=== PATIENT | male | born 1970 | race Caucasian/White ===

== ENCOUNTER → 2016-09-24 | Outpatient (CLI) | payer BC ==
[2016-09-24 13:32] LABS: ALT/SGPT 89 U/L (12-78); AST/SGOT 39 U/L (15-37); BLOOD UREA NITROGEN 17 mg/dl (7-18); BUN/CREATININE RATIO 13.9 (10-20); CALCIUM 8.5 mg/dl (8.5-10.1); CARBON DIOXIDE 26 mmol/L (21-32); CHLORIDE 107 mmol/L (98-107); GLUCOSE 94 mg/dl (70-99); POTASSIUM 4.3 mmol/L (3.5-5.1); SODIUM 142 mmol/L (136-145)
[2016-09-24 13:37] LABS: ALB/GLOB RATIO 1.3 (0.9-2); ALKALINE PHOSPHATASE 71 U/L (45-117); CHOLESTEROL 198 mg/dl (0-200); CHOLESTEROL/HDL RATIO 4.5; HDL CHOLESTEROL 44 mg/dl; LDL CHOLESTEROL CALCULATED 128 mg/dl; TRIGLYCERIDES 129 mg/dl (0-150); VERY LOW DENSITY LIPOPROT CALC 26 mg/dl
== END | disposition home or self-care (01) ==
LOC: C.LABPBG 08:30
PROVIDERS: ATTEND Neuromusculoskeletal Medicine & OMM
DX: Z00.00 Encounter for general adult medical examination without abnormal findings (principal); Z12.5 Encounter for screening for malignant neoplasm of prostate; E78.5 Hyperlipidemia, unspecified

== ENCOUNTER 2023-12-09 05:12 | Observation (INO) ==
--- NOTE | 2023-12-02 10:10 | Anesthesiology Consultation ---
Date of Service December 02, 2023 Assessment & Plan (1) Encounter for pre-operative examination: - Check BSG AM DOS - Infectious disease screening: Per assessment on 11/30/23: No known recent infectious disease contacts or current infectious disease symptoms. Chart Review Chart Review: Acceptable Risk for Surgery and Patient NOT seen in Pre Admission Testing History Surgery Operation Date: 12/09/23 07:15 Proposed Procedures p Hand Assisted Laparoscopic Nephrectomy - Farooq - Norris Byers, Height/Weight Height: 5 ft 11 in Weight: 112.037 kg Allergies Allergy/AdvReac Type Severity Reaction Status Date / Time Iodinated Contrast Media Allergy Intermediate Skin Verified 12/02/23 10:10 redness Medications Home Medications Medication Instructions Recorded Confirmed Last Taken triamcinolone acetonide 55 mcg 2 sprays intranasal QAM 03/06/19 11/30/23 09/20/21 nasal spray aerosol (Nasacort) cyanocobalamin (vitamin B-12) 1,000 mcg PO QAM 09/16/21 11/30/23 09/20/21 1,000 mcg tablet (Vitamin B-12) magnesium 250 mg tablet 250 mg PO QAM 09/16/21 11/30/23 09/20/21 omega-3 fatty acids 1,000 mg PO QAM 09/16/21 11/30/23 09/20/21 vitamin D3 250 mcg (10,000 1 cap PO QAM 09/16/21 11/30/23 09/20/21 unit)-vitamin K2 45 mcg capsule metformin 500 mg tablet 500 mg PO BID #60 tabs 09/23/23 11/30/23 Unknown hydrochlorothiazide 12.5 mg tablet 12.5 mg PO QAM #90 tabs 10/06/23 11/30/23 Unknown losartan 50 mg tablet 50 mg PO QAM #90 tabs 10/06/23 11/30/23 Unknown Past Medical History Medical History History of COVID-19 Dx 10/2020: mild, no symptoms Hyperlipidemia Hypertension Prediabetes Renal cell cancer Past Family History Family History Mother Diabetes Heart disease Kidney stones Breast cancer Hypertension Other No family history of adverse response to anesthesia Denies family history of Ovarian cancer Prostate cancer Myocardial infarction Colorectal cancer Past Surgical History Surgical History History of tooth extraction History of wisdom tooth extraction S/P arthroscopic knee surgery (2010) Right Social History Smoking Status: Never smoker tobacco type: smokeless tobacco Smoking cigarettes per day: 1/4 can per day Do You Dip or Chew Tobacco: Yes Hx Alcohol Use: No Alcohol type: beer alcohol intake frequency: a few times a month Hx Substance Use: No substance use type: does not use Lab Results Anesthesia Preop Results Results Anesthesia Widget: WBC 13.48 K/ul (4.8-10.8) H 11/22/23 Hgb 16.3 g/dl (14.0-18.0) 11/22/23 Hct 46.9 % (42.0-52.0) 11/22/23 Plt 199 K/uL (130-400) 11/22/23 Na 137 mmol/L (136-145) 11/22/23 K 4.0 mmol/L (3.5-5.1) 11/22/23 Cl 102 mmol/L (98-107) 11/22/23 CO2 26 mmol/L (21-32) 11/22/23 BUN 14 mg/dl (6-23) 11/22/23 Creat 1.07 mg/dl (0.6-1.4) 11/22/23 Glucose Level 119 mg/dl (70-99(Fasting)) H 11/22/23 PT 10.3 Seconds (9.0-12.0) 11/22/23 INR 0.9 (0.9-1.1) 11/22/23 HA1c 6.5 % (4.5-5.6) H 11/22/23 Testing Laboratory Results Urine culture (11/28/23): No growth Electrocardiogram Date: 12/01/23 Findings: + NSR @ (74) Chest X-Ray Date: 12/01/23 FINDINGS: No focal lung consolidations to suggest a pneumonia. The heart is normal in size. No pleural effusions. No pneumothorax. No acute fractures. The patient's known right lower lobe nodule is now well visualized on this modality. IMPRESSION: No acute process within the chest.
--- OUTSIDE RECORDS SUMMARY | 2023-12-09 05:54 | External Medical Summary | Summary of Care ---
Author Name Unknown Organization [facility] Address [address] [place] [address] Phone [phone] Care Team Providers Care Chief Station Engineer Name Role Phone Unavailable Primary Care Provider Unavailabl e Reason for Visit * Reason Onset Date Comments Test Results 12/01/2023 Encounter Details Date Type Department Care Team (Late st Contact Info) Description 12/01/2023 Telephone Thoracic Surg [facility] [address], [place] [phone] Fabiola Londono RN Test Results Allergies No known active allergiesdocumented as of this encounter (statuses as of 12/01/2023) Medications Medication Sig Dispensed Refills Start Date End Date Status JOHN-D 12 HOUR 60-120 MG PO [id number]:Acut e URI One pill by mouth twice a day as needed. Do not crush, cut or chew 20 Tab 0 08/18/2012 Active Triamcinolone Acetonide (NASACORT AQ) 55 MCG/ACT AEROIndications:Seas onal allergic rhinitis Administer 2 Sprays into each nostril daily. 3 Bottle 1 07/14/2015 Active documented as of this encounter (statuses as of 12/01/2023) Active Problems Problem Noted Date Diagnosed Date High triglycerides 02/05/2011 FAM HX-DIABETES MELLITUS 01/08/2005 Allergic rhinitis 01/03/2004 documented as of this encounter (statuses as of 12/01/2023) Resolved Problems Problem Noted Date Diagnosed Date Resolved Date Tobacco use disorder 08/10/2011 016 Patellofemoral syndrome 07/06/201006/17 Elevated liver enzymes 01/08/200507/08 documented as of this encounter (statuses as of 12/01/2023) Immunizations Name Administration Dates Next Due Pneumococcal Polysaccharide PPV23 (Pneumovax) Seasonal Influenza, Quadrivalent, No Preserve, I M 01/16/2015 Seasonal Influenza, Split, IIV3, No Preserve, In j 01/30/2010 TDAP, Age 7 and older, IM (Adacel) 08/08/2007 documented as of this encounter Social History Tobacco Use Types Packs/Day Years Used Date Smoking Tobacco: Former Cigarettes 0.5 3 Smokeless Tobacco: Former Comments:quit 07/2014 Alcohol Use Standard Drinks/Week Comments Yes 0 (1 standard drink = 0.6 oz pur e alcohol) social Utilities Answer Date Recorded Do you have trouble paying y our heating, water, or electric bill? (Adult - for ages 18 years and over) Not on file 10/04/2023 Is your family able to pay t he heat, water, or electric bill? (Household - for ages 0-17 years) Not on file 10/04/2023 Does your family have access to good internet? (Household - for ages 0-17 years) Not on file 10/04/2023 Social Connections Answer Date Recorded How often do you feel lonely or isolated from those around you? (Adult - for ages 18 years and over) Not on file 10/04/2023 Sex and Gender Information Value Date Recorded Sex Assigned at Not on file Gender Identity Not on file Sexual Orientation Not on file documented as of this encounter Miscellaneous Notes * Telephone Encounter - Fabiola Londono RN - 12/01/2023 2:[address] Judge's office to see if patient had a PET done. I was told "it looks like it is being done today." I asked about getting the results faxed to me once done, they requested a me to fax a request to them so they can flag it to send to me. I will await and call again to have it faxed to me and images pushed over I called [facility] to have the Ct chest pushed over. Fabiola Londono RN MSN [facility] Thoracic Surgery Nurse Navigator [facility] documented in this encounter Plan of Treatment Upcoming Encounters Date Type Department Care Team (Late st Contact Info) Description 12/22/2023 9:00 AM EDT Telemedicine Thoracic Surg [facility] [address] [place] [address] Jan Menon MD [address] [place] [address] Health Maintenance Due Date Last Done Comments HIV Screening 08/15/1986 Hepatitis C Screening 08/15/1989 Hepatitis B Vaccine (1 of 3 - 19+ 3-dose series) 08/15/1990 Depression Screening 07/09/2015 07/08/2014 Cologuard 08/15/2016 Colonoscopy 08/15/2016 Colorectal Cancer Screening 08/15/2016 Fecal Occult Blood Test 08/15/2016 Sigmoidoscopy 08/15/2016 DTaP,Tdap,and Td Vaccines (2 - Td or Tdap) 08/07/2017 08/08/2007 Lipid Panel 07/09/2019 07/08/2014, 08/16, 12/09/2011, Additional history exists Zoster Vaccines (1 of 2) 08/15/2021 COVID-19 Vaccine ( season) 2022 Influenza Vaccine (FLU shot) (#1) 2023 01/16/2015, 01/30/2010 Pneumococcal Vaccine: Pediatrics (0 to 5 Years) and At-Risk Patients (6 to 64 Years) Aged Out 01/25/2009 No longer eligible based on patient's age to complete this topic HPV (Gardasil) Vaccine Aged Out No lo nger eligible based on patient's age to complete this topic MENINGOCOCCAL (MENACTRA/MENVEO) Aged Out No longer eligible based on patient's age to complete this topic documented as of this encounter Medical Devices Not on filedocumented as of this encounter
--- OUTSIDE RECORDS SUMMARY | 2023-12-09 05:54 | External Medical Summary | Summary of Care ---
Author Name Unknown Organization [facility] Address [address] [place] [address] Phone [phone] Care Team Providers Care Pit Slagman Name Role Phone Unavailable Primary Care Provider Unavailabl e Reason for Visit * Reason Onset Date Comments Referral 12/01/2023 Encounter Details Date Type Department Care Team (Late st Contact Info) Description 12/01/2023 New Patient Triage (AIR SURVEILLANCE OPERATOR USE ONLY) Thoracic Surg [facility] [address], [place] [phone] Fabiola Londono, grinder and plater Allergies No known active allergiesdocumented as of this encounter (statuses as of 12/05/2023) Medications Medication Sig Dispensed Refills Start Date End Date Status JOHN-D 12 HOUR 60-120 MG PO [id number]:Acut e URI One pill by mouth twice a day as needed. Do not crush, cut or chew 20 Tab 0 08/18/2012 Active Triamcinolone Acetonide (NASACORT AQ) 55 MCG/ACT AEROIndications:Seas onal allergic rhinitis Administer 2 Sprays into each nostril daily. 3 Bottle 1 07/14/2015 Active documented as of this encounter (statuses as of 12/05/2023) Active Problems Problem Noted Date Diagnosed Date High triglycerides 02/05/2011 FAM HX-DIABETES MELLITUS 01/08/2005 Allergic rhinitis 01/03/2004 documented as of this encounter (statuses as of 12/05/2023) Resolved Problems Problem Noted Date Diagnosed Date Resolved Date Tobacco use disorder 08/10/2011 016 Patellofemoral syndrome 07/06/201006/17 Elevated liver enzymes 01/08/200507/08 documented as of this encounter (statuses as of 12/05/2023) Immunizations Name Administration Dates Next Due Pneumococcal [...] on file documented as of this encounter Progress Notes * Bhargavi Weber PA-C - 12/05/2023 5:12 PM EDT Does patient need to be seen?: Yes Modality: Office visit Urgency: Within 30 days (routine) Discussed care plan with patient or proxy?: Yes Patient contacted by Fabiola Londono RN Communicated with patient on Date (mm/dutch/yyyy): 12/01/2023 at Time ([facility]): [phone] * Fabiola Londono RN - 12/01/2023 3:35 PM EDT New Patient Triage What is the diagnosis/reason for referral?: RLL nodule, newly diagnosed renal cell carcinoma and CLL. Enter order ID here: [id number] Specialty specific documentation: Cardiac and Thoracic Surgery Discussed care plan with patient or proxy?: Yes called and spoke with Mr. Medeiros regarding referral to Dr. Menon from Dr. Judge. Offered appt 12/13/23, he stated that he is having his kidney surgery 12/09/23 and is not sure how hewill be post op to have an appt that soon after. He preferred to wait 2 weeks. I offered him 12/22/23at 9am, he will do a video visit with Dr. Menon to start. I confirmed his email address as well and updated in EPIC chart. Called [facility] to have the CT chest pushed over [facility] He just had his PET done today 12/01/23, I will have report and images pushed over once read. He will most likely need PFTs as well. Communicated with patient on Date (mm/dd/yyyy): 12/01/2023 at Time ([facility]): [phone] Fabiola Londono RN MSN [facility] Thoracic Surgery Nurse Navigator [facility] documented in this encounter Plan of Treatment Upcoming Encounters Date Type Department Care Team (Late st Contact Info) Description 12/22/2023 9:00 AM EDT Telemedicine Thoracic Surg [facility] [address] [place] [address] Jan Menon MD [address] [place] [address] Health Maintenance Due Date Last Done Comments [...] (1 of 2) 08/15/2021 COVID-19 Vaccine ( - season) 2022 Influenza Vaccine (FLU shot) (#1) [...]
[2023-12-09] MEDS: LR 15ML/HR IV SCH (05:55)
[2023-12-09] MEDS ORDERED: ATROPINE SULFATE 0.1 MG/ML 10ML SYR IV PRN (06:47)
[2023-12-09] MEDS ORDERED: ONDANSETRON INJ 2 MG/ML 2 ML VIAL IV PRN (06:47)
[2023-12-09] MEDS ORDERED: fentaNYL citrate PF 100 MCG/2 ML VIAL IV PRN (06:47)
[2023-12-09] MEDS ORDERED: ePHEDrine sulfate 50 MG/ML AMP IV PRN (06:47)
[2023-12-09] MEDS ORDERED: MIDAZOLAM HCL 1 MG/ML 2ML VIAL ONE (06:54)
[2023-12-09] MEDS ORDERED: fentaNYL citrate PF 100 MCG/2 ML VIAL ONE (06:54)
[2023-12-09] MEDS ORDERED: DexMEDEtomidine HCL IV 100 MCG/ML VIAL IV ONE (06:56)
--- NOTE | 2023-12-09 06:56 | History & Physical Bridge Note ---
Date of Service December 09, 2023 History & Physical Bridge Note I have examined the patient, reviewed the History & Physical and in the interval since the performance of the History & Physical I have noted the following changes of clinical significance: no changes noted
[2023-12-09] MEDS ORDERED: ALBUMIN HUMAN 5% 12.5 GM/250 ML VIAL IV ONE (07:05)
[2023-12-09] MEDS ORDERED: HYDROmorphone INJ 2 MG/ML SYR/VIAL ONE (07:45)
[2023-12-09] MEDS ORDERED: KETAMINE HCL 10MG/ML SYR ONE (08:07)
[2023-12-09] MEDS ORDERED: DEXAMETHASONE SOD INJ 4 MG/ML VIAL ONE (08:34)
[2023-12-09] MEDS ORDERED: ONDANSETRON INJ 2 MG/ML 2 ML VIAL ONE (08:34)
[2023-12-09] MEDS ORDERED: LIDOCAINE 2% 2 ML VIAL/AMP(20MG/ML) INFIL ONE (08:34)
[2023-12-09] MEDS ORDERED: ROCURONIUM BROMIDE 10 MG/ML 5 ML VIAL IV ONE (08:34)
[2023-12-09] MEDS: BUPIVACAINE 0.5 % 5 MG/1 ML MPF 30ML VIAL ONE (09:02)
[2023-12-09] MEDS ORDERED: SUGAMMADEX SODIUM 200 MG/2 ML VIAL IV ONE (09:10)
--- NOTE | 2023-12-09 09:38 | Operative Report ---
PG Post Operative Report Pre & Post Diagnosis Operation Date: 12/09/23 07:15 Pre-Op Diagnosis: Renal Mass, Renal Cell Carcinoma Post-Op Diagnosis: Renal Mass, Renal Cell Carcinoma I identified the patient and participated in the time-out.: Yes Procedure Operation Date: 12/09/23 07:15 Actual Procedures p Hand Assisted Laparoscopic Nephrectomy, Extensive lysis of adhesions - Left(Left) - Norris Byers DO Surgeon Norris Byers, II, DO Boarding Specialist PONCE Martin Estimated Blood Loss 75 Findings Consistent with Post-Op Diagnosis Significant renal mass of left kidney. Numerous adhesions along the left side. Numerous larger veins within the retroperitoneum likely coming off of the large left tumor. Specimens Left radical kidney Drains 18 Fr Bunch catheter Anesthesia Type General Complications none Disposition Disposition: Recovery Room Indications Patient with suspicious left renal mass. Had biopsy of left renal mass which showed RCC. Risk and benefits were discussed at length. Patient elected to undergo a hand assisted laparoscopic radical nephrectomy. Description of Procedure The patient was brought to the operative suite and placed under general endotracheal intubation anesthesia in the supine position. The patient was positioned with the left side propped with support. The patient was placed into a flex'ed position and then placed into mild Trendelenburg. At this point, the patient prepped and draped in the usual sterile fashion and a timeout was completed. Preoperative antibiotics had been given. SCD's were placed on the patient's lower extremities. A catheter was placed using sterile technique. With the time out completed the patient was leveled and the skin was marked. A midline incision superior to the umbilicus was marked. The area was anesthetized and an incision was made into the skin and subcutaneous tissues. The tissues were gently dissected to expose the fascial layer. A hemostat was used to gently grasp the anterior rectus sheath and a Metzenbaum scissor was used to open and expose the peritoneum. This was then entered and the entire area inspected. The abdominal cavity was inspected and no significant adhesions were noted in the region. The rectus sheath was then further opened and the rectus muscles retracted laterally. At this point, the hand assist gel port was placed. The midline and lateral camera/working port sites were assessed. The planned port sites were anesthetized. A small incision was made into the skin and subcutaneous tissues. A 12 mm camera port was placed. This was done with direct palpation as well as direct visualization. The cavity was insufflated to 15mmHG. A laparoscopic camera was placed and the abdominal cavity inspected. No concerning features were noted. The second 12 mm port was then placed in a similar fashion as well as a 3rd port in the lateral position. The nurse practitioner Marley Martin acted as a seo assistant and was integral in port placement, camera utilization, and first assisting for the entire remainder of the procedure. She remained in sterile attire and then proceeded to assist the remainder of the case. At this point, the white line of Toldt was assessed and opened. Numerous adhesions were noted and area appeared mildly inflamed possibly due to the biopsy. For dissection blunt dissection was utilized. The colon was mobilized medially to expose the retroperitoneum and the area assessed. Adhesions were freed to allow mobilization. For more significant adhesions, the laparoscopic harmonic device was utilized. Care was taken to monitor the bowel. A significant amount of adhesions were noted from the colon and were freed. These were dissected with blunt technique. Cautery was used to assist dissection and control bleeding. The retroperitoneal fat was assessed. Approx 20 minutes were necessary for lysis of the adhesions and freeing of the surrounding structures. The ureter and gonadal vein were identified. The ureter was isolated and dissection was taken superiorly. This was followed to the renal pelvis. Numerous accessory vessels were noted in the retroperitoneum going inferiorly and laterally and appeared to be associated with the tumor. These were clipped and ligated using the hemolock clips and the laparoscopic harmonic device. The Renal Artery and Vein were then cleaned and exposed. There appeared to be two renal veins. The tissues around the vessels were also found to be thickened. No mass was palpated in the vessles. They were isolated and were palpated and inspected for any signs of tumor within the vessel or enlarged lymph nodes or tissues. A window was dissected to allow the stapler access to th e vessels. The Endo ISAAK stapler with a vascular load was selected. This was placed across the renal artery and the two renal veins. The stapler was engaged and this was inspected. Good placement was noted and the tips were free and all surrounding tissue was retracted away from the are. The vein and the artery were transected after confirming isolation of the artery. The stump was assessed and no major bleeding was noted. A second vascular load was utilized to ligate and cut through additional surround tissues. The kidney and surrounding area was inspected. No major bleeding or areas of concern. The perinephric tissues posterior, lateral, superior, and inferior were then freed. Some Significant adhesions were noted laterally and superiorly. The Adrenal gland was not fully able to be identified but appeared to be spared during dissection and was not grossly identified with the mass/surgical specimen. No obvious tumor invasion into the surrounding tissues. This dissection was completed bluntly and with the harmonic device. Once fully freed and any accessory vessels and surrounding tissues fulgurated and sealed with the harmonic device, the ureter was dissected inferiorly with the surrounding retroperitoneal tissues. A stapler was used just superior to the crossing of the iliac vessels to staple and transect the ureter and retroperitoneal tissues. The specimen was then fully freed. It was then removed through the hand assist port and sent for pathologic analysis after inspection. The wound bed was thoroughly inspected with care to assess the spleen, bowel, and descending colon. The area was irrigated. No severe or significant bleeding was noted. The vessel stumps were also inspected. No bleeding or other major areas of concern were discovered. Surgicel hemostatic agent sheets were placed under and behind the spleen as well as on the vessel stumps. Hemostatic agents Floseal was also placed. This Hemostatic agent was also placed on the vessel stumps. No major bleeding or other issues. Tisseel was then placed over the resection bed. The entire dissection space was inspected one final time. No bleeding or injuries or areas of concern were noted. No tumor or other concerning features were noted. At this point, The port sites were all assessed laparoscopically. The laparoscopic port sites were closed with the Dwight Acevedo device and a 1-0 Vicryl suture. The gel port was removed and the midline incision and fascial tissue was assessed. The wound bed was inspected a final time without any major bleeding. Counts were completed and correct x 2. The patient was moved out of the flexed position. The rectus sheath was closed with a running 1-0 PDS suture . The skin at each port site as well as the skin of the midline incision was closed with surgical ariel. The area was cleaned and bandages were placed. The patient was moved back completely into the supine position The patient was further cleaned, aroused from anesthesia, and transferred to the pacu in stable condition having tolerated the procedure well with no complications. Counts were correct x 2 and no issues or complications were appreciated. I was present and participated in all aspects of the procedure. The nurse practitioner Marley Martin as listed above was critical in the portions as mentioned above. She was also involved with the closure process including fascial closure Will plan to admit/observe postoperatively and monitor. Bunch to be removed in the morning. I attest to the content of the Intraoperative Record and any orders documented therein. Any exceptions are noted below.
[2023-12-09 10:24] LABS: Hematocrit (blood only) 42.6 % (42.0-52.0); Hemoglobin 14.3 g/dl (14.0-18.0); Mean Corpuscular Hemoglobin 28.5 pg (25.0-34.0); Mean Corpuscular Hgb Conc 33.6 g/dL (32.0-36.0); Mean Platelet Volume 10.2 fL (9.4-12.4); Platelet Count 210 K/uL (130-400); RDW Coefficient of Variation 12.6 % (11.5-14.5); RDW Standard Deviation 38.7 fL (36.4-46.3); Red Blood Count 5.01 M/uL (4.70-6.10)
[2023-12-09 10:39] LABS: BUN Creatinine Ratio 12.5 (10-20); Calcium 9.1 mg/dl (8.6-10.3); Est GFR (African American) 64.3 ml/min; Est GFR (Non-African American) 55.4 ml/min; Potassium 5.6 mmol/L (3.5-5.1)
--- NOTE | 2023-12-09 10:47 | Anesthesiology Progress Note ---
Date of Service December 09, 2023 Anesthesia Post Procedure Vital Signs Vital Signs: Temp Pulse Pulse Resp BP Pulse Ox O2 Del Method 12/09/23 10:35 77 13 132/94 97 Nasal Cannula 12/09/23 10:25 81 13 146/88 H 97 Oxymask 12/09/23 10:15 78 17 127/81 97 Oxymask 12/09/23 10:05 78 17 110/78 96 Oxymask 12/09/23 09:55 79 10 L 106/74 94 Oxymask 12/09/23 09:45 36.0 C L 79 13 114/72 94 Oxymask 12/09/23 05:55 36.6 C 72 20 140/94 95 Room Air O2 Flow Rate 12/09/23 10:35 4 12/09/23 10:25 10 12/09/23 10:15 10 12/09/23 10:05 10 12/09/23 09:55 10 12/09/23 09:45 10 12/09/23 05:55 Transfer of Care Handoff Completed per policy Notes Mental Status: alert / awake / arousable Patient Amnestic to Procedure: Yes Nausea / Vomiting: adequately controlled Pain: adequately controlled Airway Patency, RR, SpO2: stable & adequate BP & HR: stable & adequate Hydration State: stable & adequate Anesthetic Complications: no major complications apparent and Pt Satisfied with anesthetic care
[2023-12-09 10:49] LABS: Basophils # (auto) 0.04 K/uL (0.00-0.20); Basophils % (auto) 0.3 %; Eosinophils # (auto) 0.06 K/uL (0.00-0.50); Eosinophils % (auto) 0.4 %; Immature Granulocytes # (auto) 0.07 K/uL (0.01-0.20); Immature Granulocytes % (auto) 0.4 %; Lymphocytes # (auto) 4.04 K/uL (1.20-3.40); Lymphocytes % (auto) 25.4 %; Monocytes # (auto) 0.83 K/uL (0.11-0.59); Monocytes % (auto) 5.2 %; Neutrophils # (auto) 10.86 K/uL (1.40-6.50); Neutrophils % (auto) 68.3 %
[2023-12-09] MEDS ORDERED: ACETAMINOPHEN 325 MG TAB PO PRN (11:20)
[2023-12-09] MEDS ORDERED: PHARMACY GLYCEMIC MGMT CONSULT PRN (11:20)
[2023-12-09] MEDS: FLOSEAL HEMOSTATIC MATRIX 10ML TOP ONE (11:22)
[2023-12-09] MEDS: TISSEEL FIBRIN SEALANT 10ML TOP ONE (11:23)
[2023-12-09] MEDS: ceFAZolin 2000MG 2,000 MG/15 ML SYR IV SCH ×2 (11:23→13:13)
[2023-12-09] MEDS: LACTATED RINGER'S 1,000 ML IV SCH (11:37)
[2023-12-09] MEDS: oxyCODONE HCL IR 5 MG TAB (IMMEDIATE RELEASE) PO PRN ×2 (11:37→21:34)
--- NOTE | 2023-12-09 12:06 | Pharmacy Report ---
Pharmacy Glycemic Short Note 2 - Date of Service December 09, 2023 - Glycemic Short BSG Results (Last 24 hours): 12/09/23 12/09/23 12/09/23 05:57 10:07 11:27 Glucose 158 H POC Glucose 129 H 142 H OUTPATIENT ANTIDIABETIC REGIMEN: * Metformin 500 mg BID * A1C: 6.5% (11/22/2023) ASSESSMENT: * Yevgeniy is a 53 YO M admitted for a nephrectomy and with a history of T2DM. Pharmacy has been consulted to assist with glycemic management while inpatient. * Patient received 4 mg IV of dexamethasone pre-operatively, BSG was 129 pre- operatively, and BSG was 148 post-operatively. A one time order of Lantus was ordered in order to reduce risk of steroid induced hyperglycemia. Will continue to monitor BSG and assess need for basal insulin. * Novolog was initiated at a weight based stress of 2 (using adjusted body weight). Will continue to assess and adjust as necessary. PLAN FOR INPATIENT GLYCEMIC CONTROL: * Hold outpatient oral diabetes medications * Basal insulin * Lantus 10 units SQ once @ 1200 12/09/2023, will assess to determine need for basal insulin * Bolus insulin * NovoLog per scale ACHS or Q6hrs while NPO * Goal Range: Low 110 mg/dL - High 140 mg/dL * Correction Factor: 25 mg/dL/unit * Nutritional / Prandial insulin per carb ratio of 1 unit per 9 grams CHO consumed
[2023-12-09] MEDS ORDERED: GLUCOSE 10 TAB/TUBE PO PRN (12:30)
[2023-12-09] MEDS ORDERED: GLUCAGON FOR INJ 1 MG VIAL IM PRN (12:30)
[2023-12-09] MEDS ORDERED: CARBOHYDRATES FOR HYPOGLYCEMIA PO PRN (12:30)
[2023-12-09] MEDS ORDERED: GLUCOSE 40% GEL 15 GM TUBE PO PRN (12:30)
[2023-12-09] MEDS ORDERED: DEXTROSE 50% 50 ML SYRINGE IV PRN (12:30)
[2023-12-09] MEDS: LANTUS PER UNIT CHARGE SC ONE (12:34)
[2023-12-09] MEDS: MoRPHine SULFATE 2 MG/ML CARP IV PRN (12:35)
[2023-12-09] MEDS: MoRPHine SULFATE 4 MG/ML 1 ML CARP\\VIAL IV PRN (14:22)
[2023-12-09] MEDS: INSULIN ASPART PER UNIT CHARGE SC SCH (17:36)
[2023-12-09 18:37] LABS: Hematocrit (blood only) 42.1 % (42.0-52.0); Hemoglobin 14.6 g/dl (14.0-18.0); Mean Corpuscular Hemoglobin 28.7 pg (25.0-34.0); Mean Corpuscular Hgb Conc 34.7 g/dL (32.0-36.0); Mean Corpuscular Volume 82.9 fL (80.0-100.0); Mean Platelet Volume 10.3 fL (9.4-12.4); Platelet Count 202 K/uL (130-400); RDW Coefficient of Variation 12.5 % (11.5-14.5); RDW Standard Deviation 37.9 fL (36.4-46.3); Red Blood Count 5.08 M/uL (4.70-6.10); White Blood Count 15.71 K/ul (4.8-10.8)
[2023-12-09 18:51] LABS: BUN Creatinine Ratio 13.6 (10-20); Calcium 9.3 mg/dl (8.6-10.3); Creatinine Clr Calc Pharmacy 71.1 ml/min; Est GFR (African American) 59.2 ml/min; Est GFR (Non-African American) 51.1 ml/min; Potassium 4.6 mmol/L (3.5-5.1)
[2023-12-09] MEDS: DOCUSATE SODIUM 100 MG CAP PO SCH (20:13)
[2023-12-09] MEDS: HEPARIN SOD 5,000 UNIT/0.5 ML VIAL SQ SCH (20:13)
[2023-12-09] MEDS: ONDANSETRON INJ 2 MG/ML 2 ML VIAL IV PRN (20:15)
[2023-12-10] MEDS: INSULIN ASPART PER UNIT CHARGE SC SCH
[2023-12-10] MEDS: CEFEPIME 2,000 MG in SYRINGE 0 ML IV SCH
[2023-12-10 07:04] LABS: Hematocrit (blood only) 41.1 % (42.0-52.0); Mean Corpuscular Hemoglobin 28.5 pg (25.0-34.0); Mean Corpuscular Hgb Conc 34.1 g/dL (32.0-36.0); Mean Corpuscular Volume 83.7 fL (80.0-100.0); Mean Platelet Volume 10.4 fL (9.4-12.4); Platelet Count 188 K/uL (130-400); RDW Coefficient of Variation 12.8 % (11.5-14.5); RDW Standard Deviation 38.6 fL (36.4-46.3); Red Blood Count 4.91 M/uL (4.70-6.10); White Blood Count 15.15 K/ul (4.8-10.8)
[2023-12-10 07:41] LABS: BUN Creatinine Ratio 10.9 (10-20); Calcium 8.8 mg/dl (8.6-10.3); Creatinine Clr Calc Pharmacy 62.6 ml/min; Est GFR (African American) 50.8 ml/min; Est GFR (Non-African American) 43.8 ml/min; Potassium 4.1 mmol/L (3.5-5.1)
[2023-12-10 08:05] LABS: ALC (manual) 6.82 K/uL (1.2-3.4); ANC (manual) 7.42 K/uL (1.4-6.5); Lymphocytes # (manual) 2.88 K/uL (1.2-3.4); Lymphocytes % (manual) 19 %; Monocytes # (manual) 0.91 K/uL (0.11-0.59); Monocytes % (manual) 6 %; Neutrophils # (manual) 7.42 K/uL (1.40-6.50); Neutrophils % (manual) 49 %; Reactive Lymphocytes # (manual) 3.94 K/uL; Reactive Lymphocytes % (manual) 26 %
[2023-12-10] MEDS: hydroCHLOROthiazide 25 MG TAB PO SCH (08:39)
[2023-12-10] MEDS: MAGNESIUM OXIDE 400 MG TAB PO SCH (08:40)
[2023-12-10] MEDS: LOSARTAN POTASSIUM 50 MG TAB PO SCH (08:40)
--- NOTE | 2023-12-10 12:02 | Urology Progress Note ---
Date of Service December 10, 2023 Assessment & Plan (1) Renal cell cancer: (2) Hypertension: (3) Prediabetes: Plan Patient postop day 1 status post left hand-assisted radical nephrectomy for large renal mass positive for RCC. Patient had been recovering. Has been slowly increasing activity. Has been dealing with abdominal distention and discomfort. Has had some pain in the abdomen. Patient has been moderately hypertensive since the procedure. Has history of prediabetes as well as new diagnosis of CLL. During workup for CLL had found large renal mass which was positive for RCC on biopsy. Patient still has catheter in place will have this removed now. Will have patient's IV lock. Patient did have low-grade fever last evening. Tmax was 37.9. Did discuss this extensively with patient and family. May have been secondary to recent procedure versus other issue. Will plan to monitor this closely. Antibiotics were escalated to cefepime last evening. Has been tolerating the IV antibiotic. Will plan to continue it for now. Will plan to continue to monitor. With the persistent hypertension and the recent nephrectomy may need to have some adjustment of blood pressure medicine. Will consult hospitalist team for evaluation. Patient has been tolerating diet. Has been slowly ambulating. Encourage patient to continue to utilize incentive spirometer. Lab work has remained stable. Hemoglobin came back at 14. White count is mildly elevated at 15.15. Creatinine increased to 1.75 after left radical nephrectomy. Will continue with close observation. Possible discharge tomorrow if patient continues to improve and no signs of persistent fever. Admission and Anticipated Discharge Date Admission Date: December 09, 2023 Subjective Postop from urologic surgery. Patient has been tolerating well, but is having some pain and discomfort. Incisions have been mild sore. Distension of abdomen/bloating. Having some abdominal distension/gas pains. Has tolerated catheter. Has not had severe pain or uncontrollable pain. Patient has been ambulating. Has not had bowel movement or major change. No new nausea or vomiting. Had tolerated anesthesia without major problems Tolerated liquid diet postoperatively. Review of Systems Review of Systems: All systems reviewed & are unremarkable except as noted in HPI & below Physical Exam Physical Exam: General: Alert in no acute distress. HEENT: Normocephalic Atraumatic. Inspection normal. Cranial Nerves 2-12 Grossly intact. Normal inspection of face. Normal inspection of neck. Psychologic: Normal affect. Respiratory: Nonlabored. No use of accessory muscles. No tachypnea or dyspnea. Cardiovascular: No tachycardia Skin: Epes and Dry. No rashes or visible lesions. Extremities/Lymphatics: No edema Abdomen: Appropriately tender. Mild distended. No rebound or guarding. Wound: Clean, dry, covered. : lozada in place. draining clear yellow urine. Results & Data Vital Signs (Past 12 Hours) Vital Signs Temp Pulse Resp BP BP Pulse Ox O2 Del Method 12/10/23 08:15 Room Air 12/10/23 07:28 36.6 C 60 16 177/107 H 95 Room Air 12/10/23 04:17 37 C 102 H 20 165/102 H 94 Room Air PG Care Time/CCT Total # of Minutes Spent Total Time Spent with Patient: Total time spent is greater than 50% in coordination of care (as documented) at patient's floor/unit and/or counseling patient: Coding Level of Care Code None Diagnoses Renal cell cancer C64.9 Hypertension I10 Prediabetes R73.03
[2023-12-10] MEDS ORDERED: hydrALAZINE HCL 20 MG/ML VIAL IV PRN (12:54)
--- NOTE | 2023-12-10 12:59 | Hospitalist Consultation ---
Date of Consultation December 10, 2023 Assessment & Plan (1) Postoperative hypertension: VTE / bowel / pain managmenet per primary urology team Not unusual for s/p nephrectomy however unclear in acute setting that he will need change in his chronic medical regiment Uncontrolled pain also likely playing a part and patient more willing to take pain medications now Recommend initially treating perioperative hypertension with hydralazine 5mg IV for sBP > 180 or dBP > 110. (2) T2DM (type 2 diabetes mellitus): HbA1C 6.5 in November Pharamcy consulted for glycemic control while inpatient with novolog alone and getting 1-2 units Can restart metformin on discharge Plan Thank you for the consult we will continue to follow the patient with you History of Present Illness Reason for Consultation: HTN post op. S/p Nephrectomy. CLL and RCC Attending Physician: Norris Byers, II, DO History of Present Illness Yevgeniy Medeiros is a 53 year old male post op day #1 Hand Assisted Laparoscopic Nephrectomy performed by Dr Byers yesterday. Estimated blood loss 75ml. No complications noted. He reports current pain severity from operation 07/26 - he has been trying to not use the pain medication but now more willing. No yet passed flatus. No chest pain, vision changes, headache or lightheadedness. Other than his recent surgery he is feeling well. Allergies Allergy/AdvReac Type Severity Reaction Status Date / Time Iodinated Contrast Media Allergy Intermediate Skin Verified 12/02/23 10:10 redness Home Medications Medication Instructions Recorded Confirmed Type triamcinolone acetonide 55 mcg 2 sprays intranasal QAM 03/06/19 12/09/23 History nasal spray aerosol (Nasacort) cyanocobalamin (vitamin B-12) 1,000 mcg PO QAM 09/16/21 12/09/23 History 1,000 mcg tablet (Vitamin B-12) magnesium 250 mg tablet 250 mg PO QAM 09/16/21 12/09/23 History omega-3 fatty acids 1,000 mg PO QAM 09/16/21 12/09/23 History vitamin D3 250 mcg (10,000 1 cap PO QAM 09/16/21 12/09/23 History unit)-vitamin K2 45 mcg capsule metformin 500 mg tablet 500 mg PO BID #60 tabs 09/23/23 12/09/23 Rx hydrochlorothiazide 12.5 mg tablet 12.5 mg PO QAM #90 tabs 10/06/23 12/09/23 Rx losartan 50 mg tablet 50 mg PO QAM #90 tabs 10/06/23 12/09/23 Rx Patient History Medical History (Updated 12/10/23 @ 13:18 by Ho Weber MD) T2DM (type 2 diabetes mellitus) Renal cell cancer Hypertension Prediabetes Hyperlipidemia History of COVID-19 Dx 10/2020: mild, no symptoms Surgical History History of tooth extraction History of wisdom tooth extraction S/P arthroscopic knee surgery (2010) Right Family History Mother Diabetes Heart disease Kidney stones Breast cancer Hypertension Other No family history of adverse response to anesthesia Denies family history of Ovarian cancer Prostate cancer Myocardial infarction Colorectal cancer Social History Smoking Status: Never smoker Tobacco Type: Smokeless Tobacco (Dip or Chew) Cigarettes Per Day: 1/4 can per day; Second Hand Exposure: No; Do You Dip or Chew Tobacco: Yes; Tobacco Cessation Education Requested by Patient: No Hx Alcohol Use: No Hx Substance Use: No Preferred Language: [place] Communication Ability: Effective Visual Impairment: No Limitations Hearing Ability: Normal Oyster Shipper Required: No Beliefs That Will Affect Care: None marital status: Single marital status details: Lives with Annamaria'. Current Living Situation: Family current occupational status: employed How many Children do You have: 3 Other Information That Helps Us Care for You: No Feels Safe at Home: Yes Safety Concerns: Feels Safe At This Time Childhood Exposure to Second-Hand Smoke: Yes Diet: regular Diet Comment: regular caffeine: Yes (Soda x 2 per day Coffee x 2 per day.) during the past year weight has: remained stable Dental Care, Regularly: Yes Physical Activity Frequency: Daily Seatbelt Use: always Sunscreen Use: Yes Assistive Devices: Glasses Review of Systems 2 Review of Systems: All systems reviewed & are unremarkable except as noted in HPI & below Physical Exam Constitutional: WD/WN, vitals as above ENMT: external ear and nose normal, oropharynx normal Respiratory: normal respiratory effort, lungs clear to auscultation Cardiovascular: RRR, no murmur, no edema Gastrointestinal (Abdomen): Inspection/Auscultation: abdomen normal to inspection (incisions c/d/i) Percussion/Palpation: + abdomen tender (mild around surgical incision sites) and abdomen soft; no guarding and abdomen not rigid Skin: no rashes, warm and dry Neurologic: moves all extremities and awake; not confused Psychiatric: A+Ox3, euthymic affect Results & Data Results & Data Vital Signs (Past 12 Hours) Vital Signs Temp Pulse Resp BP BP Pulse Ox O2 Del Method 12/10/23 08:15 Room Air 12/10/23 07:28 36.6 C 60 16 177/107 H 95 Room Air 12/10/23 04:17 37 C 102 H 20 165/102 H 94 Room Air Laboratory Results Abnormal lab results 12/09/23 12/09/23 12/09/23 Range/Units 16:15 18:10 21:19 WBC 15.71 H (4.8-10.8) K/ul Hct (42.0-52.0) % Neutrophils # (Manual) (1.40-6.50) K/uL Total Absolute Neuts (1.4-6.5) K/uL Total Abs Lymphocytes (1.2-3.4) K/uL Monocytes # (Manual) (0.11-0.59) K/uL Sodium (136-145) mmol/L Creatinine 1.54 H (0.6-1.4) mg/dl Glucose 148 H (70-99(Fasting)) mg/dl POC Glucose 131 H 143 H (70-99) mg/dl 12/09/23 12/10/23 12/10/23 Range/Units 23:45 04:08 06:35 WBC 15.15 H (4.8-10.8) K/ul Hct 41.1 L (42.0-52.0) % Neutrophils # (Manual) 7.42 H (1.40-6.50) K/uL Total Absolute Neuts 7.42 H (1.4-6.5) K/uL Total Abs Lymphocytes 6.82 H (1.2-3.4) K/uL Monocytes # (Manual) 0.91 H (0.11-0.59) K/uL Sodium 134 L (136-145) mmol/L Creatinine 1.75 H (0.6-1.4) mg/dl Glucose 140 H (70-99(Fasting)) mg/dl POC Glucose 131 H 129 H (70-99) mg/dl 12/10/23 12/10/23 Range/Units 07:39 11:46 WBC (4.8-10.8) K/ul Hct (42.0-52.0) % Neutrophils # (Manual) (1.40-6.50) K/uL Total Absolute Neuts (1.4-6.5) K/uL Total Abs Lymphocytes (1.2-3.4) K/uL Monocytes # (Manual) (0.11-0.59) K/uL Sodium (136-145) mmol/L Creatinine (0.6-1.4) mg/dl Glucose (70-99(Fasting)) mg/dl POC Glucose 150 H 112 H (70-99) mg/dl PG Care Time/CCT Total # of Minutes Spent Total Time Spent with Patient: Total time spent is greater than 50% in coordination of care (as documented) at patient's floor/unit and/or counseling patient: Coding Level of Care Code 05347 IN/OBS CONSULT LVL 3,45M Diagnoses Postoperative hypertension I97.3 T2DM (type 2 diabetes mellitus) E11.9
[2023-12-10 22:42] LABS: Hematocrit (blood only) 43.4 % (42.0-52.0); Hemoglobin 14.5 g/dl (14.0-18.0); Mean Corpuscular Hemoglobin 28.3 pg (25.0-34.0); Mean Corpuscular Hgb Conc 33.4 g/dL (32.0-36.0); Mean Corpuscular Volume 84.8 fL (80.0-100.0); Mean Platelet Volume 10.4 fL (9.4-12.4); Platelet Count 205 K/uL (130-400); RDW Coefficient of Variation 12.7 % (11.5-14.5); RDW Standard Deviation 39.1 fL (36.4-46.3); Red Blood Count 5.12 M/uL (4.70-6.10); White Blood Count 16.32 K/ul (4.8-10.8)
[2023-12-10 23:01] LABS: Basophils # (auto) 0.03 K/uL (0.00-0.20); Basophils % (auto) 0.2 %; Eosinophils # (auto) 0.01 K/uL (0.00-0.50); Eosinophils % (auto) 0.1 %; Immature Granulocytes # (auto) 0.06 K/uL (0.01-0.20); Immature Granulocytes % (auto) 0.4 %; Lymphocytes # (auto) 5.35 K/uL (1.20-3.40); Lymphocytes % (auto) 32.8 %; Monocytes # (auto) 1.88 K/uL (0.11-0.59); Monocytes % (auto) 11.5 %; Neutrophils # (auto) 8.99 K/uL (1.40-6.50)
[2023-12-10 23:02] LABS: Albumin Globulin Ratio 1.6 (0.9-2); Albumin Level 4.5 gm/dl (3.4-5.0); BUN Creatinine Ratio 10.4 (10-20); Bilirubin,Total 1.7 mg/dl (0.2-1.0); Calcium 9.3 mg/dl (8.6-10.3); Creatinine Clr Calc Pharmacy 54.2 ml/min; Est GFR (African American) 42.7 ml/min; Est GFR (Non-African American) 36.8 ml/min; Globulin 2.9 gm/dl (2.5-4.0); Potassium 3.9 mmol/L (3.5-5.1); Total Protein 7.4 gm/dl (6.0-8.3)
[2023-12-10] MEDS: SODIUM CHLORIDE 0.9% 500 ML IV ONE (23:12)
[2023-12-10 23:50] VITALS: RESP 16
[2023-12-10 23:57] VITALS: O2SAT 94
[2023-12-11 07:23] LABS: Hematocrit (blood only) 40.4 % (42.0-52.0); Hemoglobin 13.5 g/dl (14.0-18.0); Mean Corpuscular Hemoglobin 28.6 pg (25.0-34.0); Mean Corpuscular Hgb Conc 33.4 g/dL (32.0-36.0); Mean Corpuscular Volume 85.6 fL (80.0-100.0); Mean Platelet Volume 10.6 fL (9.4-12.4); Platelet Count 163 K/uL (130-400); RDW Coefficient of Variation 12.6 % (11.5-14.5); RDW Standard Deviation 39.3 fL (36.4-46.3); Red Blood Count 4.72 M/uL (4.70-6.10); White Blood Count 14.77 K/ul (4.8-10.8)
--- NOTE | 2023-12-11 07:34 | Hospitalist Progress Note ---
Date of Service December 11, 2023 Assessment & Plan (1) Postoperative hypertension: (2) Renal cell cancer: (3) CLL (chronic lymphocytic leukemia): (4) S/p nephrectomy: (5) Elevated temperature: (6) T2DM (type 2 diabetes mellitus): Plan Patient is a 53 yo M w/ a PMHx of HTN, HLD, T2DM who is s/p nephrectomy, with recent Dx of RCC (renal cell carcinoma) and CLL (chronic lymphocytic lymphoma). 1) Postoperative hypertension (VTE / bowel / pain management per primary urology team) Not unusual for s/p nephrectomy patient however unclear in acute setting that he will need change in his chronic medical regimen Uncontrolled pain also likely playing a part and patient more willing to take pain medications now Recommend initially treating perioperative hypertension with hydralazine 5mg IV for sBP > 180 or dBP > 110. Continue pain med regimen as recommended by surgeon to minimize pain (a component of elevated BPs is d/t pain) Follow up w/ PCP to have BP check 1 wk after discharge, pt should consider buying home BP cuff, taking BP's at home 2) Postoperative elevated temperature WBC, 14.8 <-- 16.3 (55% Neut); Tmax, 37.9 - s/p 4 doses of cefepime, 2000 mg, IV, q8hrs --> now discontinued 3) T2DM (type 2 diabetes mellitus) HbA1C, 6.5 (November,) Pharmacy consulted for glycemic control while inpatient with novolog alone and getting 1-2 units Can restart metformin on discharge, follow up as outpatient to get [id number] A1C 4) Constipation - patient on opiate meds for pain, decreased ambulation due to to perioperative surgery period increasing constipation - Miralax, 17 g, PO, daily, PRN Thank you for allowing us to participate in the ongoing care of this patient. At this point we will sign off, if there are no other additional concerns. Code status: Full code Disposition: Med-Surg DVT prophylaxis:heparin, 5000 U, subQ, BID FENGI: regular diet Admission and Anticipated Discharge Date Admission Date: December 09, 2023 Supervising Physician Co-Signing Physician Notes I personally examined the patient and verified all duncan points of history and exam, discussed case, and agree with decision making with Dr Govea Feeling okay. No concerns. Vitals noted, in general he is awake and alert pleasant no distress. HEENT normocephalic atraumatic mucous membranes moist. Breathing unlabored no accessory muscle use good effort. Skin without rashes pallor or icterus. Elevated blood pressuresagree that his highest numbers are likely situational. Good evidence would suggest that in the inpatient setting, treating asymptomatic hypertension likely will lead to more harm than good, and given that he is not showing any hypertensive urgency symptoms, would simply manage with his regular home medications and follow. Safe/stable for home in this regard. AKIseems to be commensurate with what would be expected with nephrectomy. Ongoing outpatient follow-up. Appears medically stable from our perspective, we will sign off at this time, but certainly be available if we could be of further assistance. Subjective This morning the patient continues to endorse some pain, primarily incisional site and visceral pain. Patient also endorses some constipation and has not had a bowel movement since being put on NPO prior to his surgery. He has been up and ambulating, though, which should help stimulate bowel movement (helps prevent DVT). Does not endorse any N/V and has been tolerating the progression of his diet from clear liquids to [id number] Consistent. Patient without any headaches, vision changes, chest pain, or numbness or tingl ing anywhere that would be of additional concern in the context of elevated BP's. Review of Systems Constitutional: no fever, no chills and no weakness Eyes: no worsening vision Respiratory: no cough and no dyspnea Cardiovascular: no chest pain, no dyspnea and no palpitations Gastrointestinal: + abdominal pain, + bloating and + const ipation; no nausea and no vomiting Genitourinary: no dysuria or no urinary frequency Neurologic: no tingling, no numbness and no headache(s) Physical Exam 2 Constitutional: WD/WN, vitals as above healthy appearing, cooperative, comfortable and + overweight; no acute distress Respiratory: normal respiratory effort, lungs clear to auscultation Cardiovascular: RRR, no murmur, no edema Extremities: normal capillary refill; no calf tenderness and no pedal edema Gastrointestinal (Abdomen): Inspection/Auscultation: normal bowel sounds and + abdominal wall ecchymosis Percussion/Palpation: + abdomen tender and abdomen soft; no hepatosplenomegaly Psychiatric: A+Ox3, euthymic affect Genitourinary: + CVA tenderness and bladder normal to i nspection Results & Data Results & Data Vital Signs (Past 12 Hours) Vital Signs Temp Pulse Pulse Resp BP Pulse Ox O2 Del Method 12/10/23 23:56 90 94 Room Air 12/10/23 23:47 36.8 C 98 H 16 143/89 H 90 Room Air 12/10/23 21:32 122 H 92 Room Air 12/10/23 21:25 36.9 C 130 H 20 117/84 92 Room Air 12/10/23 20:16 Room Air Resident Activity Tracking Resident Involvement: Resident Care Provided Care Provided: Adult Hospital Medicine
[2023-12-11 07:47] LABS: BUN Creatinine Ratio 11.4 (10-20); Calcium 8.8 mg/dl (8.6-10.3); Creatinine Clr Calc Pharmacy 59.2 ml/min; Est GFR (African American) 47.5 ml/min; Potassium 3.9 mmol/L (3.5-5.1)
[2023-12-11 08:18] LABS: ALC (manual) 8.71 K/uL (1.2-3.4); ANC (manual) 5.02 K/uL (1.4-6.5); Lymphocytes % (manual) 42 %; Monocytes # (manual) 1.03 K/uL (0.11-0.59); Monocytes % (manual) 7 %; Neutrophils # (manual) 5.02 K/uL (1.40-6.50); Neutrophils % (manual) 34 %; Reactive Lymphocytes # (manual) 2.51 K/uL; Reactive Lymphocytes % (manual) 17 %
[2023-12-11] MEDS: POLYETHYLENE (MIRALAX) 17 GM PACK PO SCH (12:07)
--- NOTE | 2023-12-11 12:17 | Urology Progress Note ---
Date of Service December 11, 2023 Assessment & Plan (1) Renal cell cancer: (2) Hypertension: (3) Prediabetes: Plan Patient postop day 2 status post left hand-assisted radical nephrectomy for large renal mass positive for RCC. Patient had been recovering. Has been slowly increasing activity. Has been dealing with abdominal distention and discomfort. Has had some pain in the abdomen. Has not started passing gas and has yet to have bowel movement. Patient has been moderately hypertensive since the procedure. Had hospitalist to evaluate patient. Has history of prediabetes as well as new diagnosis of CLL. During workup for CLL had found large renal mass which was positive for RCC on biopsy. Patient completed postoperative short course of cefepime due to low-grade fever on postop day 0. Labs have all been monitored. Most recent white count came back at 14.77. Creatinine came back at 1.85. Will continue to monitor into this afternoon. Possible discharge this afternoon if patient continues to improve and no signs of persistent fever. Admission and Anticipated Discharge Date Admission Date: December 09, 2023 Subjective Postop from urologic surgery. Patient has been tolerating well, but is having some pain and discomfort. Incisions have been mild sore. Distension of abdomen/bloating. Having some abdominal distension/gas pains. Catheter was removed yesterday. Patient been voiding without issues. Has not passed gas or had bowel movements. Has not had severe pain or uncontrollable pain. Patient has been ambulating. Has not had bowel movement or major change. No new nausea or vomiting. Had tolerated anesthesia without major problems Tolerated diet postoperatively. Has been slowly advancing. Review of Systems Review of Systems: All systems reviewed & are unremarkable except as noted in HPI & below Physical Exam Physical Exam: General: Alert in no acute distress. HEENT: Normocephalic Atraumatic. Inspection normal. Cranial Nerves 2-12 Grossly intact. Normal inspection of face. Normal inspection of neck. Psychologic: Normal affect. Respiratory: Nonlabored. No use of accessory muscles. No tachypnea or dyspnea. Cardiovascular: No tachycardia Skin: Hough and Dry. No rashes or visible lesions. Extremities/Lymphatics: No edema Abdomen: Appropriately tender. Mild distended. No rebound or guarding. Wound: Clean, dry, covered. Bandages removed today. No issues Results & Data Vital Signs (Past 12 Hours) Vital Signs Temp Pulse Resp BP Pulse Ox O2 Del Method 12/11/23 07:36 36.7 C 95 H 16 151/99 H 94 Room Air PG Care Time/CCT Total # of Minutes Spent Total Time Spent with Patient: Total time spent is greater than 50% in coordination of care (as documented) at patient's floor/unit and/or counseling patient: Coding Level of Care Code None Diagnoses Renal cell cancer C64.9 Hypertension I10 Prediabetes R73.03
[2023-12-11 14:53] VITALS: BP 126/87; PULSE 106; TEMP 98.2
--- NOTE | 2023-12-11 15:07 | Pharmacy Report ---
Pharmacy Glycemic Short Note 2 - Date of Service December 11, 2023 - Glycemic Short BSG Results (Last 24 hours): 12/10/23 12/10/23 12/10/23 16:36 21:26 22:20 Glucose 156 H POC Glucose 128 H 148 H 12/11/23 12/11/23 12/11/23 06:11 07:38 11:38 Glucose 120 H POC Glucose 119 H 132 H OUTPATIENT ANTIDIABETIC REGIMEN: * Metformin 500 mg BID * A1C: 6.5% (11/22/2023) ASSESSMENT: 12/11/23: * Patient received 7 units of bolus but no basal insulin yesterday. * BSGs yesterday were well controlled [phone] mg/dl. Fasting BSG today was 119 mg/dl. * Will continue with no basal insulin and same Novolog parameters as yesterday. 12/09/23: * Yevgeniy is a 53 YO M admitted for a nephrectomy and with a history of T2DM. Pharmacy has been consulted to assist with glycemic management while inpatient. * Patient received 4 mg IV of dexamethasone pre-operatively, BSG was 129 pre- operatively, and BSG was 148 post-operatively. A one time order of Lantus was ordered in order to reduce risk of steroid induced hyperglycemia. Will continue to monitor BSG and assess need for basal insulin. * Novolog was initiated at a weight based stress of 2 (using adjusted body weigh t). Will continue to assess and adjust as necessary. PLAN FOR INPATIENT GLYCEMIC CONTROL: * Hold outpatient oral diabetes medications * Basal insulin * None * Bolus insulin * NovoLog per scale ACHS or Q6hrs while NPO * Goal Range: Low 110 mg/dL - High 140 mg/dL * Correction Factor: 25 mg/dL/unit * Nutritional / Prandial insulin per carb ratio of 1 unit per 9 grams CHO consumed
--- NOTE | 2023-12-11 17:55 | Billing Data ---
Date of Service December 11, 2023 Coding Level of Care Code 63206 SUB INP/OBS CARE 05/12MIN
--- NOTE | 2023-12-13 00:57 | Discharge Summary ---
Date of Service December 13, 2023 Admission HPI Per Admitting Provider See H&P Admission Exam Per Admitting Provider See H&P Principal Diagnosis Renal Cell Carcinoma Discharge Exam General: Alert in no acute distress. HEENT: Normocephalic Atraumatic. Inspection normal. Cranial Nerves 2-12 Grossly intact. Normal inspection of face. Normal inspection of neck. Psychologic: Normal affect. Respiratory: Nonlabored. No use of accessory muscles. No tachypnea or dyspnea. Cardiovascular: No tachycardia Skin: [place] and Dry. No rashes or visible lesions. Extremities/Lymphatics: No edema Abdomen: Appropriately tender. Mild distended. No rebound or guarding. Wound: Clean, dry, covered. Bandages removed today. No issues Discharge Data Allergies Allergy/AdvReac Type Severity Reaction Status Date / Time Iodinated Contrast Media Allergy Intermediate Skin Verified 12/02/23 10:10 redness Consultations 12/10/23 12:02 Consult Hospitalist Routine Procedures Performed Operation Date: 12/09/23 07:15 Actual Procedures p Hand Assisted Laparoscopic Nephrectomy, Left - Extensive Lysis of Adhesions (Left) - Norris Byers, Hospital Course (1) Renal cell cancer: (2) Hypertension: (3) Prediabetes: Plan Patient postop day 2 status post left hand-assisted radical nephrectomy for large renal mass positive for RCC. Patient had been recovering. Has been slowly increasing activity. Has been dealing with abdominal distention and discomfort. Has had some pain in the abdomen. Has not started passing gas and has yet to have bowel movement. Patient has been moderately hypertensive since the procedure. Had hospitalist to evaluate patient. Has history of prediabetes as well as new diagnosis of CLL. During workup for CLL had found large renal mass which was positive for RCC on biopsy. Patient completed postoperative short course of cefepime due to low-grade fever on postop day 0. Labs have all been monitored. Most recent white count came back at 14.77. Creatinine came back at 1.85. Will continue to monitor into this afternoon. Possible discharge this afternoon if patient continues to improve and no signs of persistent fever. Total Time Total Time Spent Total Time Spent (In Minutes): 10 minutes Total Time Includes: Examination of the Patient, Discharge Planning, Medication Reconciliation and Communication With Other Providers Discharge Plan Discharge Items Patient Disposition: Home - Self-Care Reason For Visit: Renal Mass Discharge Diagnosis: Renal Cell Carcinoma Activity: Per Instructions section Activity Comment: No heavy lifting. Increase activity slowly. No more than 25lb over next few Lifting: No more than 25 pounds, No more than 50 pounds and Wait until after follow-up appointment Bathing Comment: Okay to shower. No soaking, baths, or hot tubs. Sexual Activity: Wait until after follow-up appointment Exercise/Sports: Wait until after follow-up appointment Non-emergency contact: [employer] and Urologist Call non-emergency contact if: you have any medication questions, your symptoms worsen, your pain is not controlled, your pain is worsening, your pain is unusual for you, your pain is concerning for you, you have a fever, your temperature is above 101.5, your wound has increased redness, your wound has increased drainage and your wound pain has increased Follow-up/Referrals: Marylou Nazario DO [Primary Care Provider] - Diet: Regular Addtl Attending Provider Instructions: Please take all medications as prescribed and keep follow-ups as scheduled. Trisha andrade call our office at [phone] with any questions, concerns or need to reschedule appointments for any reason. We are happy to assist you. Okay to wash with warm soapy water and a fresh washcloth twice a day with mild bar soap (Dove, Dial, etc.) No soaking or baths. If you have any question regarding this, please call our office. Please do not drive, drink alcohol or operate machinery while taking prescription pain medication. We recommend continuing a stool softener (i.e. Colace) to prevent constipation/straining for at least two weeks after your procedure. Some blood is to be expected in your urine as you heal, you may even see blood in your urine after your procedure. Drink plenty of fluids, avoid sexual or strenuous exercise and do not lift >25 pounds until your follow-up. Call [facility] at [phone] promptly if you experience: Fever of 101F or greater Pain thats not controlled with medicine Trouble urinating or inability to urinate Dark, bloody urine for more than 12 hours Pending Studies at Discharge: No Stand-Alone Forms: My Pinshape, Smoking Cessation Medications and DC Order Prescriptions: New Colace Clear 50 mg capsule 50 mg PO BID PRN (Reason: constipation) Qty: 30 2RF oxycodone-acetaminophen [Percocet] 7.5-325 mg tablet 1 tab PO Q8H PRN (Reason: pain) Qty: 12 0RF Continued metformin 500 mg tablet 500 mg PO BID Qty: 60 5RF hydrochlorothiazide 12.5 mg tablet 12.5 mg PO QAM Qty: 90 1RF losartan 50 mg tablet 50 mg PO QAM Qty: 90 1RF triamcinolone acetonide [Nasacort] 55 mcg aerosol,spray 2 sprays INTNAS QAM cyanocobalamin (vitamin B-12) [Vitamin B-12] 1,000 mcg Tablet 1,000 mcg PO QAM magnesium 250 mg Tablet 250 mg PO QAM omega-3 fatty acids Capsule 1,000 mg PO QAM vitamin D3-vitamin K2 250 mcg (10,000 unit)-45 mcg Capsule 1 cap PO QAM Discharge Orders: Discharge Order (Routine); Ordered 12/11/23 Ordered By: Norris Byers Admission Data Admit Date/Time: 12/09/23 09:40 Attending Provider: Norris Byers Admit Provider: Norris Byers Primary Care Provider: Marylou Nazario Other Providers: Doe Callaway; Marley Ac; Ho Bloom; Zoltan Benavidez; Arturo Padron; Kirill Zhu; Jacquelyn Koroma; Tia Romero; Vi Bradley; Iza White; Binh Bhakta; Roldan Holland; Rachel Fontana; Damir Morris; Ho Weber; Semaj [place]; Amaris Leon; Amalia Carrasquillo; Amalai Smith; Rukhsana Jules; Allegra Araujo; Dario Navarro; Andrae Shin; Samia Vásquez; Wilfred Chilel; Raffaele Spann; Ruthie Whitaker; Aida Choudhary; Dennis Galeas Ishraque R.; Zoltan Benson; Arturo George; Malena Murray; Leona Wayne; Genevieve Le; Yevgeniy Solomon Other Interventions: Discharge Summary Assessment (RN) Last Done: 12/11/23 16:45 Coding Level of Care Code 16209 IN/OBS DISCH 30 MIN/LESS Diagnoses Renal cell cancer C64.9 Hypertension I10 Prediabetes R73.03
--- NOTE | 2023-12-14 15:41 | Electrocardiogram Report ---
Test Reason : Blood Pressure : */* mmHG Vent. Rate : 105 BPM Atrial Rate : 105 BPM P-R Int : 170 ms QRS Dur : 80 ms QT Int : 314 ms P-R-T Axes : 62 35 49 degrees QTcB Int : 415 ms Sinus tachycardia Nonspecific ST abnormality Abnormal ECG When compared with ECG of 01-Dec-2023 13:43, No significant change was found Confirmed by Bhargavi Floyd (Chandler) on 12/11/2023 6:56:53 PM Referred By: Norris Byers Confirmed By: Bhargavi Floyd
== END 2023-12-11 17:45 | disposition home or self-care (01) ==
LOC: ASU 05:12 → INTOOBSV 09:40 → 3E 09:40

== ENCOUNTER 2024-02-21 10:03 | Inpatient (IN) ==
--- NOTE | 2024-02-21 10:28 | History & Physical Report ---
Date of Service February 21, 2024 Assessment & Plan (1) Medication adverse effect: Plan: patient was a direct admit from cancer center due to immunotherapy adverse effect of ipilimumab/nivolumab currently undergoing treatment for metastatic renal cell carcinoma to lung, history of renal cell carcinoma and CLL - Patient with recorded elevated temperatures at home; fluctuating since 02/16 between 103-104F - associated nausea, cough, and muscle aches with elevated temperature - completed 1 cycle of ipilimumab/nivolumab 02/17/24 - sent from cancer center by Dr. Judge; consulted - associated thrombocytopenia - acute hepatic panel in AM - Recommended 1G IV Solu-Medrol daily - Zofran and home Percocet as needed - continue to promote oral hydration (2) Transaminitis: Plan: New onset transaminitis; no RUQ pain Acetaminophen toxicity vs immunotherapy adverse effect - AST 81, ALT 113, Alk phos 105 - acetaminophen level and CK negative - Discontinue Tylenol at this time - trend daily CMP - anaplasmosis panel with AM labs (3) Fever: Plan: Elevation of temperature since Tuesday, with mild cough and muscle aches since Tuesday - UA and CXR negative - BioFire negative - hold Tylenol at this time given transaminitis (4) Hyponatremia: Plan: likely secondary to immunotherapy Patient with NA of 132 - asymptomatic - promote oral hydration - daily BMP (5) Metastatic renal cell carcinoma to lung: Plan: Recent wedge resection x 2 of RLL and RML back confirmed metastatic renal cell carcinoma - undergoing treatment for stage IV disease with ipilimumab and nivolumab IV Q21 days x4 cycles followed by 2 years of immunotherapy with nivolumab - received cycle 1 on 02/17/24 - to undergo radiation therapy with Dr. Soria - follows with Dr. Judge out patient; consulted (6) Renal cell cancer: Plan: renal cell carcinoma, s/p left nephrectomy on 12/09/2023 undergoing treatment for metastasis to lungs - Renal function at baseline - Continue with daily BMP (7) CLL (chronic lymphocytic leukemia): Plan: stable, under observation at this time (8) Chronic kidney disease with active medical management without dialysis, stage 3 (moderate): Plan: follows with Dr. Palacio, nephrology, out patient - renal function at baseline - promote oral hydration if able to tolerate - Avoid nephrotoxic agents - daily BMP (9) T2DM (type 2 diabetes mellitus): Plan: type II DM on Jardiance and metformin at home; held on admission - Most recent A1C 6.5% - SSI with target BSG range 110-140mg/dL, CF 25, carb ratio 9 - Lantus scale SQ BID (BSG < 150 give 0 units; BSG 150-180 give 7 units; BSG > 180 give 15 units) - T2DM diet - primacy glycemic consult given 1000 mg Solu-Medrol Plan Chronic stable diagnoses: B12 deficiency - patient no longer takes home supplement HTN - continue losartan VTE ppx: SCDs Diet: DM diet Code status: Full Dispo: Med surg with Tele Admission and Anticipated Discharge Date Admission Date: 02/21/24 History of Present Illness Chief Complaint: Chemotherapy side effect Primary Care Provider: Marylou Nazario DO Patient is a 53-year-old male with a past medical history of renal cell carcinoma s/p left nephrectomy 12/09/23, CLL, type 2 diabetes mellitus, hy pertension, hyperlipidemia. He presents today due to an adverse reaction to his recent start of immunotherapy on 02/16. He stated that immediately after the first dose he had a fever of 103-104; he was then given steroids and began to feel better by Tuesday. Tuesday evening his temp leonardo mildly. Tuesday he went to see the cancer center in which he received fluids, chest x-ray, and blood work. Last evening his temp leonardo back up to 104 F, he had a headache, muscle aches, back spasms, and felt imbalanced. He went to the cancer center this morning who then referred him for direct right outpatient for 1000 mg Solu- Medrol daily. He took Tylenol at home to help with the fever, with little relief. He took an Aleve last night which did help but he is not to take NSAIDs with his CKD history. He is on day 4 of his Medrol taper pack. He has had a mild cough since Tuesday with no sputum production. He states he occasionally feels nauseous when the fever spikes, no vomiting. He also has dyspnea when the fever spikes, currently denies dyspnea and chest pain. Patient denies chills, dizziness, lightheadedness, rhinorrhea, sore throat, sputum production,dyspnea on exertion, chest pain, abdominal pain, nausea, vomiting, diarrhea, constipation, numbness, tingling. He does not smoke or use illicit drugs. He drinks about 1 beer a week. He denies previous VTE or clotting disorders, no history of COPD or asthma. He does not use oxygen at baseline. He took his home medications this morning, he stated he does not take his supplements anymore. He wishes to be full code at this time. The patient was discussed with Dr. Weber at the time of the admission/consult. Allergies Allergy/AdvReac Type Severity Reaction Status Date / Time Iodinated Contrast Media Allergy Intermediate Skin Verified 02/08/24 13:29 redness Home Medications Medication Instructions Recorded Confirmed Type triamcinolone acetonide 55 mcg 2 sprays intranasal QAM 03/06/19 02/21/24 History nasal spray aerosol (Nasacort) metformin 500 mg tablet 500 mg PO BID #60 tabs 09/23/23 02/21/24 Rx losartan 50 mg tablet 50 mg PO QAM #90 tabs 10/06/23 02/21/24 Rx docusate sodium 50 mg capsule 50 mg PO BID PRN constipation #30 12/11/23 02/21/24 Rx (Colace Clear) caps oxycodone-acetaminophen 7.5 mg-325 1 tab PO Q8H PRN pain #12 tabs 12/11/23 02/21/24 Rx mg tablet (Percocet) empagliflozin 10 mg tablet 10 mg PO DAILY #90 tabs 12/22/23 02/21/24 Rx (Jardiance) Past Med/Surg History Problem List (Updated 02/21/24 @ 17:13 by Susan Judge MD) Thrombocytopenia Fever Hyponatremia Transaminitis Medication adverse effect T2DM (type 2 diabetes mellitus) Metastatic renal cell carcinoma to lung (Chronic) Nodule of right lung Chronic kidney disease with active medical management without dialysis, stage 3 (moderate) S/p nephrectomy CLL (chronic lymphocytic leukemia) Postoperative hypertension Renal cell cancer Hypertension Hyperlipidemia Medical History Renal cell cancer Hypertension Prediabetes Hyperlipidemia History of COVID-19 Dx 10/2020: mild, no symptoms Surgical History S/P partial lobectomy of lung (~01/20/24) RLL medial lobe wedge resection (pathology noting metastatic renal cell carcinoma) History of tooth extraction History of wisdom tooth extraction S/P arthroscopic knee surgery (2010) Right Family History Mother , 84yo Diabetes Heart disease Breast cancer Hypertension Father Diabetes Brother No problems noted. Sister No problems noted. Sister No problems noted. Son No problems noted. Other No family history of adverse response to anesthesia Denies family history of Ovarian cancer Prostate cancer Myocardial infarction Colorectal cancer Social History Smoking Status: Never smoker Tobacco Type: Smokeless Tobacco (Dip or Chew) Cigarettes Per Day: 1/4 can per day; Second Hand Exposure: No; Do You Dip or Chew Tobacco: Yes; Hx Alcohol Use: Yes Alcohol type: beer Hx Substance Use: No Preferred Language: Finnish Communication Ability: Effective Visual Impairment: No Limitations Hearing Ability: Normal Manager [employer] Required: No Beliefs That Will Affect Care: None marital status: Single marital status details: Lives with Pauline. 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 [employer] How many Children do You have: 3 Other Information That Helps Us Care for You: No Feels Safe at Home: Yes Safety Concerns: Feels Safe At This Time Childhood Exposure to Second-Hand Smoke: Yes Diet: regular Diet Comment: regular caffeine: Yes (Soda x 2 per day Coffee x 2 per day.) during the past year weight has: remained stable Dental Care, Regularly: Yes Physical Activity Frequency: Daily Seatbelt Use: always Sunscreen Use: Yes Review of Systems Review of Systems: See HPI Physical Exam Physical Exam: The patient is awake, alert and oriented 3, well developed and well nourished, normocephalic and atraumatic, in no acute distress. Non-toxic appearing. HEENT- EOMI, mucous membranes moist. Hearing grossly intact. Heart-normal S1 and S2. No murmurs, rubs or gallops. Lungs-clear bilaterally, no respiratory distress, no accessory muscle use. Abdomen-normal bowel sounds and soft. No ascites noted. Non-tender. Extremities- no clubbing, cyanosis, or edema. Rheumatologic-normal range of motion. Psychiatric-normal affect. Code Status & VTE Plan Code Status Full VTE Prophylaxis Plan VTE Prophylaxis will be ordered: Yes Supervising Physician Co-Signing Physician Notes I personally saw and examined the patient. I independently reviewed the labs, EKG, imaging, problem list, medication list, past medical history and family history. I verified all duncan points and agree with Allegra Araujo PA-C with the following exceptions and/or additions: 53 year old with fever, chills rash, joint pains and headache. Currently on immunotherapy and suspected to be a side effect of this per Dr Judge. O/E HS RRR, no murmurs, Chest CTAB, Abdo SNT A/P Immunotherapy reaction - 1g Solu-medrol IV daily as recommended by heme/onc, alternative etiology such as bacterial or anaplasmosis infection with smear negative appears much more unlikely at this stage however PCR pending. Procalcitonin taken to trend if patient not improving with steroids could consider blood cultures. PG Care Time/CCT Total # of Minutes Spent Total Time Spent with Patient: Total time spent is greater than 50% in coordination of care (as documented) at patient's floor/unit and/or counseling patient: Coding Level of Care Code None Diagnoses Medication adverse effect T50.905A Transaminitis R74.01 Fever R50.9 Hyponatremia E87.1 Metastatic renal cell carcinoma to lung C78.00; C64.9 Renal cell cancer C64.9 CLL (chronic lymphocytic leukemia) C91.10 Chronic kidney disease with active medical management without dialysis, stage 3 (moderate) N18.30 T2DM (type 2 diabetes mellitus) E11.9
[2024-02-21] MEDS ORDERED: ONDANSETRON INJ 2 MG/ML 2 ML VIAL IV PRN (11:10)
[2024-02-21] MEDS ORDERED: methylPREDNISolone 10 mg/mL (For Ped Dose < 7mg) IV SCH (11:15)
--- NOTE | 2024-02-21 11:18 | Oncology Consultation ---
Date of Consultation February 21, 2024 Assessment & Plan (1) Fever: (2) Transaminitis: (3) Metastatic renal cell carcinoma to lung: (4) Chronic kidney disease with active medical management without dialysis, stage 3 (moderate): (5) S/p nephrectomy: (6) CLL (chronic lymphocytic leukemia): (7) Thrombocytopenia: Plan -Symptoms including persistent fever, joint pain, headaches, generalized erythematous rash most likely due to combination immunotherapy treatment with ipilimumab/nivolumab. -Labs show transaminitis most likely also due to immunotherapy treatment before which would recommend obtaining Acute hepatitis panel. He also has sudden onset and thrombocytopenia which I suspect might be a presentation of ITP due to significant reaction to immunotherapy. -Recommend methylprednisolone 1 g IV daily. If thrombocytopenia does not improve over the next 24 hours with high-dose steroids, would recommend consideration for IVIG daily x 2 doses. Thank you for this consult. Hematology continue following patient while in the hospital. Please feel free to call if you have any further questions. History of Present Illness Reason for Consultation: Side effects to immunotherapy Attending Physician: Susan Judge MD History of Present Illness Mr. Medeiros is a pleasant 53-year-old gentleman with history of stage IV renal cell carcinoma for which he is s/p cycle 1 of immunotherapy with ipilimumab/nivolumab on 02/17/2024. Shortly after receiving immunotherapy treatment, he developed significant side effects including persistent fever, rigors, joint pain and cough with temperature as high as 103. He required Tylenol every 4 hours but despite this, temperature spikes persisted and so he was started on Medrol Dosepak on 02/18/2024 and also recommended occasional NSAID use. Symptoms initially improved with Medrol Dosepak however yesterday, he developed headaches, back pain, recurrent fever necessitating direct admission today. Labs on admission significant for thrombocytopenia platelet count of 52,000, renal function stable with creatinine of 1.67 and BUN of 23. LFTs significant for elevated total bilirubin of 1.1, AST of 81, ALT 113, alkaline phosphatase of 105. Workup for infection including respiratory panel was negative. Chest x-ray obtained yesterday also negative. Urinalysis also on 02/20/2024 was negative for infection. Allergies Allergy/AdvReac Type Severity Reaction Status Date / Time Iodinated Contrast Media Allergy Intermediate Skin Verified 02/08/24 13:29 redness Home Medications Medication Instructions Recorded Confirmed Type triamcinolone acetonide 55 mcg 2 sprays intranasal QAM 03/06/19 02/21/24 History nasal spray aerosol (Nasacort) metformin 500 mg tablet 500 mg PO BID #60 tabs 09/23/23 02/21/24 Rx losartan 50 mg tablet 50 mg PO QAM #90 tabs 10/06/23 02/21/24 Rx docusate sodium 50 mg capsule 50 mg PO BID PRN constipation #30 12/11/23 02/21/24 Rx (Colace Clear) caps oxycodone-acetaminophen 7.5 mg-325 1 tab PO Q8H PRN pain #12 tabs 12/11/23 02/21/24 Rx mg tablet (Percocet) empagliflozin 10 mg tablet 10 mg PO DAILY #90 tabs 12/22/23 02/21/24 Rx (Jardiance) Patient History Medical History Renal cell cancer Hypertension Prediabetes Hyperlipidemia History of COVID-19 Dx 10/2020: mild, no symptoms Surgical History S/P partial lobectomy of lung (~01/20/24) RLL medial lobe wedge resection (pathology noting metastatic renal cell carcinoma) History of tooth extraction History of wisdom tooth extraction S/P arthroscopic knee surgery (2010) Right Family History Mother , 84yo Diabetes Heart disease Breast cancer Hypertension Father Diabetes Brother No problems noted. Sister No problems noted. Sister No problems noted. Son No problems noted. Other No family history of adverse response to anesthesia Denies family history of Ovarian cancer Prostate cancer Myocardial infarction Colorectal cancer Social History Smoking Status: Never smoker Tobacco Type: Smokeless Tobacco (Dip or Chew) Cigarettes Per Day: 1/4 can per day; Second Hand Exposure: No; Do You Dip or Chew Tobacco: Yes; Hx Alcohol Use: Yes Alcohol type: beer Hx Substance Use: No Preferred Language: Panamanian Communication Ability: Effective Visual Impairment: No Limitations Hearing Ability: Normal [place] Required: No Beliefs That Will Affect Care: None marital status: Single marital status details: Lives with Pauline. 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
[2024-02-21] MEDS: Patient's HEIGHT &/or WEIGHT Needed SCH (11:28)
[2024-02-21] MEDS ORDERED: ACETAMINOPHEN 325 MG TAB PO PRN (11:28)
[2024-02-21] MEDS: methylPREDNISolone 1,000 MG in DEXTROSE 5% 250 ML IV SCH (11:34)
[2024-02-21] MEDS ORDERED: oxyCODONE/APAP 7.5/325MG TAB PO PRN (11:36)
[2024-02-21] MEDS ORDERED: DOCUSATE SODIUM 50 MG PO PRN (11:36)
[2024-02-21] MEDS ORDERED: DEXTROSE 50% 50 ML SYRINGE IV PRN (11:37)
[2024-02-21] MEDS ORDERED: GLUCOSE 40% GEL 15 GM TUBE PO PRN (11:37)
[2024-02-21] MEDS ORDERED: GLUCOSE 10 TAB/TUBE PO PRN (11:37)
[2024-02-21] MEDS ORDERED: PHARMACY GLYCEMIC MGMT CONSULT PRN (11:37)
[2024-02-21] MEDS ORDERED: GLUCAGON FOR INJ 1 MG VIAL SQ PRN (11:37)
[2024-02-21] MEDS ORDERED: CARBOHYDRATES FOR HYPOGLYCEMIA PO PRN (11:37)
[2024-02-21 11:48] LABS: Albumin Globulin Ratio 1.5 (0.9-2); Albumin Level 3.9 gm/dl (3.4-5.0); BUN Creatinine Ratio 13.8 (10-20); Bilirubin,Total 1.1 mg/dl (0.2-1.0); Creatinine Clr Calc Pharmacy 64.4 ml/min; Globulin 2.6 gm/dl (2.5-4.0); Potassium 4.1 mmol/L (3.5-5.1); Total Protein 6.5 gm/dl (6.0-8.3)
[2024-02-21 12:13] LABS: Hematocrit (blood only) 41.5 % (42.0-52.0); Hemoglobin 14.2 g/dl (14.0-18.0); Mean Corpuscular Hemoglobin 28.3 pg (25.0-34.0); Mean Corpuscular Hgb Conc 34.2 g/dL (32.0-36.0); Mean Corpuscular Volume 82.7 fL (80.0-100.0); Mean Platelet Volume 11.6 fL (9.4-12.4); Platelet Count 52 K/uL (130-400); RDW Coefficient of Variation 13.3 % (11.5-14.5); RDW Standard Deviation 39.9 fL (36.4-46.3); Red Blood Count 5.02 M/uL (4.70-6.10); White Blood Count 8.79 K/ul (4.8-10.8)
[2024-02-21 12:41] LABS: ALC (manual) 4.75 K/uL (1.2-3.4); ANC (manual) 3.52 K/uL (1.4-6.5); Lymphocytes % (manual) 25 %; Metamyelocytes # (manual) 0.18 K/uL (0-0); Metamyelocytes % (manual) 2 %; Monocytes # (manual) 0.35 K/uL (0.11-0.59); Monocytes % (manual) 4 %; Neutrophils # (manual) 3.52 K/uL (1.40-6.50); Neutrophils % (manual) 40 %; Reactive Lymphocytes # (manual) 2.55 K/uL; Reactive Lymphocytes % (manual) 29 %
[2024-02-21] MEDS: INSULIN ASPART PER UNIT CHARGE SC SCH (12:52)
[2024-02-21] MEDS ORDERED: LANTUS PER UNIT CHARGE SQ ONE (13:00)
--- NOTE | 2024-02-21 14:44 | Pharmacy Report ---
Pharmacy Glycemic Short Note 2 - Date of Service February 21, 2024 - Glycemic Short BSG Results (Last 24 hours): 02/21/24 11:17 Glucose 125 H OUTPATIENT ANTIDIABETIC REGIMEN: * Jardiance 10mg po daily * Metformin 500mg po BID HbA1c 6.5% on 11/22/23 (new level ordered for 02/21 with AM labs) ASSESSMENT: * 53 year old male was a direct admit from the cancer center on 02/20 due to a presumed adverse drug reaction to ipilimumab/nivolumab in which he is receiving for metastatic renal cell carcinoma. (s/p left nephrectomy in November 2023). Patient also reports being febrile with associated nausea, cough, and muscle aches. * Hem/Onc consulted and recommended starting methylprednisolone 1gm iv daily. * He is a type 2 diabetic who is well controlled on oral agents as an outpatient and pharmacy has been consulted for glycemic management while he is admitted. * BSG on admit was 125mg/dL and then the methylprednisolone was started. Based on discussion with hospitalist, it was decided to start a Lantus scale (0,7,or 15 units depending on BSG) this evening and then BID. * Bolus insulin scale initiated using weight based dosing (using adjusted body weight) with a stress of 2. PLAN FOR INPATIENT GLYCEMIC CONTROL: * Hold outpatient oral diabetes medications * Basal insulin * Lantus scale SQ BID (BSG < 150 give 0 units; BSG 150-180 give 7 units; BSG > 180 give 15 units) * Bolus insulin * NovoLog per scale ACHS or Q6hrs while NPO * Goal Range: Low 110 mg/dL - High 140 mg/dL * Correction Factor: 25 mg/dL/unit * Nutritional / Prandial insulin per carb ratio of 1 unit per 9 grams CHO consumed.
[2024-02-21 15:35] LABS: Adenovirus PCR Not Detected (NotDetected); Bordetella parapertussis PCR Not Detected (NotDetected); Bordetella pertussis PCR Not Detected (NotDetected); Chlamydia pneumoniae PCR Not Detected (NotDetected); Coronavirus 229E PCR Not Detected (NotDetected); Coronavirus CoV-2 (COVID19)PCR Not Detected (NotDetected); Coronavirus HKU1 PCR Not Detected (NotDetected); Coronavirus NL63 PCR Not Detected (NotDetected); Coronavirus OC43PCR Not Detected (NotDetected); Human Metapneumovirus PCR Not Detected (NotDetected); Influenza A PCR Not Detected (NotDetected); Influenza B PCR Not Detected (NotDetected); Mycoplasma pneumoniae PCR Not Detected (NotDetected); Parainfluenza Virus 1 PCR Not Detected (NotDetected); Parainfluenza Virus 2 PCR Not Detected (NotDetected); Parainfluenza Virus 3 PCR Not Detected (NotDetected); Parainfluenza Virus 4 PCR Not Detected (NotDetected); Respiratory Syncytial VirusPCR Not Detected (NotDetected); Rhinovirus/Enterovirus PCR Not Detected (NotDetected)
--- NOTE | 2024-02-21 16:11 | Electrocardiogram Report ---
Test Reason : Blood Pressure : */* mmHG Vent. Rate : 82 BPM Atrial Rate : 82 BPM P-R Int : 162 ms QRS Dur : 86 ms QT Int : 358 ms P-R-T Axes : 37 24 38 degrees QTcB Int : 418 ms Normal sinus rhythm Normal ECG When compared with ECG of 10-Dec-2023 22:30, No significant change was found Confirmed by Duglas Harris ([id number]) on 02/21/2024 4:11:31 PM Referred By: Susan Judge Confirmed By: Duglas Harris
[2024-02-21 18:29] LABS: Procalcitonin 0.69 ng/ml (0-0.5)
[2024-02-21 18:54] LABS: Lyme Screen Rflx Confirmation Negative (Negative)
[2024-02-21 18:55] LABS: Hep B Surface Ag with confirm Negative (Negative)
[2024-02-21 19:00] LABS: Hep C Ab Rflx HepCQuant RNA Negative (Negative)
[2024-02-21] MEDS: LANTUS PER UNIT CHARGE SC SCH (20:58)
[2024-02-22 06:45] LABS: Hematocrit (blood only) 41.4 % (42.0-52.0); Hemoglobin 14.2 g/dl (14.0-18.0); Mean Corpuscular Hemoglobin 28.5 pg (25.0-34.0); Mean Corpuscular Hgb Conc 34.3 g/dL (32.0-36.0); Mean Corpuscular Volume 83.1 fL (80.0-100.0); Mean Platelet Volume 12.4 fL (9.4-12.4); Platelet Count 63 K/uL (130-400); RDW Coefficient of Variation 13.6 % (11.5-14.5); RDW Standard Deviation 41.3 fL (36.4-46.3); Red Blood Count 4.98 M/uL (4.70-6.10); White Blood Count 16.33 K/ul (4.8-10.8)
[2024-02-22 07:06] LABS: Partial Thromboplastin Ratio 0.9; Partial Thromboplastin Time 25 Seconds (21-31); Prothrombin Time 10.9 Seconds (9.0-12.0)
[2024-02-22 07:08] LABS: Albumin Globulin Ratio 1.4 (0.9-2); Albumin Level 3.9 gm/dl (3.4-5.0); BUN Creatinine Ratio 19.9 (10-20); Bilirubin,Total 0.6 mg/dl (0.2-1.0); Calcium 9.3 mg/dl (8.6-10.3); Creatinine Clr Calc Pharmacy 71.3 ml/min; Globulin 2.7 gm/dl (2.5-4.0); Potassium 4.4 mmol/L (3.5-5.1); Total Protein 6.6 gm/dl (6.0-8.3)
[2024-02-22 07:25] LABS: ALC (manual) 10.94 K/uL (1.2-3.4); ANC (manual) 4.74 K/uL (1.4-6.5); Lymphocytes # (manual) 4.08 K/uL (1.2-3.4); Lymphocytes % (manual) 25 %; Metamyelocytes # (manual) 0.16 K/uL (0-0); Metamyelocytes % (manual) 1 %; Monocytes # (manual) 0.16 K/uL (0.11-0.59); Monocytes % (manual) 1 %; Myelocytes # (manual) 0.33 K/uL (0-0); Myelocytes % (manual) 2 %; Neutrophils # (manual) 4.74 K/uL (1.40-6.50); Neutrophils % (manual) 29 %; Reactive Lymphocytes # (manual) 6.86 K/uL; Reactive Lymphocytes % (manual) 42 %
[2024-02-22 07:26] LABS: Folate (Folic Acid),Ser orPlas 9.48 ng/ml (>5.38)
[2024-02-22 07:29] LABS: Estimated Average Glucose 137 mg/dl; Hemoglobin A1C 6.4 % (4.5-5.6)
[2024-02-22] MEDS: LOSARTAN POTASSIUM 50 MG TAB PO SCH (07:53)
--- NOTE | 2024-02-22 08:13 | Hematology/Oncology Prog Note ---
Date of Service February 22, 2024 Assessment & Plan (1) Fever: (2) Thrombocytopenia: (3) Transaminitis: (4) Medication adverse effect: (5) Metastatic renal cell carcinoma to lung: Plan -Doing a lot better on IV steroids. Clinical symptoms have significantly improved. LFTs and thrombocytopenia also improving -Continue with 1 g IV methylprednisolone x 1 more day. If labs tomorrow continues to show improvement, could consider discharging home on prednisone 1 mg/kg/day.Will plan to taper slowly over the next 4 weeks. Admission and Anticipated Discharge Date Admission Date: February 21, 2024 Subjective Appears to be doing better clinically. Fever, headaches, arthralgias and rash have resolved. Improvement in platelet count to 63,000. Also improvement in LFTs with ALT of 104, alkaline phosphatase of 105 and normal total bilirubin of 0.6. Results & Data Vital Signs (Past 12 Hours) Vital Signs Temp Pulse Pulse Resp BP Pulse Ox O2 Del Method 02/22/24 07:46 36.4 C L 73 20 144/87 H 97 Room Air 02/22/24 07:00 61 02/22/24 03:36 36.3 C L 02/22/24 02:57 64 16 136/82 98 Room Air 02/21/24 22:50 65 18 136/83 95 Room Air 02/21/24 22:02 72
[2024-02-22] MEDS ORDERED: oxyCODONE HCL IR 5 MG TAB (IMMEDIATE RELEASE) PO PRN (08:24)
--- NOTE | 2024-02-22 08:27 | Hospitalist Progress Note ---
Date of Service February 22, 2024 Assessment & Plan (1) Medication adverse effect: Plan: patient was a direct admit from cancer center due to immunotherapy adverse effect of ipilimumab/nivolumab currently undergoing treatment for metastatic renal cell carcinoma metastatic to lung, also with CLL - Patient with recorded elevated temperatures at home; fluctuating since 02/16 between 103-104F - associated nausea, cough, and muscle aches with elevated temperature - completed 1 cycle of ipilimumab/nivolumab 02/17/24 - sent from cancer center by Dr. 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 Soria - follows with Dr. Judge out patient; consulted (3) Hyponatremia: Plan: likely secondary to immunotherapy Patient with NA of 132 - asymptomatic - promote oral hydration (4) T2DM (type 2 diabetes mellitus): Plan: type II DM on Jardiance and metformin at home; held on admission - Most recent A1C 6.5% - SSI with target BSG range 110-140mg/dL, CF 25, carb ratio 9 - Lantus scale SQ BID (BSG < 150 give 0 units; BSG 150-180 give 7 units; BSG > 180 give 15 units) - T2DM diet - primacy glycemic consult given 1000 mg Solu-Medrol Plan Chronic stable diagnoses: ckd3 stable B12 deficiency - patient no longer takes home supplement HTN - continue losartan VTE ppx: SCDs Code status: Full Admission and Anticipated Discharge Date Admission Date: February 21, 2024 Subjective Appears to be doing better clinically. Fever, headaches, arthralgias and rash have resolved. Improvement in platelet count to 63,000. Improvement in LFTs Physical Exam Physical Exam: pt is in not distress tolerating steroids glucose under control Results & Data Results & Data Vital Signs (Past 12 Hours) Vital Signs Temp Pulse Pulse Resp BP Pulse Ox O2 Del Method 02/22/24 07:46 97.5 F L 73 20 144/87 H 97 Room Air 02/22/24 07:00 61 02/22/24 03:36 97.3 F L 02/22/24 02:57 64 16 136/82 98 Room Air 02/21/24 22:50 65 18 136/83 95 Room Air 02/21/24 22:02 72 Laboratory Results review cbc review chemistry review crp PG Care Time/CCT Total # of Minutes Spent Total Time Spent with Patient: Total time spent is greater than 50% in coordination of care (as documented) at patient's floor/unit and/or counseling patient: Coding Level of Care Code 55770 SUB INP/OBS CARE 2/35MIN Diagnoses Medication adverse effect T50.905A Metastatic renal cell carcinoma to lung C78.00; C64.9 Hyponatremia E87.1 T2DM (type 2 diabetes mellitus) E11.9
--- NOTE | 2024-02-22 09:35 | Billing Data ---
Date of Service February 21, 2024 Coding Level of Care Code 46796 INT INP/OBS CARE
--- NOTE | 2024-02-22 14:07 | Pharmacy Report ---
Pharmacy Glycemic Short Note 2 - Date of Service February 22, 2024 - Glycemic Short BSG Results (Last 24 hours): 02/21/24 02/21/24 02/22/24 17:26 20:46 05:40 Glucose 180 H POC Glucose 214 H 293 H 02/22/24 02/22/24 08:02 12:12 Glucose POC Glucose 171 H 179 H OUTPATIENT ANTIDIABETIC REGIMEN: * Jardiance 10mg po daily * Metformin 500mg po BID HbA1c 6.5% on 11/22/23 (new level ordered for 02/21 with AM labs) ASSESSMENT: 02/21 * Patient received total of 28 units of insulin yesterday, of which 15 units were basal insulin * Fasting BSG 180 mg/dL - still ordered solumedrol IV daily ongoing, will titrate up basal slightly more today and continue with scale based upon BSG value * BSGs yesterday in 200s, will provider tighter CF/CR to help with steroid effects 02/20 * 53 year old male was a direct admit from the cancer center on 02/20 due to a presumed adverse drug reaction to ipilimumab/nivolumab in which he is receiving for metastatic renal cell carcinoma. (s/p left nephrectomy in November 2023). Patient also reports being febrile with associated nausea, cough, and muscle aches. * Hem/Onc consulted and recommended starting methylprednisolone 1gm iv daily. * He is a type 2 diabetic who is well controlled on oral agents as an outpatient and pharmacy has been consulted for glycemic management while he is admitted. * BSG on admit was 125mg/dL and then the methylprednisolone was started. Based on discussion with hospitalist, it was decided to start a Lantus scale (0,7,or 15 units depending on BSG) this evening and then BID. * Bolus insulin scale initiated using weight based dosing (using adjusted body weight) with a stress of 2. PLAN FOR INPATIENT GLYCEMIC CONTROL: * Hold outpatient oral diabetes medications * Basal insulin * Lantus 7-10 units bid based upon BSG value * Bolus insulin * NovoLog per scale ACHS or Q6hrs while NPO * Goal Range: Low 110 mg/dL - High 140 mg/dL * Correction Factor: 20 mg/dL/unit * Nutritional / Prandial insulin per carb ratio of 1 unit per 6 grams CHO consumed.
[2024-02-23 05:48] LABS: Hemoglobin 13.9 g/dl (14.0-18.0); Mean Corpuscular Hemoglobin 28.7 pg (25.0-34.0); Mean Corpuscular Hgb Conc 34.8 g/dL (32.0-36.0); Mean Corpuscular Volume 82.6 fL (80.0-100.0); Mean Platelet Volume 11.9 fL (9.4-12.4); Platelet Count 77 K/uL (130-400); RDW Coefficient of Variation 13.6 % (11.5-14.5); RDW Standard Deviation 40.7 fL (36.4-46.3); Red Blood Count 4.84 M/uL (4.70-6.10); White Blood Count 19.31 K/ul (4.8-10.8)
[2024-02-23 06:06] LABS: Albumin Globulin Ratio 1.5 (0.9-2); Albumin Level 3.7 gm/dl (3.4-5.0); BUN Creatinine Ratio 23.4 (10-20); Bilirubin,Total 0.5 mg/dl (0.2-1.0); Calcium 9.2 mg/dl (8.6-10.3); Creatinine Clr Calc Pharmacy 69.9 ml/min; Globulin 2.5 gm/dl (2.5-4.0); Potassium 4.4 mmol/L (3.5-5.1); Total Protein 6.2 gm/dl (6.0-8.3)
[2024-02-23] MEDS: LANTUS PER UNIT CHARGE SC ONE (08:56)
[2024-02-23 11:52] VITALS: PULSE 72; RESP 18; TEMP 97.2; O2SAT 96
[2024-02-23 13:47] LABS: Hepatitis A Antibody IgM NON-REACTIVE (NON-REACTIVE); Hepatitis B Core Antibody IgM NON-REACTIVE (NON-REACTIVE)
[2024-02-23 15:02] VITALS: BP 122/74
--- NOTE | 2024-02-23 15:39 | Discharge Summary ---
Discharge Summary Date of Service February 23, 2024 Principal Dx & Hospital Course #1 = Principal Diagnosis (1) Medication adverse effect: patient was a direct admit from [facility] due to immunotherapy adverse effect of ipilimumab/nivolumab currently undergoing treatment for metastatic renal cell carcinoma metastatic to lung, also with CLL - Patient with recorded elevated temperatures at home; fluctuating since 02/16 between 103-104F - associated nausea, cough, and muscle aches with elevated temperature - completed 1 cycle of ipilimumab/nivolumab 02/17/24 - sent from [facility] by Dr. Judge; consulted immunotherapy associated inflamatory response - associated thrombocytopenia and transaminitis - acute hepatic panel ordered - completed 3 doses 1 gm prednisone, now on 80mg a day UA and CXR negative - BioFire negative - hold Tylenol at this time given transaminitis (2) Metastatic renal cell carcinoma to lung: Recent wedge resection x 2 of RLL and RML back confirmed metastatic renal cell carcinoma - undergoing treatment for stage IV disease with ipilimumab and nivolumab IV Q21 days x4 cycles followed by 2 years of immunotherapy with nivolumab - received cycle 1 on 02/17/24 - to undergo radiation therapy with Dr. Soria - follows with Dr. Judge out patient; consulted (3) Hyponatremia: likely secondary to immunotherapy Patient with NA of 132 - asymptomatic - promote oral hydration (4) T2DM (type 2 diabetes mellitus): type II DM on Jardiance and metformin at home; - Most recent A1C 6.5% - will have home on nph sliding scale while on prednisone Plan Chronic stable diagnoses: ckd3 stable B12 deficiency - patient no longer takes home supplement HTN - continue losartan Code status: Full Notes For Next Care Provider will need to follow glucose response, oncology to also adjust dose and duration of prednisone will check glucose bid Admission HPI Per Admitting Provider Patient is a 53-year-old male with a past medical history of renal cell carcinoma s/p left nephrectomy 12/09/23, CLL, type 2 diabetes mellitus, hypertension, hyperlipidemia. He presents today due to an adverse reaction to his recent start of immunotherapy on 02/16. He stated that immediately after the first dose he had a fever of 103-104; he was then given steroids and began to feel better by Tuesday. Tuesday evening his temp leonardo mildly. Tuesday he went to see the [facility] in which he received fluids, chest x-ray, and blood work. Last evening his temp leonardo back up to 104 F, he had a headache, muscle aches, back spasms, and felt imbalanced. He went to the cancer center this morning who then referred him for direct right outpatient for 1000 mg Solu- Medrol daily. He took Tylenol at home to help with the fever, with little relief. He took an Aleve last night which did help but he is not to take NSAIDs with his CKD history. He is on day 4 of his Medrol taper pack. He has had a mild cough since Tuesday with no sputum production. He states he occasionally feels nauseous when the fever spikes, no vomiting. He also has dyspnea when the fever spikes, currently denies dyspnea and chest pain. Patient denies chills, dizziness, lightheadedness, rhinorrhea, sore throat, sputum production,dyspnea on exertion, chest pain, abdominal pain, nausea, vomiting, diarrhea, constipation, numbness, tingling. He does not smoke or use illicit drugs. He drinks about 1 beer a week. He denies previous VTE or clotting disorders, no history of COPD or asthma. He does not use oxygen at baseline. He took his home medications this morning, he stated he does not take his supplements anymore. He wishes to be full code at this time. The patient was discussed with Dr. Weber at the time of the admission/consult. Discharge Exam awake and alert understands glucose control and has sig other that can help Discharge Plan Discharge Items Patient Disposition: Home - Self-Care Reason For Visit: IMMUNOTHERAPY TOXICITY Discharge Diagnosis: immunotherapy toxicity uncontrolled diabetes Activity: Resume your previous activity Non-emergency contact: Primary Care Provider and Oncologist Call non-emergency contact if: your symptoms worsen Follow-up/Referrals: Marylou Nazario DO [Primary Care Provider] - 03/02/24 8:20 am Susan Judge MD [Physician] - 02/29/24 (Labs at 12:30 Dr. Judge @ 1:40) Diet: Carb Consistent or DM2 Addtl Attending Provider Instructions: please take prednisone daily and be in touch with Dr Judge your glucose control is a starting point the more healthy food you eat the easier it will be to control your sugar please check your glucose each morning and use the scale on the RX, the levels maybe adjusted so be in touch with your doctor,although you are only to take insulin once a day in the morning , check your glucose in the afternoon and record the numbers, this will help our doctors adjust your insulin Pending Studies at Discharge: No Stand-Alone Forms: My [facility], Smoking Cessation Medications and DC Order Prescriptions: New prednisone 20 mg tablet 80 mg PO DAILY Qty: 120 0RF Rx Instructions: and as directed by Dr Judge (DME) blood-glucose meter [OneTouch Verio Flex meter] Misc See Rx Instructions .Route Qty: 1 0RF Rx Instructions: As directed, daily testing (DME) OneTouch Verio test strips Strip See Rx Instructions .Route Qty: 50 0RF Rx Instructions: As directed bid testing (DME) lancets [OneTouch Delica Plus Lancet] 33 gauge misc See Rx Instructions .Route Qty: 100 2RF Rx Instructions: As directed, bid testing Humulin N NPH Insulin KwikPen 100 unit/mL (3 mL) insulin pen 10 unit subcut UD Qty: 15 2RF Rx Instructions: please supply 32 guage needleds for pens for daily use 10 units if bsg 150-249 15 units if bsg 250-349 20 units if bsg 350+ and call primary care office please call if additional Rx needed Continued metformin 500 mg tablet 500 mg PO BID Qty: 60 5RF losartan 50 mg tablet 50 mg PO QAM Qty: 90 1RF triamcinolone acetonide [Nasacort] 55 mcg aerosol,spray 2 sprays INTNAS QAM Jardiance 10 mg tablet 10 mg PO DAILY Qty: 90 3RF Colace Clear 50 mg capsule 50 mg PO BID PRN (Reason: constipation) Qty: 30 2RF oxycodone-acetaminophen [Percocet] 7.5-325 mg tablet 1 tab PO Q8H PRN (Reason: pain) Qty: 12 0RF Discharge Orders: Discharge Order (Routine); Ordered 02/23/24 Ordered By: Arturo Talley/Other Patient Handouts: Managing Type 2 Diabetes Admission Data Admit Date/Time: 02/21/24 10:48 Attending Provider: Arturo Padron Admit Provider: Ho Weber Primary Care Provider: Marylou Nazario Other Providers: Susan Judge Other Interventions: Discharge Summary Assessment (RN) Last Done: 11/07/24 14:55 Hospital Stay Data Consultations 02/21/24 11:37 Consult Oncology Routine Pending Results Patient Have Any Pending Studies at Discharge: No Discharge Instructions Given to Patient (Per Discharging Provider) please take prednisone daily and be in touch with Dr Judge your glucose control is a starting point the more healthy food you eat the easier it will be to control your sugar please check your glucose each morning and use the scale on the RX, the levels maybe adjusted so be in touch with your doctor,although you are only to take insulin once a day in the morning , check your glucose in the afternoon and record the numbers, this will help our doctors adjust your insulin Total Time Total Time Spent Total Time Spent (In Minutes): greater than 30 minutes required to discharge Coding Level of Care Code 32365 INP/OBS DISCH >30 MIN Diagnoses Medication adverse effect T50.905A Metastatic renal cell carcinoma to lung C78.00; C64.9 Hyponatremia E87.1 T2DM (type 2 diabetes mellitus) E11.9
--- NOTE | 2024-02-23 16:11 | Hematology/Oncology Prog Note ---
Date of Service February 23, 2024 Assessment & Plan (1) Thrombocytopenia: (2) Metastatic renal cell carcinoma to lung: (3) Chronic kidney disease with active medical management without dialysis, stage 3 (moderate): (4) CLL (chronic lymphocytic leukemia): (5) Renal cell cancer: Plan -Doing much better. Labs look improved as well with improving thrombocytopenia and almost complete resolution of transaminitis. -Recommend discharging on prednisone 1 mg/kg/day(can cap at 80 mg daily). Also recommend adjustment of diabetes medications since hyperglycemia has worsened due to steroids. -Plan to recheck labs next week. Will see him in clinic at that time as well. Admission and Anticipated Discharge Date Admission Date: February 21, 2024 Subjective Denies any new complaints. Results & Data Vital Signs (Past 12 Hours) Vital Signs Temp Pulse Resp BP BP Pulse Ox O2 Del Method 02/23/24 14:55 36.2 C L 72 18 138/86 122/74 96 02/23/24 11:51 36.2 C L 72 18 138/86 96 Room Air 02/23/24 07:50 36.5 C 61 16 123/77 98 Room Air
[2024-02-23] MEDS ORDERED: LANTUS PER UNIT CHARGE SC SCH (21:00)
[2024-02-25 09:07] LABS: Babesia microti DNA Not Detected (Not Detected)
== END 2024-02-23 17:02 | disposition home or self-care (01) | DRG 813 ==
LOC: 2W 10:48 → SUATTDRO 10:48

== ENCOUNTER 2024-04-30 15:27 | Inpatient (IN) ==
[2024-04-30] MEDS ORDERED: GLUCOSE 10 TAB/TUBE PO PRN (17:25)
[2024-04-30] MEDS ORDERED: DEXTROSE 50% 50 ML SYRINGE IV PRN (17:25)
[2024-04-30] MEDS ORDERED: PHARMACY GLYCEMIC MGMT CONSULT PRN (17:25)
[2024-04-30] MEDS ORDERED: CARBOHYDRATES FOR HYPOGLYCEMIA PO PRN (17:25)
[2024-04-30] MEDS ORDERED: GLUCAGON FOR INJ 1 MG VIAL SQ PRN (17:25)
[2024-04-30] MEDS ORDERED: GLUCOSE 40% GEL 15 GM TUBE PO PRN (17:25)
--- NOTE | 2024-04-30 17:25 | History & Physical Report ---
Date of Service April 30, 2024 Assessment & Plan (1) Autoimmune hemolytic anemia: Plan: Yevgeniy is a pleasant 53-year-old male with PMH of renal cell cancer s/p nephrectomy, CLL, HTN, HLD, T2DM, and CKD. He presented as a direct admission on 04/30 at the behest of Dr. Judge for ITP/autoimmune hemolytic anemia noted on outpatient labs. Hgb 10.9 on admission (04/30) 1 g Solu-Medrol daily x 3 days IVIG 1 g/kg daily Protonix 40 mg p.o. q24h for GI ppx in the setting of high dose steroid use Hematology consult appreciated (2) Thrombocytopenia: Plan: Platelet count 55 on 04/30 Concern for ITP on recent admission in Feb 2024; ?secondary to ipilimumab/nivolumab at that time Hold chemical DVT PPx for now Trend platelets (3) Insulin-requiring or dependent type II diabetes mellitus: Plan: Last A1c at 6.4% on 02/22/2024 Hold metformin, empagliflozin Patient is normally on NPH 10 units SQ daily Recommend Lantus twice daily + SSI T2DM diet BSG ACHS Adjust regimen as needed Pharmacy glycemic consult appreciated in the setting of high-dose steroid use (4) Metastatic renal cell carcinoma to lung: Plan: Follows with Dr. Judge outpatient; radiation therapy with Dr. Soria Therapeutic wedge resection x 2 of RLL and RML on 01/20/2024 S/p completion of SBRT treatment to the right lung lesion on 03/12/2024 Patient reports that he received a Neulasta injection on Tuesday04/23/2024 at the [facility] in [place] (5) Renal cell cancer: Plan: S/p left nephrectomy on 12/09/2023 (6) Chronic kidney disease with active medical management without dialysis, stage 3 (moderate): Plan: BUN 22, creatinine 1.56 (around baseline) on arrival Avoid nephrotoxic agents for possible Okay to continue losartan for now Trend BMP Plan Disposition: MedSurg Full code T2DM diet VTE PPx: SCDs History of Present Illness Chief Complaint: Referred by Doctor Primary Care Provider: Marylou Nazario DO Yevgeniy is a pleasant 53-year-old male with PMH of renal cell cancer s/p nephrectomy, CLL, HTN, HLD, T2DM, and CKD. He presented as a direct admission on 04/30 at the behest of Dr. Judge for ITP/autoimmune hemolytic anemia noted on outpatient labs. Patient's friend (Tameka) is present at the bedside. Patient reports that he is largely asymptomatic at this time. He has had occasional night sweats, as well as lightheadedness with standing, dry cough, and heaviness in his legs, but he has no acute concerns at this time. Additionally, he did have a Neulasta injection last Tuesday at the [facility] in [place]. No sick contacts, but he was traveling home from [place] recently. During his last episode of ITP, he did develop a rash on his lower back, and he does believe there is a superficial/erythematous rash that are now, albeit not to the degree it was there last time patient reports that he does have an allergy to IV contrast (rash); no history of anaphylaxis. Patient took his regular morning medicines today. He denies smoking or recent alcohol use; he does endorse chewing tobacco and using oral nicotine pouches (Zyns). Patient denies supplemental oxygen at baseline or CPAP at night. He reports he is largely asymptomatic at this time. ROS: Patient endorses occasional night sweats, superficial/erythematous rash on his back, lightheadedness when standing, dry cough, and heaviness in his legs. Patient denies fever, chills, syncope, headache, tick bites, chest pain, pleuritic CP, SOB, chest palpitations, abdominal pain, N/V/D, or changes in urinary/bowel habits. Allergies Allergy/AdvReac Type Severity Reaction Status Date / Time Iodinated Contrast Media Allergy Intermediate Skin Verified 04/30/24 17:54 redness sulfamethoxazole Allergy Intermediate Verified 04/30/24 17:54 [From Bactrim] trimethoprim [From Bactrim] Allergy Intermediate Verified 04/30/24 17:54 Home Medications Medication Instructions Recorded Confirmed Type triamcinolone acetonide 55 mcg 2 sprays intranasal QAM 03/06/19 04/30/24 History nasal spray aerosol (Nasacort) empagliflozin 10 mg tablet 10 mg PO DAILY #90 tabs 12/22/23 04/30/24 Rx (Jardiance) blood-glucose meter (OneTouch #1 ea 02/23/24 04/02/24 Rx Verio Flex Meter) lancets 33 gauge (OneTouch Delica #100 ea 02/23/24 04/02/24 Rx Plus Lancet) insulin NPH isoph U-100 human 100 12 unit subcut UD 03/08/24 04/30/24 History unit/mL (3 mL) subcutaneous pen (Humulin N NPH U-100 Insulin KwikPen) OneTouch Verio test strips (blood #200 ea 03/21/24 04/02/24 Rx sugar diagnostic) blood-glucose sensor (Dexcom G7 #3 ea 03/21/24 04/02/24 Rx Sensor device) insulin aspart U-100 100 unit/mL See Rx Instructions subcut 03/21/24 04/30/24 Rx (3 mL) subcutaneous pen (Novolog USEASDIRECTD #15 mL FlexPen U-100 Insulin aspart) prednisone 20 mg tablet 20 mg PO DAILY 03/30/24 04/30/24 History pen needle, diabetic 32 gauge x #400 ea 04/02/24 04/02/24 Rx " (Pen Needle) losartan 50 mg tablet 50 mg PO QAM #90 tabs 04/09/24 04/30/24 Rx metformin 500 mg tablet 500 mg PO BID 04/30/24 04/30/24 History Past Med/Surg History Problem List (Updated 04/30/24 @ 17:35 by Semaj Oviedo PA-C) Thrombocytopenia Autoimmune hemolytic anemia Abnormal thyroid blood test Metastatic renal cell carcinoma to lung Chronic kidney disease with active medical management without dialysis, stage 3 (moderate) Insulin-requiring or dependent type II diabetes mellitus S/p nephrectomy CLL (chronic lymphocytic leukemia) Renal cell cancer Hypertension Hyperlipidemia Medical History Nodule of right lung Medication adverse effect Postoperative hypertension Thrombocytopenia Hyponatremia (~02/23/24) History of COVID-19 Surgical History S/p nephrectomy (12/09/23) S/P partial lobectomy of lung (~01/20/24) History of tooth extraction History of wisdom tooth extraction S/P arthroscopic knee surgery (2010) Family History Mother Diabetes Heart disease Breast cancer Hypertension Father Diabetes Brother No problems noted. Sister No problems noted. Sister No problems noted. Son No problems noted. Other No family history of adverse response to anesthesia Denies family history of Ovarian cancer Prostate cancer Myocardial infarction Colorectal cancer Social History Smoking Status: Former smoker Tobacco Type: Smokeless Tobacco (Dip or Chew) Age Started Using Tobacco: 19; Cigarettes Per Day: 1/4 can per day; Second Hand Exposure: No; Do You Dip or Chew Tobacco: Yes; Tobacco Cessation Education Requested by Patient: No Hx Alcohol Use: Yes Alcohol type: beer Hx Substance Use: No Preferred Language: Wolof Communication Ability: Effective Visual Impairment: No Limitations Hearing Ability: Normal Neurodiagnostic Technologist Required: No Beliefs That Will Affect Care: None marital status: Single marital status details: Lives with Annamaria'. 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 [email or web address] How many Children do You have: 3 Other Information That Helps Us Care for You: No Feels Safe at Home: Yes Safety Concerns: Feels Safe At This Time Childhood Exposure to Second-Hand Smoke: Yes Diet: regular Diet Comment: regular caffeine: Yes (Soda x 2 per day Coffee x 2 per day.) during the past year weight has: remained stable Dental Care, Regularly: Yes Physical Activity Frequency: Daily Seatbelt Use: always Sunscreen Use: Yes Assistive Devices: None Review of Systems Review of Systems: See HPI above Physical Exam Physical Exam: General: no acute distress; pleasant affect; non-toxic appearing; well- nourished; cooperative HEENT: normocephalic, atraumatic; no scleral icterus; PERRLA w/ EOMs intact; vision and hearing grossly intact Neck: supple; no lymphadenopathy; trachea midline Skin: warm, dry without signs of tenting; no cyanosis; no rashes, bruising, lesions, or erythema noted CV: chest wall NTP; RRR; S1/S2 normal; no murmurs/rubs/gallops; pulses intact and symmetric at radial, DP, and PT Lungs: no acute respiratory distress; symmetrical chest wall expansion; clear breath sounds across all lung ocampo w/o adventitious sounds; no wheezing ABD: Soft, NTP; BS present; no rebound/guarding; no distention Back: Mild erythematous rash noted on the left lower back; NTP MSK: no tics or fasciculations; no edema noted in the LEs b/l, nonerythematous Neuro: A&Ox3; normal mood and affect; fluent speech; no focal deficits; sensation intact and symmetric in lower extremities bilaterally Code Status & VTE Plan Code Status Full code VTE Prophylaxis Plan VTE Prophylaxis will be ordered: Yes Supervising Physician Co-Signing Physician Notes I personally saw and examined the patient. I independently reviewed the labs, EKG, imaging, problem list, medication list, past medical history and family history. I verified all duncan points and agree with Semaj Oviedo PA-C with the following exceptions and/or additions: Patient seen first responding to code purple. IVIG had been uptitrated from minimum to maximum and patient felt nauseous following this and significantly tachycardic. EKG showing sinus tachycardia. No chest pain or shortness of breath. O/E HS increased rate, regular rhythm, no murmurs, Chest CTAB, Abdo SNT A/P ITP/hemolytic anemia - patient transferred to PCU to HR monitoring, continue IVIG, Solu-medrol and pantoprazole as per plan above. Consult hematology for ongoing recommendations tomorrow. Discussed with charge nurse to fill in incident form and discussed with pharmacy to possibly address written protocol for IVIG PG Care Time/CCT Total # of Minutes Spent Total Time Spent with Patient: Total time spent is greater than 50% in coordination of care (as documented) at patient's floor/unit and/or counseling patient: C[place] [address] INT INP/OBS CARE 3/75MIN Patient Type Established Medical Decision Making High Complexity Diagnoses Autoimmune hemolytic anemia D59.10 Thrombocytopenia D69.6 Insulin-requiring or dependent type II diabetes mellitus E11.9; Z79.4 Metastatic renal cell carcinoma to lung C78.00; C64.9 Renal cell cancer C64.9 Chronic kidney disease with active medical management without dialysis, stage 3 (moderate) N18.30
[2024-04-30] MEDS ORDERED: ACETAMINOPHEN 325 MG TAB PO PRN (17:31)
[2024-04-30] MEDS ORDERED: MELATONIN 3 MG TAB PO PRN (17:31)
[2024-04-30] MEDS ORDERED: Patient's HEIGHT &/or WEIGHT Needed SCH (17:45)
[2024-04-30] MEDS: Octagam 10% IVIG 10 gram bottle IV SCH (19:41)
[2024-04-30] MEDS ORDERED: methylPREDNISolone 1000 MG/16 ML IV SCH (20:00)
--- NOTE | 2024-04-30 21:06 | XRay Report ---
Exam(s): XR CXR 1 VIEW EXAM: XR Chest, 1 View CLINICAL HISTORY: Reason for exam: Dry cough, generalized fatigue. TECHNIQUE: Frontal view of the chest. COMPARISON: No relevant prior studies available. FINDINGS: Lungs: Postsurgical changes at the right costophrenic angle. No consolidation. New interstitial edema. Pleural space: No pleural effusion. No pneumothorax. Heart: Unremarkable. No cardiomegaly. IMPRESSION: No acute findings in the chest. Electronically signed by: Jason Granado MD 04/30/24 21:05 PM
[2024-04-30] MEDS: methylPREDNISolone 1,000 MG in NSS 250 ML IV SCH (21:09)
[2024-04-30 21:11] LABS: Hemoglobin 11.7 g/dl (14.0-18.0); Mean Corpuscular Hemoglobin 28.7 pg (25.0-34.0); Mean Corpuscular Hgb Conc 33.4 g/dL (32.0-36.0); Mean Corpuscular Volume 85.8 fL (80.0-100.0); Nucleated RBC # (auto) 0.15 K/uL (0.00-0.12); Nucleated RBC % (auto) 1.8 %; Platelet Count 61 K/uL (130-400); RDW Coefficient of Variation 15.7 % (11.5-14.5); RDW Standard Deviation 47.7 fL (36.4-46.3); Red Blood Count 4.08 M/uL (4.70-6.10); White Blood Count 8.26 K/ul (4.8-10.8)
[2024-04-30] MEDS: INSULIN ASPART PER UNIT CHARGE SC SCH (21:14)
[2024-04-30] MEDS: PANTOprazole 40 MG TAB PO SCH (21:15)
[2024-04-30] MEDS: LANTUS PER UNIT CHARGE SQ SCH (21:19)
[2024-04-30 21:25] LABS: BUN Creatinine Ratio 12.2 (10-20); Calcium 9.3 mg/dl (8.6-10.3); Creatinine Clr Calc Pharmacy 57.2 ml/min
[2024-04-30] MEDS: Octagam 10% IVIG 20 gram bottle IV SCH (21:45)
[2024-04-30 22:40] LABS: Basophils # (auto) 0.03 K/uL (0.00-0.20); Basophils % (auto) 0.4 %; Eosinophils # (auto) 0.01 K/uL (0.00-0.50); Eosinophils % (auto) 0.1 %; Immature Granulocytes % (auto) 1.2 %; Lymphocytes # (auto) 3.13 K/uL (1.20-3.40); Lymphocytes % (auto) 37.9 %; Monocytes # (auto) 0.38 K/uL (0.11-0.59); Monocytes % (auto) 4.6 %; Neutrophils # (auto) 4.61 K/uL (1.40-6.50); Neutrophils % (auto) 55.8 %; Polychromasia 1+
[2024-05-01] MEDS: INSULIN ASPART PER UNIT CHARGE SC SCH (00:03)
[2024-05-01] MEDS ORDERED: Octagam 10% IVIG 10 gram bottle IV SCH (06:00)
[2024-05-01 06:16] LABS: Hematocrit (blood only) 31.5 % (42.0-52.0); Hemoglobin 10.6 g/dl (14.0-18.0); Mean Corpuscular Hemoglobin 28.9 pg (25.0-34.0); Mean Corpuscular Hgb Conc 33.7 g/dL (32.0-36.0); Mean Corpuscular Volume 85.8 fL (80.0-100.0); Mean Platelet Volume 11.5 fL (9.4-12.4); Nucleated RBC # (auto) 0.09 K/uL (0.00-0.12); Nucleated RBC % (auto) 0.9 %; Platelet Count 62 K/uL (130-400); RDW Coefficient of Variation 15.9 % (11.5-14.5); RDW Standard Deviation 48.9 fL (36.4-46.3); Red Blood Count 3.67 M/uL (4.70-6.10); White Blood Count 9.86 K/ul (4.8-10.8)
[2024-05-01 06:32] LABS: BUN Creatinine Ratio 14.7 (10-20); Calcium 9.4 mg/dl (8.6-10.3); Creatinine Clr Calc Pharmacy 63.3 ml/min; Potassium 4.6 mmol/L (3.5-5.1)
[2024-05-01 06:42] LABS: Basophils # (auto) 0.02 K/uL (0.00-0.20); Basophils % (auto) 0.2 %; Lymphocytes # (auto) 2.62 K/uL (1.20-3.40); Lymphocytes % (auto) 26.6 %; Monocytes # (auto) 0.43 K/uL (0.11-0.59); Monocytes % (auto) 4.4 %; Neutrophils # (auto) 6.69 K/uL (1.40-6.50); Neutrophils % (auto) 67.8 %; Polychromasia 1+; Toxic Granulation 1+
[2024-05-01] MEDS ORDERED: Octagam 10% IVIG 20 gram bottle IV SCH (07:00)
[2024-05-01] MEDS ORDERED: INSULIN HUMAN NPH SC SCH (08:00)
--- NOTE | 2024-05-01 08:23 | Oncology Consultation ---
Date of Consultation May 01, 2024 Assessment & Plan (1) Thrombocytopenia: (2) Autoimmune hemolytic anemia: (3) Metastatic renal cell carcinoma to lung: (4) CLL (chronic lymphocytic leukemia): Plan Clinical picture and labs highly suggestive of ICI induced pancytopenia. Leukopenia has resolved with G-CSF. Thrombocytopenia appears to be slightly improved today after receiving a dose of IVIG. -Recommend IVIG 1 g/kg/day x 2 days in total. -Methylprednisolone 1 g IV per day x 3 days. -If platelet count continues to improve with IVIG and steroids, may consider discharging home on prednisone 60 mg daily. Will need close glucose monitoring. - If he does not respond to steroids, options for treatment include rituximab, tacrolimus, Cytoxan or CellCept. Thank you for this consult. Hematology will follow patient while in the hospital. Please feel free to call if you have any further questions. History of Present Illness Reason for Consultation: ICI induced hemolytic anemia and thrombocytopenia Attending Physician: Jacquelyn Koroma MD History of Present Illness 53-year-old gentleman with history of CLL initially diagnosed around Aug, 2023, renal cell carcinoma s/p left nephrectomy on 12/09/2023 and right lower lobe wedge resection on 01/20/2024. He subsequently received cycle 1 of immunotherapy with ipilimumab/nivolumab on 02/17/2024 but developed immunotherapy induced high- grade fever, transaminitis, rash, shortness of breath and thrombocytopenia necessitating inpatient hospitalization and high-dose steroids. Patient was being weaned off steroids and shortly after tapering dose of prednisone to 10 mg daily, developed severe neutropenia for which he received a dose of G-CSF with Fulphila while at [facility] last week. Bone marrow biopsy performed at [facility] was unremarkable except for mild bone marrow involvement by CLL. Patient subsequently returned to [facility] and labs obtained prior to outpatient appointment with pa yesterday revealed more than 2 point drop in hemoglobin to 10.9, hematocrit 32.8 and more than 50% drop in platelet count 55,000. LDH was elevated at 362, iron studies were within normal limits. Subsequently directly admitted to [facility] for ICI induced thrombocytopenia and hemolytic anemia. He received a dose of IVIG 1 g/kg yesterday and also received 1 g methylprednisolone yesterday. Allergies Allergy/AdvReac Type Severity Reaction Status Date / Time Iodinated Contrast Media Allergy Intermediate Skin Verified 04/30/24 17:54 redness sulfamethoxazole Allergy Intermediate Verified 04/30/24 17:54 [From Bactrim] trimethoprim [From Bactrim] Allergy Intermediate Verified 04/30/24 17:54 Home Medications Medication Instructions Recorded Confirmed Type triamcinolone acetonide 55 mcg 2 sprays intranasal QAM 03/06/19 04/30/24 History nasal spray aerosol (Nasacort) empagliflozin 10 mg tablet 10 mg PO DAILY #90 tabs 12/22/23 04/30/24 Rx (Jardiance) blood-glucose meter (OneTouch #1 ea 02/23/24 04/02/24 Rx Verio Flex Meter) lancets 33 gauge (OneTouch Delica #100 ea 02/23/24 04/02/24 Rx Plus Lancet) insulin NPH isoph U-100 human 100 12 unit subcut UD 03/08/24 04/30/24 History unit/mL (3 mL) subcutaneous pen (Humulin N NPH U-100 Insulin KwikPen) OneTouch Verio test strips (blood #200 ea 03/21/24 04/02/24 Rx sugar diagnostic) blood-glucose sensor (Dexcom G7 #3 ea 03/21/24 04/02/24 Rx Sensor device) insulin aspart U-100 100 unit/mL See Rx Instructions subcut 03/21/24 04/30/24 Rx (3 mL) subcutaneous pen (Novolog USEASDIRECTD #15 mL FlexPen U-100 Insulin aspart) prednisone 20 mg tablet 20 mg PO DAILY 03/30/24 04/30/24 History pen needle, diabetic 32 gauge x #400 ea 04/02/24 04/02/24 Rx 5/32" (Pen Needle) losartan 50 mg tablet 50 mg PO QAM #90 tabs 04/09/24 04/30/24 Rx metformin 500 mg tablet 500 mg PO BID 04/30/24 04/30/24 History Patient History Medical History Nodule of right lung Medication adverse effect Postoperative hypertension Thrombocytopenia Hyponatremia (~02/23/24) History of COVID-19 Surgical History S/p nephrectomy (12/09/23) S/P partial lobectomy of lung (~01/20/24) History of tooth extraction History of wisdom tooth extraction S/P arthroscopic knee surgery (2010) Family History Mother Diabetes Heart disease Breast cancer Hypertension Father Diabetes Brother No problems noted. Sister No problems noted. Sister No problems noted. Son No problems noted. Other No family history of adverse response to anesthesia Denies family history of Ovarian cancer Prostate cancer Myocardial infarction Colorectal cancer Social History Smoking Status: Former smoker Tobacco Type: Smokeless Tobacco (Dip or Chew) Age Started Using Tobacco: 19; Cigarettes Per Day: 1/4 can per day; Second Hand Exposure: No; Do You Dip or Chew Tobacco: Yes; Tobacco Cessation Education Requested by Patient: No Hx Alcohol Use: Yes Alcohol type: beer Hx Substance Use: No Preferred Language: Uzbek Communication Ability: Effective Visual Impairment: No Limitations Hearing Ability: Normal Property Accountant Required: No Beliefs That Will Affect Care: None marital status: Single marital status details: Lives with Pauline. 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 [employer] How many Children do You have: 3 Other Information That Helps Us Care for You: No Feels Safe at Home: Yes Safety Concerns: Feels Safe At This Time Childhood Exposure to Second-Hand Smoke: Yes Diet: regular Diet Comment: regular caffeine: Yes (Soda x 2 per day Coffee x 2 per day.) during the past year weight has: remained stable Dental Care, Regularly: Yes Physical Activity Frequency: Daily Seatbelt Use: always Sunscreen Use: Yes Assistive Devices: None Results & Data Vital Signs (Past 12 Hours) Vital Signs Temp Pulse Pulse Resp BP Pulse Ox O2 Del Method 05/01/24 07:00 36.3 C L 87 18 134/89 97 Room Air 05/01/24 03:52 36.4 C L 75 18 110/73 95 Room Air 04/30/24 21:11 37.1 C 118 H 20 135/79 95 Room Air 04/30/24 21:10 113 H 04/30/24 20:46 125 H 107/71 96 Room Air 04/30/24 20:18 37.1 C 106 H 18 135/77 95 Room Air
[2024-05-01] MEDS: FLUTICASONE PROPIONATE NA SPR 16 GM BTL SCH (08:28)
[2024-05-01] MEDS: LOSARTAN POTASSIUM 50 MG TAB PO SCH (08:29)
[2024-05-01] MEDS: LANTUS PER UNIT CHARGE SQ SCH (08:30)
[2024-05-01] MEDS ORDERED: IMMUNE GLOBULIN (HUMAN) SOLN IV SCH (09:00)
--- NOTE | 2024-05-01 11:18 | Pharmacy Report ---
Pharmacy Glycemic Short Note 2 - Date of Service May 01, 2024 - Glycemic Short BSG Results (Last 24 hours): 04/30/24 04/30/24 04/30/24 18:30 20:36 20:58 Glucose 137 H POC Glucose 114 H 148 H 04/30/24 05/01/24 05/01/24 23:58 03:50 05:31 Glucose 200 H POC Glucose 216 H 234 H 05/01/24 07:59 Glucose POC Glucose 197 H OUTPATIENT ANTIDIABETIC REGIMEN: * Humulin N 12-15 units QAM * Novolog SS--(CF30 for BSG > 200) up to 30 units/day * Jardiance 10mg PO daily * metformin 500mg po bid HBA1c 6.4% on 02/22/24 ASSESSMENT: * 53 year old male was a direct admit yesterday for ITP/autoimmune hemolytic anemia. PMH significant for renal cell carcinoma s/p nephrectomy and CLL. Pharmacy was consulted for glycemic management while patient is admitted due to high-dose steroid use (methylprednisolone 1gm iv q24 hours x 3). * BSG on admit was 114mg/dL but leonardo to 216mg/dL after the first dose of methylprednisolone last evening. Lantus 7 units SQ bid was started. Weight based bolus insulin with a stress of 2 was started last evening as well. * Fasting BSG was 197 this morning. Bolus insulin was tightened to a stress of 3. Since solumedrol is ordered for 1999, overnight BSG checks have been added. Will continue basal as is for now but will likely need to increase the dose. PLAN FOR INPATIENT GLYCEMIC CONTROL: * Hold outpatient diabetes medications * Basal insulin * Lantus 7 units SQ BID * Bolus insulin * NovoLog per scale ACHS or Q6hrs while NPO * Goal Range: Low 110 mg/dL - High 140 mg/dL * Correction Factor: 15 mg/dL/unit * Nutritional / Prandial insulin per carb ratio of 1 unit per 5 grams CHO consumed
--- NOTE | 2024-05-01 13:19 | Hospitalist Progress Note ---
Date of Service May 01, 2024 Assessment & Plan (1) Autoimmune hemolytic anemia: Plan: Yevgeniy is a 53-year-old male with PMH of renal cell cancer s/p nephrectomy, CLL, HTN, HLD, T2DM, and CKD. He presented as a direct admission on 04/30 at the behest of Dr. Judge for ITP/autoimmune hemolytic anemia noted on outpatient labs. He received Neulasta at the [facility] 1 week prior to admission. His ITP is thought to be related to/as a side effect of recent immunotherapy for his metastatic renal cell carcinoma Had brief sinus tachycardia with rapid infusion of IVIG-resolved Hgb remains stable at 10.6, platelets stable from yesterday at 62. Iron studies normal, B12, folate normal Continue 1 g Solu-Medrol IV daily Continue IVIG 1 g/kg daily Continue Protonix 40 mg p.o. q24h for GI ppx in the setting of high dose steroid use Hematology consult appreciated Follow CBC, CMP, LDH, haptoglobin pending (2) Thrombocytopenia: Plan: As above (3) Insulin-requiring or dependent type II diabetes mellitus: Plan: Last A1c at 6.4% on 02/22/2024 Hold metformin, empagliflozin, NPH from home Continue Lantus and NovoLog-adjust as needed for hyperglycemia Pharmacy glycemic consult appreciated in the setting of high-dose steroid use With pseudohyponatremia secondary to hyperglycemia (4) Metastatic renal cell carcinoma to lung: Plan: Follows with Dr. Judge outpatient; radiation therapy with Dr. Soria Therapeutic wedge resection x 2 of RLL and RML on 01/20/2024 S/p completion of SBRT treatment to the right lung lesion on 03/12/2024 Patient reports that he received a Neulasta injection on Tuesday04/23/2024 at the [facility] in [place] (5) Chronic kidney disease with active medical management without dialysis, stage 3 (moderate): Plan: BUN 22, creatinine 1.56 (around baseline) on arrival, creatinine up to 1.88 on admission and now improved to 1.7 Avoid nephrotoxic agents Okay to continue losartan for now Trend BMP Plan Disposition: Continued stay on telemetry Full code VTE PPx: SCDs, avoid anticoagulation due to thrombocytopenia Admission and Anticipated Discharge Date Admission Date: April 30, 2024 Subjective Patient feels well and has no complaints. He had some tachycardia with rapid infusion of IVIG last evening and was moved to telemetry. This quickly resolved with pausing the IVIG infusion. Denies chest pains or shortness of breath, no lightheadedness, no pain. No bleeding from anywhere Telemetry with normal sinus rhythm and rates in the 90s to low 100s Physical Exam Constitutional: WD/WN, vitals as above Respiratory: normal respiratory effort, lungs clear to auscultation Cardiovascular: RRR, no murmur, no edema Psychiatric: A+Ox3, euthymic affect Results & Data Results & Data Vital Signs (Past 12 Hours) Vital Signs Temp Pulse Pulse Resp BP Pulse Ox O2 Del Method 05/01/24 11:54 74 05/01/24 11:25 36.4 C L 104 H 20 149/89 H 96 Room Air 05/01/24 08:00 Room Air 05/01/24 07:00 36.3 C L 87 18 134/89 97 Room Air 05/01/24 03:52 36.4 C L 75 18 110/73 95 Room Air Laboratory Results CBC, CMP, LDH, iron studies, TSH reviewed Diagnostic Findings Chest x-ray reviewed ECG Additional Comments: ECG with sinus tachycardia with rate 124, no acute ischemic changes PG Care Time/CCT Total # of Minutes Spent Total Time Spent with Patient: Total time spent is greater than 50% in coordination of care (as documented) at patient's floor/unit and/or counseling patient: Coding Level of Care Code 27311 SUB INP/OBS CARE 3/50MIN Diagnoses Autoimmune hemolytic anemia D59.10 Thrombocytopenia D69.6 Insulin-requiring or dependent type II diabetes mellitus E11.9; Z79.4 Metastatic renal cell carcinoma to lung C78.00; C64.9 Chronic kidney disease with active medical management without dialysis, stage 3 (moderate) N18.30
[2024-05-01] MEDS ORDERED: methylPREDNISolone 125 MG/2 ML VIAL IV STA (17:23)
[2024-05-01] MEDS: ACETAMINOPHEN 325 MG TAB PO ONE (17:54)
[2024-05-01] MEDS: diphenhydrAMINE Capsule 25 MG CAP PO STA (17:54)
[2024-05-01] MEDS: IMMUN GLOBG(IGG)/MALT/IGA OV50 200 ML IV SCH (19:45)
[2024-05-01] MEDS: IMMUN GLOBG(IGG)/MALT/IGA OV50 100 ML IV SCH (22:02)
[2024-05-02] MEDS: INSULIN ASPART PER UNIT CHARGE SC SCH (00:45)
[2024-05-02 06:06] LABS: Basophils # (auto) 0.03 K/uL (0.00-0.20); Basophils % (auto) 0.3 %; Hematocrit (blood only) 27.6 % (42.0-52.0); Hemoglobin 9.2 g/dl (14.0-18.0); Immature Granulocytes # (auto) 0.24 K/uL (0.01-0.20); Immature Granulocytes % (auto) 2.1 %; Lymphocytes # (auto) 1.65 K/uL (1.20-3.40); Lymphocytes % (auto) 14.7 %; Mean Corpuscular Hemoglobin 28.1 pg (25.0-34.0); Mean Corpuscular Hgb Conc 33.3 g/dL (32.0-36.0); Mean Corpuscular Volume 84.4 fL (80.0-100.0); Mean Platelet Volume 11.5 fL (9.4-12.4); Monocytes # (auto) 0.39 K/uL (0.11-0.59); Monocytes % (auto) 3.5 %; Neutrophils # (auto) 8.89 K/uL (1.40-6.50); Neutrophils % (auto) 79.4 %; Nucleated RBC # (auto) 0.06 K/uL (0.00-0.12); Nucleated RBC % (auto) 0.5 %; Platelet Count 59 K/uL (130-400); RDW Coefficient of Variation 15.8 % (11.5-14.5); RDW Standard Deviation 46.5 fL (36.4-46.3); Red Blood Count 3.27 M/uL (4.70-6.10)
[2024-05-02 06:38] LABS: BUN Creatinine Ratio 20.1 (10-20); Calcium 9.4 mg/dl (8.6-10.3); Creatinine Clr Calc Pharmacy 67.7 ml/min; Potassium 4.2 mmol/L (3.5-5.1)
[2024-05-02 08:33] LABS: Reticulocyte % 4.22 % (0.50-2.00); Reticulocytes # 0.14 10^6/uL (0.020-0.100)
--- NOTE | 2024-05-02 09:40 | Electrocardiogram Report ---
Test Reason : Blood Pressure : */* mmHG Vent. Rate : 104 BPM Atrial Rate : 104 BPM P-R Int : 174 ms QRS Dur : 84 ms QT Int : 326 ms P-R-T Axes : 66 31 53 degrees QTcB Int : 428 ms Sinus tachycardia Nonspecific ST abnormality Abnormal ECG When compared with ECG of 21-Feb-2024 14:35, No significant change was found Confirmed by Hilton Estrada ([id number]) on 05/02/2024 9:40:08 AM Referred By: Susan Judge Confirmed By: Hilton Estrada
--- NOTE | 2024-05-02 09:40 | Electrocardiogram Report ---
Test Reason : Blood Pressure : */* mmHG Vent. Rate : 124 BPM Atrial Rate : 124 BPM P-R Int : 152 ms QRS Dur : 84 ms QT Int : 300 ms P-R-T Axes : 57 30 56 degrees QTcB Int : 431 ms Sinus tachycardia Otherwise normal ECG When compared with ECG of 30-Apr-2024 19:55, No significant change was found Confirmed by Hilton Estrada ([id number]) on 05/02/2024 9:40:19 AM Referred By: Susan Judge Confirmed By: Hilton Estrada
[2024-05-02] MEDS: FOLIC ACID 1 MG TAB PO SCH (12:54)
--- NOTE | 2024-05-02 16:00 | Hospitalist Progress Note ---
Date of Service May 02, 2024 Assessment & Plan (1) Autoimmune hemolytic anemia: Plan: Yevgeniy is a 53-year-old male with PMH of renal cell cancer with mets to the lung s/p nephrectomy and lobectomy, immunotherapy induced thrombocytopenia, CLL, HTN, HLD, T2DM, and CKD. He presented as a direct admission on 04/30 at the behest of Dr. Judge for ITP/autoimmune hemolytic anemia/immunotherapy induced pancytopenia noted on outpatient labs. He received Neulasta at the [facility] 1 week prior to admission Had brief sinus tachycardia with rapid infusion of IVIG on the evening of admission-resolved and no further events on telemetry He is now s/p 2 days of high-dose IV Solu-Medrol and IVIG but platelets remain low at 59, hemoglobin mildly reduced at 9.2-some of this may be hemodilutional. WBC count up to 11.2 as infective recent Neulasta as well as steroids Iron studies normal, B12, folate normal LDH trending downward to 274 Continue 1 g Solu-Medrol IV daily today and then likely will send home on prednisone 60-100 mg p.o. daily-will discuss with oncology prior to discharge Continue IVIG 1 g/kg daily with another/third dose today-premedicate with Benadryl and Tylenol as recommended by oncology Continue Protonix 40 mg p.o. q24h for GI ppx in the setting of high dose steroid use Hematology consult appreciated Follow CBC, CMP, LDH in the morning; haptoglobin pending (2) Thrombocytopenia: Plan: As above (3) Insulin-requiring or dependent type II diabetes mellitus: Plan: Last A1c at 6.4% on 02/22/2024 Hold metformin, empagliflozin, NPH from home Continue Lantus and NovoLog-adjust as needed for hyperglycemia-being managed by pharmacy With pseudohyponatremia secondary to hyperglycemia (4) Metastatic renal cell carcinoma to lung: Plan: Follows with Dr. Judge outpatient; s/p completion of SBRT treatment to the right lung lesion on 03/12/[address] Soria Therapeutic wedge resection x 2 of RLL and RML on 01/20/2024 Patient reports that he received a Neulasta injection on Tuesday04/23/2024 at the [facility] in [place] (5) Chronic kidney disease with active medical management without dialysis, stage 3 (moderate): Plan: BUN 22, creatinine 1.56 (around baseline) on arrival, creatinine up to 1.88 on admission and now improved to 1.5/baseline Avoid nephrotoxic agents Okay to continue losartan Trend BMP again in the morning Plan Disposition: Continued stay on telemetry to monitor for tachycardia, but hopeful for discharge to home on 05/03 Full code VTE PPx: SCDs, avoid anticoagulation due to thrombocytopenia Admission and Anticipated Discharge Date Admission Date: April 30, 2024 Subjective Patient feels well, no complaints. No difficulty sleeping. Tolerated IVIG last night. Telemetry with normal sinus rhythm with rates in the 70s to 100s I discussed his care with oncology on the phone Physical Exam Constitutional: WD/WN, vitals as above Respiratory: normal respiratory effort, lungs clear to auscultation Cardiovascular: RRR, no murmur, no edema Skin: + rash (Lower back with macular purpura nonblanching) Psychiatric: A+Ox3, euthymic affect Results & Data Results & Data Vital Signs (Past 12 Hours) Vital Signs Temp Pulse Pulse Resp BP Pulse Ox O2 Del Method 05/02/24 12:26 36.6 C 101 H 20 157/89 H 96 Room Air 05/02/24 10:00 96 H 05/02/24 08:08 36.4 C L 90 18 123/82 97 Room Air 05/02/24 04:17 36.4 C L 85 16 121/81 98 Room Air Laboratory Results CBC, BMP, LDH reviewed PG Care Time/CCT Total # of Minutes Spent Total Time Spent with Patient: Total time spent is greater than 50% in coordination of care (as documented) at patient's floor/unit and/or counseling patient: Coding Level of Care Code 44774 SUB INP/OBS CARE 2/35MIN Diagnoses Autoimmune hemolytic anemia D59.10 Thrombocytopenia D69.6 Insulin-requiring or dependent type II diabetes mellitus E11.9; Z79.4 Metastatic renal cell carcinoma to lung C78.00; C64.9 Chronic kidney disease with active medical management without dialysis, stage 3 (moderate) N18.30
[2024-05-02] MEDS ORDERED: methylPREDNISolone 1000 MG/16 ML IV ONE (18:00)
[2024-05-02] MEDS: diphenhydrAMINE Capsule 25 MG CAP PO ONE (18:16)
[2024-05-02] MEDS: ACETAMINOPHEN 325 MG TAB PO ONE (18:16)
[2024-05-02] MEDS: methylPREDNISolone 1,000 MG in NSS 250 ML IV SCH (18:17)
[2024-05-02] MEDS: IMMUN GLOBG(IGG)/MALT/IGA OV50 100 ML IV SCH (18:29)
[2024-05-02] MEDS ORDERED: IMMUNE GLOBULIN (HUMAN) SOLN IV ONE (18:30)
[2024-05-02] MEDS: IMMUN GLOBG(IGG)/MALT/IGA OV50 200 ML IV SCH (19:46)
[2024-05-03 06:06] LABS: Hematocrit (blood only) 27.1 % (42.0-52.0); Hemoglobin 9.1 g/dl (14.0-18.0); Mean Corpuscular Hgb Conc 33.6 g/dL (32.0-36.0); Mean Corpuscular Volume 86.3 fL (80.0-100.0); Mean Platelet Volume 10.7 fL (9.4-12.4); Nucleated RBC % (auto) 0.8 %; Platelet Count 57 K/uL (130-400); RDW Coefficient of Variation 16.1 % (11.5-14.5); RDW Standard Deviation 48.7 fL (36.4-46.3); Red Blood Count 3.14 M/uL (4.70-6.10); White Blood Count 12.36 K/ul (4.8-10.8)
[2024-05-03 06:19] LABS: Albumin Level 3.3 gm/dl (3.4-5.0); BUN Creatinine Ratio 21.5 (10-20); Bilirubin Direct 0.1 mg/dl (0-0.2); Bilirubin,Total 0.5 mg/dl (0.2-1.0); Creatinine Clr Calc Pharmacy 74.7 ml/min; Magnesium 2.4 mg/dl (1.7-2.4); Potassium 4.1 mmol/L (3.5-5.1); Total Protein 8.4 gm/dl (6.0-8.3)
[2024-05-03 06:27] LABS: Basophils # (auto) 0.04 K/uL (0.00-0.20); Basophils % (auto) 0.3 %; Immature Granulocytes # (auto) 1.09 K/uL (0.01-0.20); Immature Granulocytes % (auto) 8.8 %; Lymphocytes # (auto) 1.41 K/uL (1.20-3.40); Lymphocytes % (auto) 11.4 %; Monocytes # (auto) 0.36 K/uL (0.11-0.59); Monocytes % (auto) 2.9 %; Neutrophils # (auto) 9.46 K/uL (1.40-6.50); Neutrophils % (auto) 76.6 %
[2024-05-03 08:32] VITALS: TEMP 97.9
--- NOTE | 2024-05-03 08:50 | Pharmacy Report ---
Pharmacy Glycemic Short Note 2 - Date of Service May 03, 2024 - Glycemic Short BSG Results (Last 24 hours): 05/02/24 05/02/24 05/02/24 12:15 17:03 20:20 Glucose POC Glucose 219 H 162 H 220 H 05/03/24 05/03/24 05:28 08:08 Glucose 212 H POC Glucose 231 H OUTPATIENT ANTIDIABETIC REGIMEN: * Humulin N 12-15 units QAM * Novolog SS--(CF30 for BSG > 200) up to 30 units/day * Jardiance 10mg PO daily * metformin 500mg po bid HBA1c 6.4% on 02/22/24 ASSESSMENT: 05/03 * Patient received total of 67 units of insulin yesterday, of which 14 units were basal insulin * An additional dose of solumedrol 1gm ordered last evening, BSGs trending up after dose. Fasting BSG >200 this AM - will give slightly higher Lantus dose this AM to cover steroid effects. * No change to CF/CR today, may need to loosen tomorrow if no further steroids 05/01 * 53 year old male was a direct admit yesterday for ITP/autoimmune hemolytic anemia. PMH significant for renal cell carcinoma s/p nephrectomy and CLL. Pharmacy was consulted for glycemic management while patient is admitted due to high-dose steroid use (methylprednisolone 1gm iv q24 hours x 3). * BSG on admit was 114mg/dL but leonardo to 216mg/dL after the first dose of methylprednisolone last evening. Lantus 7 units SQ bid was started. Weight based bolus insulin with a stress of 2 was started last evening as well. * Fasting BSG was 197 this morning. Bolus insulin was tightened to a stress of 3. Since solumedrol is ordered for 1999, overnight BSG checks have been added. Will continue basal as is for now but will likely need to increase the dose. PLAN FOR INPATIENT GLYCEMIC CONTROL: * Hold outpatient diabetes medications * Basal insulin * Lantus 10 units x 1 * Lantus 5-7 units HS * Bolus insulin * NovoLog per scale ACHS or Q6hrs while NPO * Goal Range: Low 110 mg/dL - High 140 mg/dL * Correction Factor: 15 mg/dL/unit * Nutritional / Prandial insulin per carb ratio of 1 unit per 5 grams CHO consumed
[2024-05-03] MEDS: LANTUS PER UNIT CHARGE SQ SCH (08:56)
--- NOTE | 2024-05-03 11:09 | Discharge Summary ---
Discharge Summary Date of Service May 03, 2024 Principal Dx & Hospital Course #1 = Principal Diagnosis (1) Autoimmune hemolytic anemia: Yevgeniy is a 53-year-old male with PMH of renal cell cancer with mets to the lung s/p nephrectomy and lobectomy, immunotherapy induced thrombocytopenia, CLL, HTN, HLD, T2DM, and CKD. He presented as a direct admission on 04/30 at the behest of Dr. Judge for ITP/autoimmune hemolytic anemia/immunotherapy induced pancytopenia noted on outpatient labs. He received Neulasta at the [facility] 1 week prior to admission Had brief sinus tachycardia with rapid infusion of IVIG on the evening of admission-resolved and no further events on telemetry He is now s/p 3 days of high-dose IV Solu-Medrol 1000 mg daily and IVIG but platelets remain low at 57, hemoglobin mildly reduced at 9.1 but stable from previous day-some of this may be hemodilutional. WBC count up to 12 as received recent Neulasta as well as steroids Iron studies normal, B12, folate normal, but was placed on folic acid 1 mg daily LDH trending downward to normal, total bilirubin now normal indicating hemolysis improved Discharged home on prednisone 100 mg p.o. daily-to be titrated down by oncology Follow-up with oncology next week for CBC and to start Rituxan Continue Protonix 40 mg p.o. daily for GI ppx in the setting of high dose steroid use Hematology consult appreciated (2) Thrombocytopenia: As above (3) Insulin-requiring or dependent type II diabetes mellitus: Last A1c at 6.4% on 02/22/2024 Okay to resume home metformin, empagliflozin Managed with Lantus and NovoLog here-discharged home on NPH but increase dose to 15 units once daily in the morning, continue NovoLog 15 units with each meal Follow-up with endocrinology or bilingual spanish inbound sales through portal or in person. He has a Dexcom as well. With pseudohyponatremia secondary to hyperglycemia (4) Metastatic renal cell carcinoma to lung: Follows with Dr. Judge outpatient; s/p completion of SBRT treatment to the right lung lesion on 03/12/[address] Soria Therapeutic wedge resection x 2 of RLL and RML on 01/20/2024 Patient reports that he received a Neulasta injection on Tuesday04/23/2024 at the [facility] in [place] (5) Chronic kidney disease with active medical management without dialysis, stage 3 (moderate): BUN 22, creatinine 1.56 (around baseline) on arrival, creatinine up to 1.88 on admission and now improved to 1.5/baseline Avoid nephrotoxic agents Okay to continue losartan Follow BMP as an outpatient Plan Disposition: Discharge to home Full code VTE PPx: SCDs, avoid anticoagulation due to thrombocytopenia Notes For Next Care Provider Follow-up CBC and for Rituxan infusion next week in oncology office May need adjustments to insulin with endocrinology after discharge given high- dose steroids Medication Changes From Visit Added prednisone 100 mg p.o. daily Added Protonix 40 mg p.o. daily Admission HPI Per Admitting Provider Yevgeniy is a pleasant 53-year-old male with PMH of renal cell cancer s/p nephrectomy, CLL, HTN, HLD, T2DM, and CKD. He presented as a direct admission on 04/30 at the behest of Dr. Judge for ITP/autoimmune hemolytic anemia noted on outpatient labs. Patient's friend (Tameka) is present at the bedside. Patient reports that he is largely asymptomatic at this time. He has had occasional night sweats, as well as lightheadedness with standing, dry cough, and heaviness in his legs, but he has no acute concerns at this time. Additionally, he did have a Neulasta injection last Tuesday at the [facility] in [place]. No sick contacts, but he was traveling home from [place] recently. During his last episode of ITP, he did develop a rash on his lower back, and he does believe th ere is a superficial/erythematous rash that are now, albeit not to the degree it was there last time patient reports that he does have an allergy to IV contrast (rash); no history of anaphylaxis. Patient took his regular morning medicines today. He denies smoking or recent alcohol use; he does endorse chewing tobacco and using oral nicotine pouches (Zyns). Patient denies supplemental oxygen at baseline or CPAP at night. He reports he is largely asymptomatic at this time. ROS: Patient endorses occasional night sweats, superficial/erythematous rash on his back, lightheadedness when standing, dry cough, and heaviness in his legs. Patient denies fever, chills, syncope, headache, tick bites, chest pain, pleuritic CP, SOB, chest palpitations, abdominal pain, N/V/D, or changes in urinary/bowel habits. Discharge Exam Constitutional WD/WN, vitals as above Respiratory normal respiratory effort, lungs clear to auscultation Cardiovascular RRR, no murmur, no edema Skin + rash (Lower back with macular purpura nonblanching) Psychiatric A+Ox3, euthymic affect Discharge Plan Discharge Items Patient Disposition: Home - Self-Care Reason For Visit: IMMUNE THROMBOCYTOPENIA + AUTOIMMUNE HEMOLYTIC ANE Discharge Diagnosis: ITP, autoimmune hemolytic anemia Hyperglycemia Condition on Discharge: Good Activity: Resume your previous activity Non-emergency contact: Primary Care Provider and Oncologist Call non-emergency contact if: you have any medication questions and your sy mptoms worsen Follow-up/Referrals: Marylou Nazario, [Primary Care Provider] - (Follow-up within 2 weeks after discharge.) Diet: Carb Consistent or DM2 Addtl Attending Provider Instructions: Please continue on the prednisone 100 mg daily-Dr. Judge will tell you when you can taper down on this dose. Follow-up with her next week for recheck of your CBC and for further treatment of your condition with Rituxan. You were started on Protonix once daily which is an antacid to help prevent stomach ulcers from high-dose prednisone. Increase your NPH to 15 units once daily in the morning and continue on your usual 15 units of short acting insulin with each meal. Contact your tube rebuilder if you continue to have elevated blood sugars as we discussed. Pending Studies at Discharge: No Stand-Alone Forms: My [facility] [employer], Smoking Cessation Medications and DC Order Prescriptions: New pantoprazole 40 mg Tablet,Delayed Release (Dr/Ec) 40 mg PO QAM Qty: 30 0RF folic acid 1 mg Tablet 1 mg PO QAM Qty: 30 0RF Rx Instructions: Nzct-kbd-dtyxley Continued (DME) pen needle, diabetic [Pen Needle] 32 gauge x 5/32" needle See Rx Instructions .Route Qty: 400 3RF Rx Instructions: Inject up to 4x/daily injections losartan 50 mg tablet 50 mg PO QAM Qty: 90 1RF triamcinolone acetonide [Nasacort] 55 mcg aerosol,spray 2 sprays INTNAS QAM (DME) OneTouch Verio test strips Strip See Rx Instructions .Route Qty: 200 3RF Rx Instructions: Test blood sugar twice daily (DME) Dexcom G7 Sensor Device See Rx Instructions .ROUTE .MEDSUPPLY Qty: 3 3RF Rx Instructions: Change every 10 days to monitor glucose levels. Jardiance 10 mg tablet 10 mg PO DAILY Qty: 90 3RF (DME) blood-glucose meter [OneTouch Verio Flex meter] [facility] [place] See Rx Instructions .Route Qty: 1 0RF Rx Instructions: As directed, daily testing (DME) lancets [OneTouch Delica Plus Lancet] 33 gauge [facility] [place] See Rx Instructions .Route Qty: 100 2RF Rx Instructions: As directed, bid testing metformin 500 mg tablet 500 mg PO BID Changed prednisone 20 mg tablet 100 mg PO DAILY Qty: 150 0RF Humulin N NPH Insulin KwikPen 100 unit/mL (3 mL) insulin pen 15 unit subcut QAM Qty: 15 1RF insulin aspart U-100 [Novolog FlexPen U-100 Insulin] 100 unit/mL (3 mL) insulin pen 15 unit subcut .qa Qty: 15 1RF Discharge Orders: Discharge Order (Routine); Ordered 05/03/24 Ordered By: Jacquelyn Koroma Admission Data Admit Date/Time: 04/30/24 17:32 Attending Provider: Jacquelyn Koroma Admit Provider: Ho Weber Primary Care Provider: Marylou Nazario Other Providers: Susan Judge Hospital Stay Data Consultations 04/30/24 17:32 Consult Hematology Routine Pending Results Patient Have Any Pending Studies at Discharge: No Discharge Instructions Given to Patient (Per Discharging Provider) Please continue on the prednisone 100 mg daily-Dr. Judge will tell you when you can taper down on this dose. Follow-up with her next week for recheck of your CBC and for further treatment of your condition with Rituxan. You were started on Protonix once daily which is an antacid to help prevent stomach ulcers from high-dose prednisone. Increase your NPH to 15 units once daily in the morning and continue on your usual 15 units of short acting insulin with each meal. Contact your tube rebuilder if you continue to have elevated blood sugars as we discussed. Total Time Total Time Spent Total Time Spent (In Minutes): 35 minutes Total Time Includes: Examination of the Patient, Discharge Planning, Medication Reconciliation and Communication With Other Providers (Oncology) Coding Level of Care Code 34095 INP/OBS DISCH >30 MIN Diagnoses Autoimmune hemolytic anemia D59.10 Thrombocytopenia D69.6 Insulin-requiring or dependent type II diabetes mellitus E11.9; Z79.4 Metastatic renal cell carcinoma to lung C78.00; C64.9 Chronic kidney disease with active medical management without dialysis, stage 3 (moderate) N18.30
[2024-05-03 12:16] VITALS: PULSE 106; RESP 18; O2SAT 98
[2024-05-03 13:13] VITALS: BP 137/91
[2024-05-03] MEDS ORDERED: LANTUS PER UNIT CHARGE SQ SCH (21:00)
== END 2024-05-03 14:22 | disposition home or self-care (01) | DRG 813 ==
LOC: 3E 17:31 → SUATTDRO 17:31 → 4W 21:05

== ENCOUNTER 2024-07-05 08:54 | Inpatient (IN) ==
[2024-07-05] MEDS: SODIUM CHLORIDE 0.9% 1,000 ML IV ONE (09:27)
--- NOTE | 2024-07-05 09:49 | Emergency Department Note ---
Impression & Plan SOB (shortness of breath) on exertion, Renal cell cancer, CLL (chronic lymphocytic leukemia), Pneumonia, Pneumonitis ED Provider Note NAME: RERE SÁNCHEZ AGE: 53 SEX: M : 1970 ARRIVES VIA: Walk-In INFORMANT: Patient ED PROVIDER(S): James Miguel MD CHIEF COMPLAINT: Shortness of breath and hypoxia with exertion. PLAN: Disposition: Admit MEDICAL DECISION MAKING: The patient is a pleasant 53-year-old gentleman with a past medical history of renal cell cancer status post nephrectomy and RLL medial lobe wedge resection 2/2 metastasis, CLL, hypertension, hyperlipidemia, type 2 diabetes, CKD who presents to the emergency department via walk-in referred by his oncology office for admission for management of pneumonia versus pneumonitis and ongoing hypoxia with minimal exertion. 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 Attempt at direct admission was pursued but due to current hospital census was referred to emergency department for assessment and admission. Patient is currently on levofloxacin and steroids following CTA of the chest last week, which was negative for PE but with evidence of pneumonia/pneumonitis. Patient has had a bad reaction to Bactrim in the past and so is not on this currently. Case was reviewed with the patient's oncologist, Dr. Judge. Pulmonology is aware and may consider bronchoscopy in the hospital. Agrees with plan for admission for further management. On evaluation the patient is no distress, afebrile with heart in the 100s and O2 saturation 93% on room air with normal respiratory effort. Lungs are clear. EKG without overt acute ischemia. CXR with new left lung base airspace opacity per my personal preliminary review/interpretation. WBC within normal limits with neutrophil predominance but no left shift. H/H and platelets within normal limits. Chemistry without metabolic acidosis. Creatinine 1.49 similar to prior values in the setting of CKD. Initial lactic acid 3.0 with repeat 2.6. LFTs unremarkable. High styptic troponin 4.1, within normal limits. BNP is not elevated. Lipase is normal. Procalcitonin within normal limits. TSH is normal. Respiratory BioFire was negative. Blood cultures were obtained. Case was discussed with Dr. Avendaño, [facility] hospitalist, who will evaluate the patient for admission. Further management per admitting team. Appreciate consultations/recommendations. Triage Nursing notes reviewed and agree them. Prior/external medical records reviewed Vital Signs: reviewed Differential diagnosis: Reactive airway disease, pneumonia, pneumothorax, COPD, CHF, infections, cardiac ischemia, pulmonary embolism, musculoskeletal, gastrointestinal, as well as other pathologies. ER treatment provided: See below. Diagnostics interpreted by me: ECG: Sinus tachycardia, 108 bpm, no ectopy, no overt ST ovation or depression, QTc 415, QRS 82. Cardiac Monitoring: An order for continuous cardiac monitoring was placed and demonstrated sinus tachycardia, 108 bpm, no ectopy. Laboratory studies: See below Imaging studies: See below Consultation(s): Dr. Judge, hematology-oncology. Dr. Chilel, [facility] hospitalist. HPI: The patient is a pleasant 53-year-old gentleman with a past medical history of renal cell cancer status post nephrectomy and RLL medial lobe wedge resection 2/2 metastasis, CLL, hypertension, hyperlipidemia, type 2 diabetes, CKD who presents to the emergency department via walk-in referred by his oncology office for admission for management of pneumonia versus pneumonitis and ongoing hypoxia with minimal exertion. 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 Attempt at direct admission was pursued but due to current hospital census was referred to emergency department for assessment and admission. Patient is currently on levofloxacin and steroids following CTA of the chest last week, which was negative for PE but with evidence of pneumonia/pneumonitis. Patient has had a bad reaction to Bactrim in the past and so is not on this currently. Case was reviewed with the patient's oncologist, Dr. Judge. Pulmonology is aware and may consider bronchoscopy in the hospital. Agrees with plan for admission for further management. ROS: See above HPI for pertinent positives & negatives. A total of 10 systems reviewed and were otherwise negative. VITALS:See Below PHYSICAL EXAMINATION: GENERAL: Awake, alert, well-appearing, in no distress HENT: Normocephalic, atraumatic. Oropharynx unremarkable. EYES: Normal conjunctiva. Sclera non-icteric. NECK: Supple. No nuchal rigidity. FROM. No JVD. RESPIRATORY: Clear to auscultation. CARDIAC: Tachycardic rate, normal rhythm. Extremities warm and well perfused. Pulses equal. ABDOMEN: Soft, non-distended. No tenderness to palpation. No rebound or guarding. No masses. MUSCULOSKELETAL: Chest examination reveals no tenderness. The back is symmetrical on inspection without obvious abnormality. There is no CVA tenderness to palpation. No joint edema. LOWER EXTREMITIES: Calves are equal size bilaterally and non-tender. No edema. No discoloration. NEURO: Normal sensorium. No sensory or motor deficits noted. SKIN: No rash or jaundice noted. James Miguel MD Past Med/Surg History Problem List (Updated 07/05/24 @ 21:17 by James Miguel MD) Pneumonitis (Acute) Pneumonia (Acute) SOB (shortness of breath) on exertion (Acute) Thrombocytopenia Autoimmune hemolytic anemia Abnormal thyroid blood test Metastatic renal cell carcinoma to lung (Chronic) Chronic kidney disease with active medical management without dialysis, stage 3 (moderate) Insulin-requiring or dependent type II diabetes mellitus S/p nephrectomy CLL (chronic lymphocytic leukemia) (Acute) Renal cell cancer (Acute) Hypertension Hyperlipidemia Medical History Nodule of right lung Medication adverse effect Postoperative hypertension Hyponatremia (~02/23/24) History of COVID-19 Dx 10/2020: mild, no symptoms Surgical History S/p nephrectomy (12/09/23) L S/P partial lobectomy of lung (~01/20/24) RLL medial lobe wedge resection (pathology noting metastatic renal cell carcinoma) History of tooth extraction History of wisdom tooth extraction S/P arthroscopic knee surgery (2010) Right Family History Mother , 84yo Diabetes Heart disease Breast cancer Hypertension Father Diabetes Brother No problems noted. Sister No problems noted. Sister No problems noted. Son No problems noted. Other No family history of adverse response to anesthesia Denies family history of Ovarian cancer Prostate cancer Myocardial infarction Colorectal cancer Social History Smoking Status: Former smoker Tobacco Type: Smokeless Tobacco (Dip or Chew) Age Started Using Tobacco: 19; Cigarettes Per Day: 1/4 can per day; Smoking End Date: 07/05/24; Second Hand Exposure: No; Do You Dip or Chew Tobacco: Yes; Tobacco Cessation Education Requested by Patient: No Hx Alcohol Use: Yes Alcohol type: beer Hx Substance Use: No Preferred Language: Ukrainian Communication Ability: Effective Visual Impairment: No Limitations Hearing Ability: Normal Ear Pull Machine Operator Required: No Beliefs That Will Affect Care: None marital status: Single marital status details: Lives with Pauline. 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 [employer] How many Children do You have: 3 Feels Safe at Home: Yes Safety Concerns: Feels Safe At This Time Childhood Exposure to Second-Hand Smoke: Yes Diet: regular Diet Comment: regular caffeine: Yes (Soda x 2 per day Coffee x 2 per day.) during the past year weight has: remained stable Dental Care, Regularly: Yes Physical Activity Frequency: Daily Seatbelt Use: always Sunscreen Use: Yes Assistive Devices: None Allergies Allergies Allergy/AdvReac Type Severity Reaction Status Date / Time Iodinated Contrast Media Allergy Intermediate Skin Verified 07/05/24 10:36 redness sulfamethoxazole Allergy Intermediate Verified 07/05/24 10:36 [From Bactrim] trimethoprim [From Bactrim] Allergy Intermediate Verified 07/05/24 10:36 Home Meds Home Medications Medication Instructions Recorded Confirmed insulin NPH isoph U-100 human 100 16 unit subcut QAM 06/27/24 07/05/24 unit/mL (3 mL) subcutaneous pen (Humulin N NPH U-100 Insulin KwikPen) pantoprazole 40 mg tablet,delayed 40 mg PO DAILY 06/27/24 07/05/24 release (Protonix) prednisone 20 mg tablet 60 mg PO DAILY 06/27/24 07/05/24 albuterol sulfate 90 mcg/actuation 1 puff inhalation DIRECTED PRN 07/05/24 07/05/24 aerosol inhaler sob/wheezing Previous Rx's Medication Instructions Recorded empagliflozin 10 mg tablet 10 mg PO DAILY #90 tabs 12/22/23 (Jardiance) blood-glucose meter (OneTouch #1 ea 02/23/24 Verio Flex Meter) lancets 33 gauge (OneTouch Delica #100 ea 02/23/24 Plus Lancet) OneTouch Verio test strips (blood #200 ea 03/21/24 sugar diagnostic) blood-glucose sensor (Dexcom G7 #3 ea 03/21/24 Sensor device) pen needle, diabetic 32 gauge x #400 ea 04/02/24 5/32" (Pen Needle) losartan 50 mg tablet 50 mg PO QAM #90 tabs 04/09/24 insulin aspart U-100 100 unit/mL 20 unit (0.2 mL) subcut TID #30 mL 06/25/24 (3 mL) subcutaneous pen (Novolog FlexPen U-100 Insulin aspart) Results & Data (ED) Vital Signs Vital Signs - 24 hr 07/05/24 09:07 07/05/24 09:18 07/05/24 09:19 Temperature 36.7 C Temperature Source Temporal Artery Scan Pulse Rate 120 H 109 H Respiratory Rate 18 Blood Pressure 131/87 Blood Pressure Mean 101 Pulse Oximetry 92 90 Oxygen Delivery Method Room Air Room Air Sepsis New/Unexplained Change in Mental Status No Sepsis Action Taken by Nursing No Action Required 07/05/24 09:21 Temperature Temperature Source Pulse Rate 101 H Respiratory Rate 18 Blood Pressure Blood Pressure Mean Pulse Oximetry 93 Oxygen Delivery Method Room Air Sepsis New/Unexplained Change in Mental Status Sepsis Action Taken by Nursing Laboratory Data 07/05/24 09:30 07/05/24 09:30 Lab Results 07/05/24 07/05/24 07/05/24 Range/Units 09:30 09:37 09:44 WBC 8.65 (4.8-10.8) K/ul RBC 5.21 (4.70-6.10) M/uL Hgb 15.0 (14.0-18.0) g/dl POC Hgb 14.3 (14.0-18.0) g/dl Hct 43.4 (42.0-52.0) % POC Hct 42 (42-52) % MCV 83.3 (80.0-100.0) fL MCH 28.8 (25.0-34.0) pg MCHC 34.6 (32.0-36.0) g/dL RDW Std Deviation 42.5 (36.4-46.3) fL RDW Coeff of Madhu 14.4 (11.5-14.5) % Plt Count 153 (130-400) K/uL MPV 9.8 (9.4-12.4) fL Immature Gran % (Auto) 2.0 % Neut % (Auto) 81.0 % Lymph % (Auto) 10.4 % Story % (Auto) 6.2 % Eos % (Auto) 0.2 % Baso % (Auto) 0.2 % Neut # (Auto) 7.00 H (1.40-6.50) K/uL Lymph # (Auto) 0.90 L (1.20-3.40) K/uL Story # (Auto) 0.54 (0.11-0.59) K/uL Eos # (Auto) 0.02 (0.00-0.50) K/uL Baso # (Auto) 0.02 (0.00-0.20) K/uL Immature Gran # (Auto) 0.17 (0.01-0.20) K/uL PT 10.2 (9.0-12.0) Seconds INR 0.9 (0.9-1.1) POC Sodium 139 (135-144) mmol/L Sodium 139 (136-145) mmol/L POC Potassium 4.1 (3.3-5.0) mmol/L Potassium 4.2 (3.5-5.1) mmol/L POC Chloride 105 (101-112) mmol/L Chloride 105 (98-107) mmol/L Carbon Dioxide 28 (21-32) mmol/L POC Total CO2 26 (24-31) mmol/L Anion Gap 6 (3-11) POC Anion Gap 13.0 L (16-25) mmol/L POC BUN 34 H (7-18) mg/dl BUN 29 H (6-23) mg/dl Creatinine 1.49 H (0.6-1.4) mg/dl POC Creatinine 1.6 H (0.6-1.3) mg/dl Est Cr Clr Drug Dosing 74.0 ml/min eGFR 56.12 BUN/Creatinine Ratio 19.5 (10-20) Glucose 101 H (70-99(Fasting)) mg/dl POC Glucose (other) 101 H (70-99) mg/dl Lactate (0.4-2.0) mmol/L Calcium 9.1 (8.6-10.3) mg/dl POC Ioniz Calcium Varun 1.15 (1.12-1.32) mmol/l Phosphorus 2.4 L (2.5-4.9) mg/dl Magnesium 2.3 (1.7-2.4) mg/dl Total Bilirubin 0.7 (0.2-1.0) mg/dl AST 27 (13-39) U/L ALT 37 (7-52) U/L Alkaline Phosphatase 54 (34-104) U/L Troponin I High Sens 4.1 (0-20) pg/ml C-Reactive Protein 1.22 H (0-0.5) mg/dl Total Protein 6.4 (6.0-8.3) gm/dl Albumin 4.0 (3.4-5.0) gm/dl Globulin 2.4 L (2.5-4.0) gm/dl Albumin/Globulin Ratio 1.7 (0.9-2) Lipase 35 (11-82) U/L Procalcitonin 0.06 (0-0.5) ng/ml TSH 0.408 (0.300-4.500) uIu/ml Urine Color Urine Appearance (Clear) Urine pH (4.5-7.5) Ur Specific Cyrus (1.000-1.030) Urine Protein (Negative) Urine Glucose (UA) (Negative) Urine Ketones (Negative) Urine Blood (Negative) Urine Nitrite (Negative) Urine Bilirubin (Negative) Urine Urobilinogen (Negative) Ur Leukocyte Esterase (Negative) Urine WBC (Auto) (0-5) /hpf Urine RBC (Auto) (0-2) /hpf U Hyaline Cast (Auto) (0-2) /lpf U Epithel Cells (Auto) (0-2) /hpf Urine Bacteria (Auto) (None Seen) Adenovirus (PCR) Not Detected (NotDetected) B. pertussis DNA (PCR) Not Detected (NotDetected) B.parapertussis DNA PCR Not Detected (NotDetected) C. pneumoniae DNA (PCR) Not Detected (NotDetected) Coronavirus OC43 (PCR) Not Detected (NotDetected) Coronavirus HKU1 (PCR) Not Detected (NotDetected) Coronavirus 229E (PCR) Not Detected (NotDetected) SARS-CoV-2 (PCR) Not Detected (NotDetected) Coronavirus NL63 (PCR) Not Detected (NotDetected) Human Metapneumovir PCR Not Detected (NotDetected) Influenza Type A (PCR) Not Detected (NotDetected) Influenza Type B (PCR) Not Detected (NotDetected) M. pneumoniae (PCR) Not Detected (NotDetected) Parainfluenza 1 (PCR) Not Detected (NotDetected) Parainfluenza 2 (PCR) Not Detected (NotDetected) Parainfluenza 3 (PCR) Not Detected (NotDetected) Parainfluenza 4 (PCR) Not Detected (NotDetected) RSV (PCR) Not Detected (NotDetected) Entero/Rhino (PCR) Not Detected (NotDetected) 07/05/24 07/05/24 Range/Units 10:22 10:39 WBC (4.8-10.8) K/ul RBC (4.70-6.10) M/uL Hgb (14.0-18.0) g/dl POC Hgb (14.0-18.0) g/dl Hct (42.0-52.0) % POC Hct (42-52) % MCV (80.0-100.0) fL MCH (25.0-34.0) pg MCHC (32.0-36.0) g/dL RDW Std Deviation (36.4-46.3) fL RDW Coeff of Madhu (11.5-14.5) % Plt Count (130-400) K/uL MPV (9.4-12.4) fL Immature Gran % (Auto) % Neut % (Auto) % Lymph % (Auto) % Story % (Auto) % Eos % (Auto) % Baso % (Auto) % Neut # (Auto) (1.40-6.50) K/uL Lymph # (Auto) (1.20-3.40) K/uL Story # (Auto) (0.11-0.59) K/uL Eos # (Auto) (0.00-0.50) K/uL Baso # (Auto) (0.00-0.20) K/uL Immature Gran # (Auto) (0.01-0.20) K/uL PT (9.0-12.0) Seconds INR (0.9-1.1) POC Sodium (135-144) mmol/L Sodium (136-145) mmol/L POC Potassium (3.3-5.0) mmol/L Potassium (3.5-5.1) mmol/L POC Chloride (101-112) mmol/L Chloride (98-107) mmol/L Carbon Dioxide (21-32) mmol/L POC Total CO2 (24-31) mmol/L Anion Gap (3-11) POC Anion Gap (16-25) mmol/L POC BUN (7-18) mg/dl BUN (6-23) mg/dl Creatinine (0.6-1.4) mg/dl POC Creatinine (0.6-1.3) mg/dl Est Cr Clr Drug Dosing ml/min eGFR BUN/Creatinine Ratio (10-20) Glucose (70-99(Fasting)) mg/dl POC Glucose (other) (70-99) mg/dl Lactate 3.0 H* (0.4-2.0) mmol/L Calcium (8.6-10.3) mg/dl POC Ioniz Calcium Varun (1.12-1.32) mmol/l Phosphorus (2.5-4.9) mg/dl Magnesium (1.7-2.4) mg/dl Total Bilirubin (0.2-1.0) mg/dl AST (13-39) U/L ALT (7-52) U/L Alkaline Phosphatase (34-104) U/L Troponin I High Sens (0-20) pg/ml C-Reactive Protein (0-0.5) mg/dl Total Protein (6.0-8.3) gm/dl Albumin (3.4-5.0) gm/dl Globulin (2.5-4.0) gm/dl Albumin/Globulin Ratio (0.9-2) Lipase (11-82) U/L Procalcitonin (0-0.5) ng/ml TSH (0.300-4.500) uIu/ml Urine Color Yellow Urine Appearance Clear (Clear) Urine pH 5.5 (4.5-7.5) Ur Specific Cyrus 1.018 (1.000-1.030) Urine Protein Trace H (Negative) Urine Glucose (UA) 3+ H (Negative) Urine Ketones Negative (Negative) Urine Blood Negative (Negative) Urine Nitrite Negative (Negative) Urine Bilirubin Negative (Negative) Urine Urobilinogen Negative (Negative) Ur Leukocyte Esterase Negative (Negative) Urine WBC (Auto) 0-5 (0-5) /hpf Urine RBC (Auto) 0-2 (0-2) /hpf U Hyaline Cast (Auto) 0-2 (0-2) /lpf U Epithel Cells (Auto) 0-2 (0-2) /hpf Urine Bacteria (Auto) None Seen (None Seen) Adenovirus (PCR) (NotDetected) B. pertussis DNA (PCR) (NotDetected) B.parapertussis DNA PCR (NotDetected) C. pneumoniae DNA (PCR) (NotDetected) Coronavirus OC43 (PCR) (NotDetected) Coronavirus HKU1 (PCR) (NotDetected) Coronavirus 229E (PCR) (NotDetected) SARS-CoV-2 (PCR) (NotDetected) Coronavirus NL63 (PCR) (NotDetected) Human Metapneumovir PCR (NotDetected) Influenza Type A (PCR) (NotDetected) Influenza Type B (PCR) (NotDetected) M. pneumoniae (PCR) (NotDetected) Parainfluenza 1 (PCR) (NotDetected) Parainfluenza 2 (PCR) (NotDetected) Parainfluenza 3 (PCR) (NotDetected) Parainfluenza 4 (PCR) (NotDetected) RSV (PCR) (NotDetected) Entero/Rhino (PCR) (NotDetected) Administered Medications Methylprednisolone 40 mg/ (Syringe) 0.64 mls @ 1.5 mls/min IV Q12 [facility] Stop: 08/04/24 20:59 Last Admin: 07/05/24 20:53 Dose: 1.5 mls/min Documented By: GUICHO Piperacillin Sod/Tazobactam Sod (Zosyn) 4.5 gm in 100 mls @ 25 mls/hr IV Q8H [facility]; Protocol Stop: 07/10/24 21:59 Last Admin: 07/05/24 20:59 Dose: 25 mls/hr Documented By: GUICHO Insulin Aspart (Insulin Aspart Per Unit Charge) 0 units SC ACHS [facility] Stop: 08/04/24 16:29 Last Admin: 07/05/24 20:43 Dose: Not Given Documented By: Admin: 07/05/24 17:41 Dose: 10 units Documented By: SHAQUILLE Co-signed By: VARGHESE Insulin Glargine (Lantus Per Unit Charge) 0 units SC HS [facility]; Protocol Stop: 08/04/24 20:59 Last Admin: 07/05/24 20:43 Dose: Not Given Documented By: KDL Discontinued Medications Atovaquone (Atovaquone 750 Mg/5 Ml Udc) 750 mg PO 1631 ONE Stop: 07/05/24 16:32 Last Admin: 07/05/24 17:43 Dose: 750 mg Documented By: SHAQUILLE Sodium Chloride (Nss) 1,000 mls @ 999 mls/hr IV .Q1H1M ONE Stop: 07/05/24 10:17 Last Infusion: 07/05/24 11:30 Dose: Infused Documented By: Admin: 07/05/24 09:27 Dose: 999 mls/hr Documented By: MMF Piperacillin Sod/Tazobactam Sod (Zosyn) 4.5 gm in 100 mls @ 200 mls/hr IV NOW STA; Protocol Stop: 07/05/24 16:40 Last Infusion: 07/05/24 18:02 Dose: Infused Documented By: Admin: 07/05/24 17:25 Dose: 200 mls/hr Documented By: SHAQUILLE Imaging Data Radiologist's Impression: Chest X-Ray 07/05/24 09:16 XR chest 1V portable CLINICAL HISTORY: Chest pain, nonspecific COMPARISON STUDY: 04/30/2024 FINDINGS: Stable mild cardiomegaly without pulmonary vascular congestion. There is interval mild stranding opacity at the left lung base. No other consolidation or pleural effusion. No pneumothorax. IMPRESSION: Atelectasis versus early pneumonia left lung base. ACT 112: Negative or not required by law. Electronically signed by: Aaron Barlow M.D. 07/05/2024 9:58 AM Discharge Plan Visit Data Chief Complaint: Shortness of Breath/Dyspnea Stated Complaint: SOB, CHEST TIGHT ED Provider: James Miguel Discharge Problem: SOB (shortness of breath) on exertion, Renal cell cancer, CLL (chronic lymphocytic leukemia), Pneumonia, Pneumonitis Patient Disposition: Admitted As Inpatient Discharge Instructions Interventions: ED Discharge Assessment Last Done: 07/05/24 13:49 Discharge Problem: Renal cell cancer Qualifiers: Laterality: unspecified laterality Qualified Code(s): C64.9 - Malignant neoplasm of unspecified kidney, except renal pelvis Pneumonia Qualifiers: Pneumonia type: due to unspecified organism Laterality: unspecified laterality Lung location: unspecified part of lung Qualified Code(s): J18.9 - Pneumonia, unspecified organism
[2024-07-05 09:50] LABS: iSTAT Creatinine 1.6 mg/dl (0.6-1.3); iSTAT Hemoglobin 14.3 g/dl (14.0-18.0); iSTAT Ionized Calcium 1.15 mmol/l (1.12-1.32); iSTAT Potassium 4.1 mmol/L (3.3-5.0)
--- NOTE | 2024-07-05 09:59 | XRay Report ---
XR chest 1V portable CLINICAL HISTORY: Chest pain, nonspecific COMPARISON STUDY: 04/30/2024 FINDINGS: Stable mild cardiomegaly without pulmonary vascular congestion. There is interval mild stra nding opacity at the left lung base. No other consolidation or pleural effusion. No pneumothorax. IMPRESSION: Atelectasis versus early pneumonia left lung base. ACT 112: Negative or not required by law. Electronically signed by: Aaron Barlow M.D. 07/05/2024 9:58 AM
[2024-07-05 10:10] LABS: Basophils # (auto) 0.02 K/uL (0.00-0.20); Basophils % (auto) 0.2 %; Eosinophils # (auto) 0.02 K/uL (0.00-0.50); Eosinophils % (auto) 0.2 %; Hematocrit (blood only) 43.4 % (42.0-52.0); Immature Granulocytes # (auto) 0.17 K/uL (0.01-0.20); Lymphocytes % (auto) 10.4 %; Mean Corpuscular Hemoglobin 28.8 pg (25.0-34.0); Mean Corpuscular Hgb Conc 34.6 g/dL (32.0-36.0); Mean Corpuscular Volume 83.3 fL (80.0-100.0); Mean Platelet Volume 9.8 fL (9.4-12.4); Monocytes # (auto) 0.54 K/uL (0.11-0.59); Monocytes % (auto) 6.2 %; Platelet Count 153 K/uL (130-400); RDW Coefficient of Variation 14.4 % (11.5-14.5); RDW Standard Deviation 42.5 fL (36.4-46.3); Red Blood Count 5.21 M/uL (4.70-6.10); White Blood Count 8.65 K/ul (4.8-10.8)
[2024-07-05 10:25] LABS: Albumin Globulin Ratio 1.7 (0.9-2); BUN Creatinine Ratio 19.5 (10-20); Bilirubin,Total 0.7 mg/dl (0.2-1.0); Calcium 9.1 mg/dl (8.6-10.3); Globulin 2.4 gm/dl (2.5-4.0); Magnesium 2.3 mg/dl (1.7-2.4); Phosphorus 2.4 mg/dl (2.5-4.9); Potassium 4.2 mmol/L (3.5-5.1); Total Protein 6.4 gm/dl (6.0-8.3)
[2024-07-05 10:31] LABS: Troponin I High Sensitivity 4.1 pg/ml (0-20)
[2024-07-05 10:40] LABS: INR 0.9 (0.9-1.1); Prothrombin Time 10.2 Seconds (9.0-12.0); Thyroid Stimulating Hormone 0.408 uIu/ml (0.300-4.500)
[2024-07-05 10:52] LABS: Adenovirus PCR Not Detected (NotDetected); Bordetella parapertussis PCR Not Detected (NotDetected); Bordetella pertussis PCR Not Detected (NotDetected); Chlamydia pneumoniae PCR Not Detected (NotDetected); Coronavirus 229E PCR Not Detected (NotDetected); Coronavirus CoV-2 (COVID19)PCR Not Detected (NotDetected); Coronavirus HKU1 PCR Not Detected (NotDetected); Coronavirus NL63 PCR Not Detected (NotDetected); Coronavirus OC43PCR Not Detected (NotDetected); Human Metapneumovirus PCR Not Detected (NotDetected); Influenza A PCR Not Detected (NotDetected); Influenza B PCR Not Detected (NotDetected); Mycoplasma pneumoniae PCR Not Detected (NotDetected); Parainfluenza Virus 1 PCR Not Detected (NotDetected); Parainfluenza Virus 2 PCR Not Detected (NotDetected); Parainfluenza Virus 3 PCR Not Detected (NotDetected); Parainfluenza Virus 4 PCR Not Detected (NotDetected); Respiratory Syncytial VirusPCR Not Detected (NotDetected); Rhinovirus/Enterovirus PCR Not Detected (NotDetected)
[2024-07-05 11:20] LABS: Appearance Urine Clear (Clear); Bacteria Urine Automated None Seen (None Seen); Bilirubin Urine Negative (Negative); Blood Urine Negative (Negative); Cast Urine Automated 0-2 /lpf (0-2); Color Urine Yellow; Epithelial Cell Urine Auto 0-2 /hpf (0-2); Glucose Urine UA 3+ (Negative); Ketones Urine Negative (Negative); Leukocyte Esterase Urine Negative (Negative); Nitrite Urine Negative (Negative); Protein Urine Trace (Negative); RBC Urine Automated 0-2 /hpf (0-2); Specific Gravity Urine 1.018 (1.000-1.030); Urobilinogen Urine Negative (Negative); WBC Urine Automated 0-5 /hpf (0-5); pH Urine 5.5 (4.5-7.5)
--- NOTE | 2024-07-05 11:30 | History & Physical Report ---
Date of Service July 05, 2024 Assessment & Plan (1) SOB (shortness of breath) on exertion: Plan: SOB on exertion in a patient with CLL, renal cell cancer Consult pulmonary Ordered sputum culture. NPO after midnight, Broch in AM. Concern over PJP pneumonia. (2) CLL (chronic lymphocytic leukemia): Plan: stable (3) Renal cell cancer: Plan: following with heme onc (4) Hypertension: Plan: resume home meds (5) Hyperlipidemia: Plan: resume home meds (6) Insulin-requiring or dependent type II diabetes mellitus: Plan: consulted glycemic control. (7) Chronic kidney disease with active medical management without dialysis, stage 3 (moderate): Plan: creatinine appears to be at baseline (8) Metastatic renal cell carcinoma to lung: History of Present Illness Chief Complaint: SOB Primary Care Provider: Marylou Nazario DO Mr. Fisher is a 53-year-old gentleman with history of CLL initially diagnosed around Aug, 2023, renal cell carcinoma s/p left nephrectomy on 12/09/2023 and right lower lobe wedge resection on 01/20/2024. He subsequently received cycle 1 of immunotherapy with ipilimumab/nivolumab on 02/17/2024 but developed immunotherapy induced high-grade fever, transaminitis, rash, shortness of breath and thrombocytopenia necessitating inpatient hospitalization and high-dose steroids. Patient has intermittently has been on high dose steroids over 3 month, recently upped to 60 mg. Patient has not been on Pneumocystis Pneumonia prophylaxis. He has not been able to tolerate Bactrim as oncern that he had pancytopenia, however, this could be secondary to immunotherapy.. And he had never filled the subsequent medication due to insurance approval. Patient over the past 2 weeks, developed a dry cough and worsening SOB upone exertion which prompted him to come to the ED> Allergies Allergy/AdvReac Type Severity Reaction Status Date / Time Iodinated Contrast Media Allergy Intermediate Skin Verified 07/05/24 10:36 redness sulfamethoxazole Allergy Intermediate Verified 07/05/24 10:36 [From Bactrim] trimethoprim [From Bactrim] Allergy Intermediate Verified 07/05/24 10:36 Home Medications Medication Instructions Recorded Confirmed Type empagliflozin 10 mg tablet 10 mg PO DAILY #90 tabs 12/22/23 07/05/24 Rx (Jardiance) blood-glucose meter (TetrageneticsTouch #1 ea 02/23/24 06/04/24 Rx Verio Flex Meter) lancets 33 gauge (OneTouch Delica #100 ea 02/23/24 06/04/24 Rx Plus Lancet) OneTouch Verio test strips (blood #200 ea 03/21/24 06/04/24 Rx sugar diagnostic) blood-glucose sensor (Dexcom G7 #3 ea 03/21/24 06/04/24 Rx Sensor device) pen needle, diabetic 32 gauge x #400 ea 04/02/24 06/04/24 Rx 5/32" (Pen Needle) losartan 50 mg tablet 50 mg PO QAM #90 tabs 04/09/24 07/05/24 Rx insulin aspart U-100 100 unit/mL 20 unit (0.2 mL) subcut TID #30 mL 06/25/24 07/05/24 Rx (3 mL) subcutaneous pen (Novolog FlexPen U-100 Insulin aspart) insulin NPH isoph U-100 human 100 16 unit subcut QAM 06/27/24 07/05/24 History unit/mL (3 mL) subcutaneous pen (Humulin N NPH U-100 Insulin KwikPen) pantoprazole 40 mg tablet,delayed 40 mg PO DAILY 06/27/24 07/05/24 History release (Protonix) prednisone 20 mg tablet 60 mg PO DAILY 06/27/24 07/05/24 History albuterol sulfate 90 mcg/actuation 1 puff inhalation DIRECTED PRN 07/05/24 07/05/24 History aerosol inhaler sob/wheezing Past Med/Surg History Problem List Acute respiratory failure with hypoxia Pneumonitis (Acute) Pneumonia (Acute) SOB (shortness of breath) on exertion (Acute) Thrombocytopenia Autoimmune hemolytic anemia Abnormal thyroid blood test Metastatic renal cell carcinoma to lung (Chronic) Chronic kidney disease with active medical management without dialysis, stage 3 (moderate) Insulin-requiring or dependent type II diabetes mellitus S/p nephrectomy CLL (chronic lymphocytic leukemia) (Acute) Renal cell cancer (Acute) Hypertension Hyperlipidemia Medical History Nodule of right lung Medication adverse effect Postoperative hypertension Hyponatremia (~02/23/24) History of COVID-19 Dx 10/2020: mild, no symptoms Surgical History S/p nephrectomy (12/09/23) L S/P partial lobectomy of lung (~01/20/24) RLL medial lobe wedge resection (pathology noting metastatic renal cell carcinoma) History of tooth extraction History of wisdom tooth extraction S/P arthroscopic knee surgery (2010) Right Family History Mother , 84yo Diabetes Heart disease Breast cancer Hypertension Father Diabetes Brother No problems noted. Sister No problems noted. Sister No problems noted. Son No problems noted. Other No family history of adverse response to anesthesia Denies family history of Ovarian cancer Prostate cancer Myocardial infarction Colorectal cancer Social History Smoking Status: Former smoker Tobacco Type: Smokeless Tobacco (Dip or Chew) Age Started Using Tobacco: 19; Cigarettes Per Day: 1/4 can per day; Smoking End Date: 07/05/24; Second Hand Exposure: No; Do You Dip or Chew Tobacco: Yes; Tobacco Cessation Education Requested by Patient: No Hx Alcohol Use: Yes Alcohol type: beer Hx Substance Use: No Preferred Language: Greenlandic Communication Ability: Effective Visual Impairment: No Limitations Hearing Ability: Normal Director Bioinformatics Required: No Beliefs That Will Affect Care: None marital status: Single marital status details: Lives with Pauline. 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 [employer] How many Children do You have: 3 Feels Safe at Home: Yes Safety Concerns: Feels Safe At This Time Childhood Exposure to Second-Hand Smoke: Yes Diet: regular Diet Comment: regular caffeine: Yes (Soda x 2 per day Coffee x 2 per day.) during the past year weight has: remained stable Dental Care, Regularly: Yes Physical Activity Frequency: Daily Seatbelt Use: always Sunscreen Use: Yes Assistive Devices: None Review of Systems Constitutional: no fever and no body aches Eyes: no blind spots Ear, Nose, Mouth, Throat: no ear pain and no tinnitus Respiratory: + cough and + dyspnea Cardiovascular: no chest pain and no radiating jaw, neck or arm pain Gastrointestinal: no abdominal pain Musculoskeletal: no back pain Integumentary: no acne Neurologic: no gait abnormality Psychiatric: no behavioral changes and no anhedonia Endocrine: + fatigue Hematologic / Lymphatic: no easy bleeding Physical Exam Constitutional: WD/WN, vitals as above Eyes: PERRL, conjunctivae normal, anicteric sclerae ENMT: external ear and nose normal, oropharynx normal Neck: trachea midline, no thyromegaly Respiratory: clear except for bibasilar rales Cardiovascular: RRR, no murmur, no edema Gastrointestinal (Abdomen): normal bowel sounds, soft, nontender, no hepatosplenomegaly Musculoskeletal: no cyanosis or clubbing, extremities motor strength 5/5 Skin: no rashes, warm and dry Neurologic: PERRL, EOMI, accommodation nl, no face palsy, no dysarthria Psychiatric: A+Ox3, euthymic affect Lymphatic: no cervical or axillary lymphadenopathy Results & Data Results & Data Vital Signs (Past 12 Hours) Vital Signs Temp Pulse Pulse Resp BP BP Pulse Ox 07/05/24 11:01 106 H 23 168/105 H 93 07/05/24 09:21 101 H 18 93 07/05/24 09:19 90 07/05/24 09:18 109 H 07/05/24 09:07 36.7 C 120 H 18 131/87 92 O2 Del Method 07/05/24 11:01 Room Air 07/05/24 09:21 Room Air 07/05/24 09:19 Room Air 07/05/24 09:18 07/05/24 09:07 Room Air PG Care Time/CCT Total # of Minutes Spent Total Time Spent with Patient: Total time spent is greater than 50% in coordination of care (as documented) at patient's floor/unit and/or counseling patient: Coding Level of Care Code 31035 INT INP/OBS CARE 3/75MIN Diagnoses SOB (shortness of breath) on exertion R06.02 CLL (chronic lymphocytic leukemia) C91.10 Renal cell cancer C64.9 Hypertension I10 Hyperlipidemia E78.5 Insulin-requiring or dependent type II diabetes mellitus E11.9; Z79.4 Chronic kidney disease with active medical management without dialysis, stage 3 (moderate) N18.30 Metastatic renal cell carcinoma to lung C78.00; C64.9
[2024-07-05] MEDS ORDERED: LEVALBUTEROL 1.25 MG/3 ML NEB NEB PRN (11:31)
--- NOTE | 2024-07-05 11:47 | Pulmonary Consultation ---
Date of Consultation July 05, 2024 Assessment & Plan (1) Pneumonitis: (2) Pneumonia: Laterality: unspecified laterality Lung location: unspecified part of lung Pneumonia type: due to unspecified organism Qualified Code(s): J 18.9 - Pneumonia, unspecified organism (3) SOB (shortness of breath) on exertion: (4) Acute respiratory failure with hypoxia: (5) CLL (chronic lymphocytic leukemia): (6) S/p nephrectomy: (7) Metastatic renal cell carcinoma to lung: (8) Chronic kidney disease with active medical management without dialysis, stage 3 (moderate): Plan CT chest 07/05/2024 personally reviewed: Linear atelectasis of the lingula Worsening of the patchy groundglass opacities bilateral lower lobes, more dense on the left lower lobe Focal bronchiectasis right lower lobe supradiaphragmatic No significant mediastinal lymphadenopathy -- Acute hypoxic respiratory failure Respiratory BioFire is negative for everything on 07/05/2024 Procalcitonin 0.06, nasal MRSA negative --History of CLL Got 1 cycle of nivolumab/ipilimumab on 03/07/2024 Was getting nebulized pentamadine as PJP prophylaxis --History of renal cell carcinoma Diagnosed 12/09 s/p left nephrectomy --Right lower lobe wedge resection nodule which was positive for renal cell carcinoma S/p SBRT Plan: CT chest to be done now N.p.o. postmidnight for bronchoscopy tomorrow Continue with steroids Continue with empiric antibiotics Patient is allergic to Bactrim, atovaquone would be the next line of treatment for empiric PJP coverage Case was discussed with primary team as well as oncology Please note the above document was generated using voice recognition software. It may contain grammatical, syntax or spelling errors.Any formal questions or concerns about the content, text or information contained within the body of this dictation should be directly addressed to the provider for clarification. History of Present Illness History of Present Illness 53-year-old male presented to the hospital for hypoxia Past medical history: CLL diagnosed August 2023, renal cell carcinoma s/p left nephrectomy 12/09, right lower lobe wedge resection 02/05/2024 Pulmonary consulted for hypoxia At the time of examination patient's girlfriend was in the room He was not any respiratory distress He was saturating 92-93% on room air. His saturation did go up to 96-97% when I was doing physical exam and asking him to take deep breaths Because of the reaction from the chemotherapy that regard, he was on high-dose prednisone starting February approximately 100 mg on a daily basis and was gradually titrated down, was on 40 mg on a daily basis before the current hypoxic events He was supposed to be on pentamadine nebulized weekly but he was not able to get the medication. The only travel history that he had this to [place]. Shortness of breath is mostly on exertion with hypoxia He has been treated with levofloxacin as an outpatient with showed clinical improvement. No fever, subjective chills No dysuria, no diarrhea No unusual headache or blurry vision No nausea or vomiting Social history: Smoked for only 4 years less than a pack a day, quit a long time ago. 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 [employer] Pets: Dog, no birds or poultry nearby Allergies Allergy/AdvReac Type Severity Reaction Status Date / Time Iodinated Contrast Media Allergy Intermediate Skin Verified 07/05/24 10:36 redness sulfamethoxazole Allergy Intermediate Verified 07/05/24 10:36 [From Bactrim] trimethoprim [From Bactrim] Allergy Intermediate Verified 07/05/24 10:36 Home Medications Medication Instructions Recorded Confirmed Type empagliflozin 10 mg tablet 10 mg PO DAILY #90 tabs 12/22/23 07/05/24 Rx (Jardiance) blood-glucose meter (OneTouch #1 ea 02/23/24 06/04/24 Rx Verio Flex Meter) lancets 33 gauge (OneTouch Delica #100 ea 02/23/24 06/04/24 Rx Plus Lancet) OneTouch Verio test strips (blood #200 ea 03/21/24 06/04/24 Rx sugar diagnostic) blood-glucose sensor (Dexcom G7 #3 ea 03/21/24 06/04/24 Rx Sensor device) pen needle, diabetic 32 gauge x #400 ea 04/02/24 06/04/24 Rx 5/32" (Pen Needle) losartan 50 mg tablet 50 mg PO QAM #90 tabs 04/09/24 07/05/24 Rx insulin aspart U-100 100 unit/mL 20 unit (0.2 mL) subcut TID #30 mL 06/25/24 07/05/24 Rx (3 mL) subcutaneous pen (Novolog FlexPen U-100 Insulin aspart) insulin NPH isoph U-100 human 100 16 unit subcut QAM 06/27/24 07/05/24 History unit/mL (3 mL) subcutaneous pen (Humulin N NPH U-100 Insulin KwikPen) pantoprazole 40 mg tablet,delayed 40 mg PO DAILY 06/27/24 07/05/24 History release (Protonix) prednisone 20 mg tablet 60 mg PO DAILY 06/27/24 07/05/24 History albuterol sulfate 90 mcg/actuation 1 puff inhalation DIRECTED PRN 07/05/24 07/05/24 History aerosol inhaler sob/wheezing Patient History Medical History Nodule of right lung Medication adverse effect Postoperative hypertension Hyponatremia (~02/23/24) History of COVID-19 Dx 10/2020: mild, no symptoms Surgical History S/p nephrectomy (12/09/23) L S/P partial lobectomy of lung (~01/20/24) RLL medial lobe wedge resection (pathology noting metastatic renal cell carcinoma) History of tooth extraction History of wisdom tooth extraction S/P arthroscopic knee surgery (2010) Right Family History Mother , 84yo Diabetes Heart disease Breast cancer Hypertension Father Diabetes Brother No problems noted. Sister No problems noted. Sister No problems noted. Son No problems noted. Other No family history of adverse response to anesthesia Denies family history of Ovarian cancer Prostate cancer Myocardial infarction Colorectal cancer Social History Smoking Status: Former smoker Tobacco Type: Smokeless Tobacco (Dip or Chew) Age Started Using Tobacco: 19; Cigarettes Per Day: 1/4 can per day; Smoking End Date: 07/05/24; Second Hand Exposure: No; Do You Dip or Chew Tobacco: Yes; Tobacco Cessation Education Requested by Patient: No Hx Alcohol Use: Yes Alcohol type: beer Hx Substance Use: No Preferred Language: Lithuanian Communication Ability: Effective Visual Impairment: No Limitations Hearing Ability: Normal Environmental Field Office Manager Required: No Beliefs That Will Affect Care: None marital status: Single marital status details: Lives with Fiance'. 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 [employer] How many Children do You have: 3 Feels Safe at Home: Yes Safety Concerns: Feels Safe At This Time Childhood Exposure to Second-Hand Smoke: Yes Diet: regular Diet Comment: regular caffeine: Yes (Soda x 2 per day Coffee x 2 per day.) during the past year weight has: remained stable Dental Care, Regularly: Yes Physical Activity Frequency: Daily Seatbelt Use: always Sunscreen Use: Yes Assistive Devices: None Review of Systems 2 Review of Systems: All systems reviewed & are unremarkable except as noted in HPI & below Physical Exam 2 Physical Exam: Constitutional: No acute distress HEENT: EOMI, PERRLA Respiratory system: Good air entry bilaterally, no wheeze, no rhonchi, mild crackles bilateral lower lobes more on the right side CVS: S1-S2 positive, no murmurs or gallops Abdomen: Soft, nontender, nondistended, positive bowel sounds x4, obese Extremities: +2 pulses bilaterally radialis/ dorsalis pedis, no cyanosis, no edema Neuro: Awake alert oriented x3 Psych: Normal mood and affect G/U: No Bunch Skin: no rashes, warm and dry Lymphatic: no cervical or axillary lymphadenopathy Results & Data Results & Data Vital Signs (Past 12 Hours) Vital Signs Temp Pulse Pulse Resp BP BP Pulse Ox 07/05/24 11:01 106 H 23 168/105 H 93 07/05/24 09:21 101 H 18 93 07/05/24 09:19 90 07/05/24 09:18 109 H 07/05/24 09:07 36.7 C 120 H 18 131/87 92 O2 Del Method 07/05/24 11:01 Room Air 07/05/24 09:21 Room Air 07/05/24 09:19 Room Air 07/05/24 09:18 07/05/24 09:07 Room Air Laboratory Results 07/05/24 09:30 07/05/24 09:30 PG Care Time/CCT Total # of Minutes Spent Total Time Spent with Patient: Total time spent is greater than 50% in coordination of care (as documented) at patient's floor/unit and/or counseling patient: [place] [address] INT INP/OBS CARE 3/75MIN Patient Type New Diagnoses Pneumonitis J98.4 Pneumonia J18.9 Laterality: unspecified laterality Lung location: unspecified part of lung Pneumonia type: due to unspecified organism SOB (shortness of breath) on exertion R06.02 Acute respiratory failure with hypoxia J96.01 CLL (chronic lymphocytic leukemia) C91.10 S/p nephrectomy Z90.5 Metastatic renal cell carcinoma to lung C78.00; C64.9 Chronic kidney disease with active medical management without dialysis, stage 3 (moderate) N18.30
[2024-07-05] MEDS ORDERED: DEXTROSE 50% 50 ML SYRINGE IV PRN (11:58)
[2024-07-05] MEDS ORDERED: GLUCOSE 40% GEL 15 GM TUBE PO PRN (11:58)
[2024-07-05] MEDS ORDERED: GLUCOSE 10 TAB/TUBE PO PRN (11:58)
[2024-07-05] MEDS ORDERED: CARBOHYDRATES FOR HYPOGLYCEMIA PO PRN (11:58)
[2024-07-05] MEDS ORDERED: GLUCAGON FOR INJ 1 MG VIAL SQ PRN (11:58)
[2024-07-05 12:19] LABS: C Reactive Protein 1.22 mg/dl (0-0.5)
--- NOTE | 2024-07-05 12:33 | CT Scan Report ---
CT OF THE CHEST WITHOUT IV CONTRAST CLINICAL HISTORY: Hypoxia. COMPARISON STUDY: Chest CT June 28, 2024. Chest radiograph July 05, 2024. CT DOSE: 852.71 mGy.cm TECHNIQUE: Axial images of the chest were obtained without IV contrast. Images were reviewed in the axial, sagittal, and coronal planes. IV contrast was not administered for this examination. Automat ed exposure control was utilized for the study. A dose lowering technique was utilized adhering to t he principles of ALARA. FINDINGS: No enlarged axillary, mediastinal or hilar lymph nodes are present. There is no pericardia l effusion. Size of the heart is at the upper limits of normal. There is no pneumothorax or pleural e ffusion. A 3 cm subpleural airspace opacity within the anterior basal segment of the right lower lobe on image 172 of [address] of June 28, 2024. This is likely treatment related. There is associated volume loss. Lower lobe predominant groundglass opacities have mildly progressed since CT of June 28, 2024. Linear densities within the lungs favor atelectasis. There are stable postoper ative findings within the right middle lobe. Central airways are patent. A 5 mm subpleural nodule wit hin the right lower lobe on image 153 is again noted. There are no suspicious lesions within the bony thorax. A 2.1 cm right renal cyst is incidentally noted. IMPRESSION: 1. Mild progression of lower lobe groundglass opacities since CT of June 28, 2024. These are nonspec ific although likely infectious or inflammatory. Treatment related etiology is also within the differ ential. 2. No pneumothorax or pleural effusion. 3. No thoracic lymphadenopathy. 4. 3 cm subpleural opacity with volume loss within the right lower lobe which is likely treatment rel ated. ACT 112: Negative or not required by law. Electronically signed by: Ravinder Canela M.D. 07/05/2024 12:32 PM
[2024-07-05] MEDS ORDERED: NON-FORMULARY MEDICATION (Blood-Glucose Sensor [Dexcom G7 Sensor] device) SCH (13:48)
[2024-07-05] MEDS ORDERED: PHARMACY GLYCEMIC MGMT CONSULT PRN (13:48)
--- NOTE | 2024-07-05 14:36 | Electrocardiogram Report ---
Test Reason : Blood Pressure : */* mmHG Vent. Rate : 108 BPM Atrial Rate : 108 BPM P-R Int : 158 ms QRS Dur : 82 ms QT Int : 310 ms P-R-T Axes : 63 12 75 degrees QTcB Int : 415 ms Sinus tachycardia Abnormal ECG When compared with ECG of 27-Jun-2024 15:41, No significant change was found Confirmed by Damir Storm ([id number]) on 07/05/2024 2:35:57 PM Referred By: REFERRED SELF Confirmed By: Damir Storm
--- NOTE | 2024-07-05 14:37 | Pharmacy Report ---
Pharmacy Glycemic Short Note 2 - Date of Service July 05, 2024 - Glycemic Short BSG Results (Last 24 hours): 07/05/24 07/05/24 07/05/24 09:30 09:37 13:10 Glucose 101 H POC Glucose 154 H POC Glucose (other) 101 H OUTPATIENT ANTIDIABETIC REGIMEN: * NPH 16 units SC qAM * Novolog 20 units SC TIDM * Jardiance 10 mg PO daily HbA1c: 6.5% (06/19/24) ASSESSMENT: * SN is a 53 year old male w/ history of CLL, renal cell carcinoma (s/p left nephrectomy), and T2DM * Confirmed w/ RN, patient did administer NPH and pre-breakfast Novolog this morning prior to admission * Blood sugar of 154 mg/dL at time of consult * NPO after midnight for bronchoscopy on 07/06/24 * Prednisone 60 mg PO daily (given prior to admission), now ordered methylprednisolone 40 mg IV q12h * Patient required aggressive Novolog parameters (CF of 15 and carb ratio of 5) while on 1000 mg of Solu-medrol in April 2024 PLAN FOR INPATIENT GLYCEMIC CONTROL: * Hold outpatient oral diabetes medications * Basal insulin * Lantus 0-5-10 units SQ HS (see protocol text) * Reassess in AM * Bolus insulin * NovoLog per scale ACHS or Q6hrs while NPO * Goal Range: Low 110 mg/dL - High 140 mg/dL * Correction Factor: 20 mg/dL/unit * Nutritional / Prandial insulin per carb ratio of 1 unit per 6 grams CHO consumed
[2024-07-05] MEDS: 4.5GM X1 IV STA (17:25)
[2024-07-05] MEDS: INSULIN ASPART PER UNIT CHARGE SC SCH (17:41)
[2024-07-05] MEDS: ATOVAQUONE 750 MG/5 ML UDC PO ONE (17:43)
--- NOTE | 2024-07-05 18:34 | Ultrasound Report ---
EXAM: US venous doppler LE BI CLINICAL HISTORY: R/o DVT TECHNIQUE: Ultrasound examination of bilateral lower extremity veins was performed in real time and duplex. One or more of the following were performed- spectral analysis, resistive index, waveform analysis, and pulsed Doppler. COMPARISON: None. FINDINGS: Normal phasic, non-pulsatile and spontaneous flow is noted in bilateral common femoral, superficial femoral, popliteal, anterior andd posterior tibial and peroneal veins. Visualized veins of both lower extremities demonstrate normal compressibility. No sonographic evidence of acute deep vein thrombosis (DVT) is detected in the visualized veins of both lower extremities. Compression and Augmentation: All evaluated veins compress fully with applied transducer pressure. Augmentation of venous flow is noted with distal compression. Additional Findings: No evidence of intraluminal thrombus. IMPRESSION: No sonographic evidence of acute DVT detected in bilateral common femoral, superficial femoral, popliteal, anterior and posterior tibial and peroneal veins, at the time of examination. Disclaimer: DVT could be missed early in the disease when clot burden is minimal. For patients with moderate and high pretest probability of DVT and negative ultrasound, the [employer] [employer] clinical guidelines recommend testing with a D-dimer assay or repeat ultrasound in 5-7 days. If symptoms worsen, the Society of radiologists in ultrasound recommends repeating ultrasound even earlier. Electronically signed by Arnie St 07-05-2024 6:33 PM
[2024-07-05] MEDS: LANTUS PER UNIT CHARGE SC SCH (20:43)
[2024-07-05] MEDS: methylPREDNISolone 40 MG in SYRINGE 0 ML IV SCH (20:53)
[2024-07-05] MEDS: PIPERACILLIN/TAZOBACTAM 4.5 GM/100 ML BAG IV SCH (20:59)
[2024-07-05] MEDS ORDERED: methylPREDNISolone 1000 MG/16 ML IV SCH (21:00)
[2024-07-06 06:42] LABS: BUN Creatinine Ratio 16.6 (10-20); C Reactive Protein 1.05 mg/dl (0-0.5); Creatinine Clr Calc Pharmacy 69.6 ml/min; Potassium 4.5 mmol/L (3.5-5.1)
--- NOTE | 2024-07-06 07:40 | Pulmonology Progress Note ---
Date of Service July 06, 2024 Assessment & Plan (1) Pneumonitis: (2) Pneumonia: Laterality: unspecified laterality Lung location: unspecified part of lung Pneumonia type: due to unspecified organism Qualified Code(s): J 18.9 - Pneumonia, unspecified organism (3) SOB (shortness of breath) on exertion: (4) Acute respiratory failure with hypoxia: (5) CLL (chronic lymphocytic leukemia): (6) S/p nephrectomy: (7) Metastatic renal cell carcinoma to lung: (8) Chronic kidney disease with active medical management without dialysis, stage 3 (moderate): Plan CT chest 07/05/2024 personally reviewed: Linear atelectasis of the lingula Worsening of the patchy groundglass opacities bilateral lower lobes, more dense on the left lower lobe Focal bronchiectasis right lower lobe supradiaphragmatic No significant mediastinal lymphadenopathy -- Acute hypoxic respiratory failure Respiratory BioFire is negative for everything on 07/05/2024 Procalcitonin 0.06, nasal MRSA negative LDH 335, CRP 1.05, ESR 17 BNP 19 --History of CLL Got 1 cycle of nivolumab/ipilimumab on 03/07/2024 Was getting nebulized pentamadine as PJP prophylaxis --History of renal cell carcinoma Diagnosed 12/09 s/p left nephrectomy --Right lower lobe wedge resection nodule which was positive for renal cell carcinoma S/p SBRT Plan: For bronchoscopy today Continue with steroids, empiric antibiotics as well as atovaquone for empiric PJP coverage Risk and benefit of the procedure explained to the patient in depth. Patient understands and wants to go ahead with the procedures Consent signed, witnessed and put in the chart Please note the above document was generated using voice recognition software. It may contain grammatical, syntax or spelling errors.Any formal questions or concerns about the content, text or information contained within the body of this dictation should be directly addressed to the provider for clarification. Admission and Anticipated Discharge Date Admission Date: July 05, 2024 Subjective Patient seen and examined at bedside. No acute distress, no adverse events overnight Coughing up clear phlegm Denies any chest pain No nausea vomiting He did get first dose of atovaquone last night Review of Systems 2 Review of Systems: All systems reviewed & are unremarkable except as noted in Subjective Physical Exam 2 Physical Exam: Constitutional: No acute distress HEENT: EOMI, PERRLA Respiratory system: Good air entry bilaterally, no wheeze, no rhonchi, mild crackles bilateral lower lobes more on the right side CVS: S1-S2 positive, no murmurs or gallops Abdomen: Soft, nontender, nondistended, positive bowel sounds x4, obese Extremities: +2 pulses bilaterally radialis/ dorsalis pedis, no cyanosis, no edema Neuro: Awake alert oriented x3 Psych: Normal mood and affect G/U: No Bunch Skin: no rashes, warm and dry Lymphatic: no cervical or axillary lymphadenopathy Results & Data Results & Data Vital Signs (Past 12 Hours) Vital Signs Temp Pulse Pulse Resp BP Pulse Ox O2 Del Method 07/06/24 07:18 90 14 143/90 H 93 Room Air 07/06/24 03:01 36.5 C 88 18 127/80 95 Room Air 07/05/24 22:57 36.6 C 88 16 125/84 96 Nasal Cannula 07/05/24 22:03 91 H 07/05/24 21:00 Nasal Cannula 07/05/24 20:50 36.6 C 100 H 16 145/84 H 97 Nasal Cannula O2 Flow Rate 07/06/24 07:18 07/06/24 03:01 07/05/24 22:57 1 07/05/24 22:03 07/05/24 21:00 2 07/05/24 20:50 2 Laboratory Results 07/05/24 09:30 07/06/24 05:44 PG Care Time/CCT Total # of Minutes Spent Total Time Spent with Patient: Total time spent is greater than 50% in coordination of care (as documented) at patient's floor/unit and/or counseling patient: Coding Level of Care Code 06928 SUB INP/OBS CARE 3/50MIN Diagnoses Pneumonitis J98.4 Pneumonia J18.9 Laterality: unspecified laterality Lung location: unspecified part of lung Pneumonia type: due to unspecified organism SOB (shortness of breath) on exertion R06.02 Acute respiratory failure with hypoxia J96.01 CLL (chronic lymphocytic leukemia) C91.10 S/p nephrectomy Z90.5 Metastatic renal cell carcinoma to lung C78.00; C64.9 Chronic kidney disease with active medical management without dialysis, stage 3 (moderate) N18.30
--- NOTE | 2024-07-06 08:16 | Pre Anesthesia Assessment ---
Date of Service July 06, 2024 Pre Sedation Assessment Vital Signs Temp Pulse Pulse Resp BP BP BP 07/06/24 07:18 90 14 143/90 H 07/06/24 03:01 36.5 C 88 18 127/80 07/05/24 22:57 36.6 C 88 16 125/84 07/05/24 22:03 91 H 07/05/24 21:00 07/05/24 20:50 36.6 C 100 H 16 145/84 H 07/05/24 16:30 07/05/24 16:19 07/05/24 15:34 36.6 C 97 H 18 143/96 H 07/05/24 13:28 89 07/05/24 13:00 96 H 18 139/89 07/05/24 12:00 92 H 13 136/87 07/05/24 11:01 106 H 23 168/105 H 07/05/24 09:21 101 H 18 07/05/24 09:19 07/05/24 09:18 109 H 07/05/24 09:07 36.7 C 120 H 18 131/87 Pulse Ox O2 Del Method O2 Flow Rate 07/06/24 07:18 93 Room Air 07/06/24 03:01 95 Room Air 07/05/24 22:57 96 Nasal Cannula 1 07/05/24 22:03 07/05/24 21:00 Nasal Cannula 2 07/05/24 20:50 97 Nasal Cannula 2 07/05/24 16:30 Nasal Cannula 2 07/05/24 16:19 97 Nasal Cannula 2 07/05/24 15:34 91 Room Air 07/05/24 13:28 07/05/24 13:00 93 Room Air 07/05/24 12:00 93 Room Air 07/05/24 11:01 93 Room Air 07/05/24 09:21 93 Room Air 07/05/24 09:19 90 Room Air 07/05/24 09:18 07/05/24 09:07 92 Room Air Pre-Sedation Airway Assessment Smoking Status: Former smoker Hx Sleep Apnea: No Short, Thick Neck: No Thyromental Distance: > or= 3.5 Finger Breadths Oral Cavity: + WNL Mallampati Class: III ASA: ASA3 NPO Status Date of Last Intake of Fluids: 07/05/24 Time of Last Intake of Fluids: 17:00 Date of Last Intake of Solid Food: 07/05/24 Time of Last Intake of Solid Foods: 17:00 Procedure Planning Contraindications for Sedation: none Current Medications Reviewed: Yes Notes The planned sedation has been discussed with the patient. Informed Consent was obtained. I have identified the patient, determined the appropriateness of sedation and have assessed the patient immediately prior to the procedure. All medicine(s) and interventions are by my order.
[2024-07-06 08:18] LABS: Estimated Average Glucose 157 mg/dl; Hemoglobin A1C 7.1 % (4.5-5.6)
--- NOTE | 2024-07-06 08:43 | Procedure Note ---
Procedure Note Date of Service July 06, 2024 PREOPERATIVE DIAGNOSIS: Groundglass opacities bilaterally POSTOPERATIVE DIAGNOSIS: Groundglass opacities bilaterally PROCEDURE PERFORMED: Flexible fiberoptic bronchoscopy with bronchoalveolar lavage COMPLICATIONS: None. INDICATION: Rule out opportunistic infections PROCEDURE: After obtaining an informed consent, the patient was brought to the Bronchoscopy Suite. The patient had appropriate oxygen, blood pressure, heart rate, and respiratory rate monitoring applied and monitored continuously throughout the procedure. Supplemental oxygen via nasal cannula as per nursing records was applied to the nasopharynx with adequate saturations achieved. Topical anesthesia with nebulized 1% lidocaine was achieved. Subsequent to this, the patient was premedicated with 4 mg of midazolam and 100 mcg of fentanyl. Upper Airway: The oropharynx and larynx were well visualized and showed mild erythema. There was almost total concentric closure of the upper airway going towards high probability of sleep apnea. There was normal vocal cord motion without masses or lesions. Additional topical anesthesia with 1% lidocaine was applied to the trachea and mike. The trachea appeared normal.The bronchoscope was then advanced through the mike, which was sharp. The scope was then advanced into the right main stem and each segment, subsegement in the right upper lobe, right middle lobe and right lower lobe were visualized. There was minimal amount of clear white secretion which were suctioned out. There were no other findings including evidence of mass, anatomic distortions, or hemorrhage. The bronchoscope was subsequently withdrawn and advanced into the left mainstem. Again, each segment and subsegment was well visualized. No specific masses or other lesions were identified throughout the tracheobronchial tree on the left. There was minimal amount of clear secretion which were suctioned out. The bronchoscope was then wedged in the left lower lobe lateral segment and bronchoalveolar lavage samples were obtained. 90 ml of saline was instilled and 40 ml of fluid was aspirated back.The bronchoscope was withdrawn and the area was suctioned clear. The bronchoscope was then wedged in the left upper lobe lingula and bronchoalveolar lavage samples were obtained. 60 ml of saline was instilled and 30 ml of fluid was aspirated back.The bronchoscope was withdrawn and the area was suctioned clear. The bronchoscope was then withdrawn to the mainstem. The area was suctioned clear. The bronchoscope was then withdrawn. The patient tolerated the procedure well without evidence of desaturation or complications. Bronchoalveolar lavage samples were sent for cell count, Gram stain and bacterial culture, AFB culture and smear, fungal culture and smear, histoplasma, Coccidioides, PJP, cryptococcusand cytology. Recommendations: Follow-up micro and cytology Follow-up chest x-ray Please note the above document was generated using voice recognition software. It may contain grammatical, syntax or spelling errors.Any formal questions or concerns about the content, text or information contained within the body of thi s dictation should be directly addressed to the provider for clarification. [facility] [place] Procedure Codes (Charges) Pulmonary/Thoracic Procedure 1: Pulmonary and Thoracic: 50881 Dx bronchoscopy/BAL Sedation/Anesthesia Procedure 1: Sedation/Anesthesia: 49060 Mod Sedation by the same physician;Init15 Min Child Age 5 & Up Coding CPT Codes Pulmonary/Thoracic - Pulmonary and Thoracic: 61978 Dx bronchoscopy/BAL ([id number]) Sedation/Anesthesia - Sedation/Anesthesia: 87331 Mod Sedation by the same physician;Init15 Min Child Age 5 & Up ([id number]) Additional Codes Date of Service ([facility].SURGERY)
--- NOTE | 2024-07-06 08:46 | Post Anesthesia Assessment ---
Date of Service July 06, 2024 Post Sedation Assessment Vital Signs Temp Pulse Pulse Resp BP BP BP 07/06/24 08:30 103 H 14 178/118 H 07/06/24 08:25 124 H 14 178/118 H 07/06/24 08:22 80 14 145/99 H 07/06/24 07:18 90 14 143/90 H 07/06/24 03:01 36.5 C 88 18 127/80 07/05/24 22:57 36.6 C 88 16 125/84 07/05/24 22:03 91 H 07/05/24 21:00 07/05/24 20:50 36.6 C 100 H 16 145/84 H 07/05/24 16:30 07/05/24 16:19 07/05/24 15:34 36.6 C 97 H 18 143/96 H 07/05/24 13:28 89 07/05/24 13:00 96 H 18 139/89 07/05/24 12:00 92 H 13 136/87 07/05/24 11:01 106 H 23 168/105 H 07/05/24 09:21 101 H 18 07/05/24 09:19 07/05/24 09:18 109 H 07/05/24 09:07 36.7 C 120 H 18 131/87 Pulse Ox O2 Del Method O2 Flow Rate 07/06/24 08:30 98 Oxymask 8 07/06/24 08:25 97 Oxymask 8 07/06/24 08:22 99 Oxymask 8 07/06/24 07:18 93 Room Air 07/06/24 03:01 95 Room Air 07/05/24 22:57 96 Nasal Cannula 1 07/05/24 22:03 07/05/24 21:00 Nasal Cannula 2 07/05/24 20:50 97 Nasal Cannula 2 07/05/24 16:30 Nasal Cannula 2 07/05/24 16:19 97 Nasal Cannula 2 07/05/24 15:34 91 Room Air 07/05/24 13:28 07/05/24 13:00 93 Room Air 07/05/24 12:00 93 Room Air 07/05/24 11:01 93 Room Air 07/05/24 09:21 93 Room Air 07/05/24 09:19 90 Room Air 07/05/24 09:18 07/05/24 09:07 92 Room Air Discharge Sedation Level of Care: Fast Track Phase II Post Sedation Plan On clinical assessment, the patient appears to have tolerated the sedation without complications. Patient is recovering as anticipated. Patient will continue to be monitored by nursing and may be discharged when sedation discharge criteria are met per below protocol. Upon Completions of procedure up to 15 minutes continue every 5 minute vital s igns and the P.A.R. score; then discharge to a Phase I or Fast Track to Phase II per the following guidelines: * Discharge Patient to appropriate Phase II area if PAR is 8 or greater or return to pre- procedure baseline. The post - procedure orders will be as directed. * If PAR score is less than 8 or not return to pre-procedure baseline then patient will follow Phase I monitoring till PAR is reached for Phase II. The Phase I may be done in procedure room or may call to secure a Phase I area. * If naloxone or flumazenil are used for reversal, hold in Phase I for continued monitoring from when last reversal dose was given for a minimum of 60 minutes or longer pending the nurse and/or physician discretion of patient condition before discharge to Phase II. Please call the Sedation Physician to re-evaluate and complete post-note for discharge to Phase II area. Do NOT discharge from procedure sedation or Phase 1 until post- sedation evaluation note is complete by procedure /sedation MD Sedation Discharge Instructions to be given to the patient at discharge to home.
[2024-07-06] MEDS: MIDAZOLAM HCL 5 MG/ML 1 ML VIAL ONE (08:49)
[2024-07-06] MEDS: fentaNYL citrate PF 100 MCG/2 ML VIAL ONE (08:49)
[2024-07-06] MEDS ORDERED: predniSONE 20 MG TAB PO SCH (09:00)
--- NOTE | 2024-07-06 09:14 | XRay Report ---
XR chest 1V portable CLINICAL HISTORY: post bronch COMPARISON STUDY: 07/05/2024 FINDINGS: Stable mild cardiomegaly without pulmonary vascular congestion. There is stable stranding o pacity at the left lung base. No new consolidation or pleural effusion. No pneumothorax. IMPRESSION: No pneumothorax seen. ACT 112: Negative or not required by law. Electronically signed by: Aaron Barlow M.D. 07/06/2024 9:12 AM
[2024-07-06] MEDS: LOSARTAN POTASSIUM 50 MG TAB PO SCH (09:33)
[2024-07-06] MEDS: ATOVAQUONE 750 MG/5 ML UDC PO SCH (09:33)
[2024-07-06] MEDS: PANTOprazole 40 MG TAB PO SCH (09:33)
[2024-07-06 12:09] LABS: Fluid Mono/Macrophage 30 %; Lymphocyte Body Fluid Man 56 %; Neutrophil Body Fluid Man 14 %
[2024-07-06] MEDS: LANTUS PER UNIT CHARGE SC SCH (12:59)
--- NOTE | 2024-07-06 13:49 | Pharmacy Report ---
Pharmacy Glycemic Short Note 2 - Date of Service July 06, 2024 - Glycemic Short BSG Results (Last 24 hours): 07/05/24 07/05/24 07/06/24 16:20 20:39 05:44 Glucose 157 H POC Glucose 151 H 87 07/06/24 07/06/24 09:32 11:53 Glucose POC Glucose 152 H 160 H OUTPATIENT ANTIDIABETIC REGIMEN: * NPH 16 units SC qAM * Novolog 20 units SC TIDM * Jardiance 10 mg PO daily HbA1c: 6.5% (06/19/24) ASSESSMENT: 07/06: * BSGs 404-85-654-160mg/dL. Received 16 units (home basal) and 10 units of bolus insulin since admission yesterday. * Diet resumed this afternoon. Continues on methylpred 40mg IV q12h and zosyn. * Lantus 10 units X 1 this afternoon + HS scale depending on BSG. No change to Novolog parameters for now. 07/05: * SN is a 53 year old male w/ history of CLL, renal cell carcinoma (s/p left nephrectomy), and T2DM * Confirmed w/ RN, patient did administer NPH and pre-breakfast Novolog this morning prior to admission * Blood sugar of 154 mg/dL at time of consult * NPO after midnight for bronchoscopy on 07/06/24 * Prednisone 60 mg PO daily (given prior to admission), now ordered methylprednisolone 40 mg IV q12h * Patient required aggressive Novolog parameters (CF of 15 and carb ratio of 5) while on 1000 mg of Solu-medrol in April 2024 PLAN FOR INPATIENT GLYCEMIC CONTROL: * Hold outpatient oral diabetes medications * Basal insulin * Lantus 10 units X 1 + HS scale * Bolus insulin * NovoLog per scale ACHS or Q6hrs while NPO * Goal Range: Low 110 mg/dL - High 140 mg/dL * Correction Factor: 20 mg/dL/unit * Nutritional / Prandial insulin per carb ratio of 1 unit per 6 grams CHO consumed
--- NOTE | 2024-07-06 22:59 | Hospitalist Progress Note ---
Date of Service July 06, 2024 Assessment & Plan (1) SOB (shortness of breath) on exertion: Plan: SOB on exertion in a patient with CLL, renal cell cancer Consult pulmonary Ordered sputum culture. Patient tolerated bronchoscopy by pulmonary Awaiting lab results. Patient reports feeling better, now on atovaquone. will continue to monitor. discussed with pulmonary provider Concern over PJP pneumonia. (2) CLL (chronic lymphocytic leukemia): Plan: stable (3) Renal cell cancer: Plan: following with heme onc (4) Hypertension: Plan: resume home meds vitals stabel (5) Hyperlipidemia: Plan: resume home meds (6) Insulin-requiring or dependent type II diabetes mellitus: Plan: consulted glycemic control. (7) Chronic kidney disease with active medical management without dialysis, stage 3 (moderate): Plan: creatinine appears to be at baseline on 07/06 (8) Metastatic renal cell carcinoma to lung: Admission and Anticipated Discharge Date Admission Date: July 05, 2024 Subjective Patient reports feeling well he has no new complaints. He tolerated the bronch Physical Exam Constitutional: WD/WN, vitals as above Eyes: PERRL, conjunctivae normal, anicteric sclerae ENMT: external ear and nose normal, oropharynx normal Neck: trachea midline, no thyromegaly Skin: no rashes, warm and dry Psychiatric: A+Ox3, euthymic affect Lymphatic: no cervical or axillary lymphadenopathy Results & Data Results & Data Vital Signs (Past 12 Hours) Vital Signs Temp Pulse Pulse Resp BP Pulse Ox O2 Del Method 07/06/24 19:23 36.4 C L 102 H 18 136/87 95 Room Air 07/06/24 15:34 36.5 C 111 H 18 127/87 93 Room Air 07/06/24 15:29 112 H 07/06/24 15:15 100 H 07/06/24 15:15 Room Air PG Care Time/CCT Total # of Minutes Spent Total Time Spent with Patient: Total time spent is greater than 50% in coordination of care (as documented) at patient's floor/unit and/or counseling patient: Coding Level of Care Code 87353 SUB INP/OBS CARE 3/50MIN Diagnoses SOB (shortness of breath) on exertion R06.02 CLL (chronic lymphocytic leukemia) C91.10 Renal cell cancer C64.9 Laterality: unspecified laterality Hypertension I10 Hyperlipidemia E78.5 Insulin-requiring or dependent type II diabetes mellitus E11.9; Z79.4 Chronic kidney disease with active medical management without dialysis, stage 3 (moderate) N18.30 Metastatic renal cell carcinoma to lung C78.00; C64.9 (3) Renal cell cancer Laterality: unspecified laterality Qualified Code(s): C64.9 - Malignant neoplasm of unspecified kidney, except renal pelvis
[2024-07-07 05:59] LABS: Hematocrit (blood only) 42.4 % (42.0-52.0); Hemoglobin 14.8 g/dl (14.0-18.0); Mean Corpuscular Hemoglobin 28.5 pg (25.0-34.0); Mean Corpuscular Hgb Conc 34.9 g/dL (32.0-36.0); Mean Corpuscular Volume 81.7 fL (80.0-100.0); Mean Platelet Volume 9.3 fL (9.4-12.4); Platelet Count 143 K/uL (130-400); RDW Coefficient of Variation 14.4 % (11.5-14.5); RDW Standard Deviation 41.1 fL (36.4-46.3); Red Blood Count 5.19 M/uL (4.70-6.10); White Blood Count 8.53 K/ul (4.8-10.8)
[2024-07-07 06:14] LABS: BUN Creatinine Ratio 17.2 (10-20); Calcium 9.2 mg/dl (8.6-10.3); Creatinine Clr Calc Pharmacy 69.8 ml/min; Potassium 4.4 mmol/L (3.5-5.1)
[2024-07-07 07:35] VITALS: RESP 18
--- NOTE | 2024-07-07 07:36 | Pulmonology Progress Note ---
Date of Service July 07, 2024 Assessment & Plan (1) Pneumonitis: (2) Pneumonia: Laterality: unspecified laterality Lung location: unspecified part of lung Pneumonia type: due to unspecified organism Qualified Code(s): J 18.9 - Pneumonia, unspecified organism (3) SOB (shortness of breath) on exertion: (4) Acute respiratory failure with hypoxia: (5) CLL (chronic lymphocytic leukemia): (6) S/p nephrectomy: (7) Metastatic renal cell carcinoma to lung: (8) Chronic kidney disease with active medical management without dialysis, stage 3 (moderate): Plan CT chest 07/05/2024 personally reviewed: Linear atelectasis of the lingula Worsening of the patchy groundglass opacities bilateral lower lobes, more dense on the left lower lobe Focal bronchiectasis right lower lobe supradiaphragmatic No significant mediastinal lymphadenopathy -- S/p acute hypoxic respiratory failure Respiratory BioFire is negative for everything on 07/05/2024 Procalcitonin 0.06, nasal MRSA negative LDH 335, CRP 1.05, ESR 17 BNP 19 S/p bronchoscopy 07/06/2024 Follow-up cytology as well as micro --History of CLL Got 1 cycle of nivolumab/ipilimumab on 03/07/2024 Was getting nebulized pentamadine as PJP prophylaxis --History of renal cell carcinoma Diagnosed 12/09 s/p left nephrectomy --Right lower lobe wedge resection nodule which was positive for renal cell carcinoma S/p SBRT Plan: Chest x-ray from today shows improvement in alveolar opacities compared to before, left lower lobe atelectasis/scarring versus Continue empiric antibiotics as well as atovaquone for empiric PJP coverage for total of 10 days Prednisone 40mg BID for 5 days, then 40mg BID for 5 days then 20mg for total of 10 days. He should see Dr. Judge in the interim Azithromycin for 5 days I will give patient a call when we have the final results of the bronchoscopy Based on bronchoscopy patient does have high probability of sleep apnea, I highly recommend him to get outpatient polysomnography Case was discussed with primary team as well as Dr. Judge Please note the above document was generated using voice recognition software. It may contain grammatical, syntax or spelling errors.Any formal questions or concerns about the content, text or information contained within the body of this dictation should be directly addressed to the provider for clarification. Admission and Anticipated Discharge Date Admission Date: July 05, 2024 Subjective Patient seen and examined at bedside. No acute distress, no adverse events overnight He stated that he is feeling better Was saturating 97% on room air Denies any chest pain Stated that he is able to take deeper breaths now Coughing up clear phlegm No hemoptysis Has been afebrile Review of Systems 2 Review of Systems: All systems reviewed & are unremarkable except as noted in Subjective Physical Exam 2 Physical Exam: Constitutional: No acute distress HEENT: EOMI, PERRLA Respiratory system: Good air entry bilaterally, no wheeze, no rhonchi, mild crackles bilateral lower lobes, more on the left side CVS: S1-S2 positive, no murmurs or gallops Abdomen: Soft, nontender, nondistended, positive bowel sounds x4, obese Extremities: +2 pulses bilaterally radialis/ dorsalis pedis, no cyanosis, no edema Neuro: Awake alert oriented x3 Psych: Normal mood and affect G/U: No Bunch Skin: no rashes, warm and dry Lymphatic: no cervical or axillary lymphadenopathy Results & Data Results & Data Vital Signs (Past 12 Hours) Vital Signs Temp Pulse Pulse Resp BP Pulse Ox O2 Del Method 07/07/24 03:25 36.4 C L 73 16 135/77 93 Room Air 07/06/24 23:56 36.4 C L 74 16 139/91 97 Room Air 07/06/24 23:00 Room Air 07/06/24 21:49 96 H Laboratory Results 07/07/24 05:40 07/07/24 05:40 PG Care Time/CCT Total # of Minutes Spent Total Time Spent with Patient: Total time spent is greater than 50% in coordination of care (as documented) at patient's floor/unit and/or counseling patient: Coding Level of Care Code 28571 SUB INP/OBS CARE 2/35MIN Diagnoses Pneumonitis J98.4 Pneumonia J18.9 Laterality: unspecified laterality Lung location: unspecified part of lung Pneumonia type: due to unspecified organism SOB (shortness of breath) on exertion R06.02 Acute respiratory failure with hypoxia J96.01 CLL (chronic lymphocytic leukemia) C91.10 S/p nephrectomy Z90.5 Metastatic renal cell carcinoma to lung C78.00; C64.9 Chronic kidney disease with active medical management without dialysis, stage 3 (moderate) N18.30
--- NOTE | 2024-07-07 08:06 | XRay Report ---
EXAM: XR chest 1V portable CLINICAL HISTORY: Followup. TECHNIQUE: An X-ray image of the chest is obtained in AP projection. COMPARISON: compared to a prior study dated 04/30/2024 and 07/05/2024 was reviewed. FINDINGS: Pulmonary Parenchyma: Bilateral prominent hilar bronchopulmonary vasculature with basal reticulations and left lower zone atelectasis. Otherwise, no evidence of consolidation, collapse, or focal opacities. No pulmonary nodules are identified. No evidence of pleural effusion or pleural thickening. Heart and Mediastinum: Mild cardiomegaly. No mediastinal widening or masses. No hilar or mediastinal lymphadenopathy. Bony Thorax: Bony thorax appears intact without fractures or deformities. Soft Tissues: Soft tissues overlying the chest wall are unremarkable. IMPRESSION: 1. Bilateral prominent hilar bronchopulmonary vasculature with basal reticulations and left lower zone atelectasis. (stable). Clinical and lab correlation is advised. 2. Mild cardiomegaly (stable). 3. No acute cardiopulmonary abnormalities are identified. 4. No time interval significant changes. Electronically signed by Arnie St 07-07-2024 08:06 AM
[2024-07-07] MEDS: LANTUS PER UNIT CHARGE SC SCH (08:50)
[2024-07-07 10:51] VITALS: TEMP 97.3; O2SAT 94
--- NOTE | 2024-07-07 13:06 | Discharge Summary ---
Discharge Summary Date of Service July 07, 2024 Principal Dx & Hospital Course #1 = Principal Diagnosis (1) SOB (shortness of breath) on exertion: SOB on exertion in a patient with CLL, renal cell cancer Consult pulmonary Ordered sputum culture. Patient tolerated bronchoscopy by pulmonary Awaiting lab results. Patient reports feeling better, now on atovaquone. will continue to monitor. discussed with pulmonary provider Concern over PJP pneumonia. (2) CLL (chronic lymphocytic leukemia): stable (3) Renal cell cancer: following with heme onc (4) Hypertension: resume home meds vitals stabel (5) Hyperlipidemia: resume home meds (6) Insulin-requiring or dependent type II diabetes mellitus: consulted glycemic control. (7) Chronic kidney disease with active medical management without dialysis, stage 3 (moderate): creatinine appears to be at baseline on 07/06 (8) Metastatic renal cell carcinoma to lung: Admission HPI Per Admitting Provider Mr. Fisher is a 53-year-old gentleman with history of CLL initially diagnosed around Aug, 2023, renal cell carcinoma s/p left nephrectomy on 12/09/2023 and right lower lobe wedge resection on 01/20/2024. He subsequently received cycle 1 of immunotherapy with ipilimumab/nivolumab on 02/17/2024 but developed immunotherapy induced high-grade fever, transaminitis, rash, shortness of breath and thrombocytopenia necessitating inpatient hospitalization and high-dose steroids. Patient has intermittently has been on high dose steroids over 3 month, recently upped to 60 mg. Patient has not been on Pneumocystis Pneumonia prophylaxis. He has not been able to tolerate Bactrim as oncern that he had pancytopenia, however, this could be secondary to immunotherapy.. And he had never filled the subsequent medication due to insurance approval. Patient over the past 2 weeks, developed a dry cough and worsening SOB upone exertion which prompted him to come to the ED> Discharge Exam Constitutional WD/WN, vitals as above Eyes PERRL, conjunctivae normal, anicteric sclerae ENMT external ear and nose normal, oropharynx normal Neck trachea midline, no thyromegaly Cardiovascular RRR, no murmur, no edema Gastrointestinal (Abdomen) normal bowel sounds, soft, nontender, no hepatosplenomegaly Musculoskeletal no cyanosis or clubbing, extremities motor strength 5/5 Skin no rashes, warm and dry Neurologic PERRL, EOMI, accommodation nl, no face palsy, no dysarthria Psychiatric A+Ox3, euthymic affect Lymphatic no cervical or axillary lymphadenopathy Discharge Plan Discharge Items Patient Disposition: Home - Self-Care Reason For Visit: SOB, PNEUMOITIS Discharge Diagnosis: SOB Activity: Resume your previous activity Non-emergency contact: Primary Care Provider Call non-emergency contact if: you have any medication questions Follow-up/Referrals: Marylou Nazario DO [Primary Care Provider] - Diet: Carb Consistent or DM2 Addtl Attending Provider Instructions: Recommend to continue atovaquone twice a day for 20 days. will continue prednisone taper 40 mg twice a day for 5 days, then 40 mg once a day for 5 days. then 20 mg once a day until seen by Dr. Judge Will continue azithromycin for 3 days Pending Studies at Discharge: No Stand-Alone Forms: [employer] Data [employer]der, Smoking Cessation Medications and DC Order Prescriptions: New atovaquone 750 mg/5 mL suspension 750 mg PO BID 20 Days Qty: 200 0RF Rx Instructions: must administer with food, preferably a high-fat meal prednisone 20 mg tablet 20 mg PO DAILY Qty: 50 0RF Rx Instructions: Take 2 twice a day for 5 days, then 2 once a day for 5 days, then 1 table once a day until seen by Dr. Judge azithromycin 500 mg tablet See Rx Instructions .ROUTE .COMPLEX Qty: 3 0RF Rx Instructions: For 500 mg dose pack: take 500 mg once daily for 3 days Continued pantoprazole [Protonix] 40 mg tablet,delayed release (DR/EC) 40 mg PO DAILY Humulin N NPH Insulin KwikPen 100 unit/mL (3 mL) insulin pen 16 unit subcut QAM (DME) pen needle, diabetic [Pen Needle] 32 gauge x 5/32" needle See Rx Instructions .Route Qty: 400 3RF Rx Instructions: Inject up to 4x/daily injections losartan 50 mg tablet 50 mg PO QAM Qty: 90 1RF insulin aspart U-100 [Novolog FlexPen U-100 Insulin] 100 unit/mL (3 mL) insulin pen 20 unit subcut TID Qty: 30 3RF Rx Instructions: before meals (DME) OneTouch Verio test strips Strip See Rx Instructions .Route Qty: 200 3RF Rx Instructions: Test blood sugar twice daily (DME) Dexcom G7 Sensor Device See Rx Instructions .ROUTE .MEDSUPPLY Qty: 3 3RF Rx Instructions: Change every 10 days to monitor glucose levels. Jardiance 10 mg tablet 10 mg PO DAILY Qty: 90 3RF (DME) blood-glucose meter [OneTouch Verio Flex meter] [facility] [place] .Route Qty: 1 0RF Rx Instructions: As directed, daily testing (DME) lancets [OneTouch Delica Plus Lancet] 33 gauge misc See Rx Instructions .Route Qty: 100 2RF Rx Instructions: As directed, bid testing albuterol sulfate 90 mcg/actuation HFA aerosol inhaler 1 puff INHALATION DIRECTED PRN (Reason: sob/wheezing) Rx Instructions: Every 4 to 6 hours Discontinued prednisone 20 mg tablet 60 mg PO DAILY Discharge Orders: Discharge Order (Routine); Ordered 07/07/24 Ordered By: Wilfred Talley/Other Patient Handouts: Managing Type 2 Diabetes Admission Data Admit Date/Time: 07/05/24 10:43 Attending Provider: Wilfred Chilel Admit Provider: Wilfred Chilel Primary Care Provider: Marylou Nazario Other Providers: Wilfred Chilel; Ketty Mendoza Hospital Stay Data Consultations 07/05/24 10:31 ED Decision to Admit Stat 07/05/24 10:47 Consult Pulmonology Routine Procedures Performed Operation Date: 07/06/24 07:00 Actual Procedures p Bronchoscopy Respiratory - Ketty Mendoza MD, [facility] Diagnostic Imagining Performed 07/05/24 11:45 CT chest diagnostic wo con Stat 07/05/24 16:03 US venous doppler LE BI Urgent Pending Results Patient Have Any Pending Studies at Discharge: No Discharge Instructions Given to Patient (Per Discharging Provider) Recommend to continue atovaquone twice a day for 20 days. will continue prednisone taper 40 mg twice a day for 5 days, then 40 mg once a day for 5 days. then 20 mg once a day until seen by Dr. Judge Will continue azithromycin for 3 days Coding Diagnoses SOB (shortness of breath) on exertion R06.02 CLL (chronic lymphocytic leukemia) C91.10 Renal cell cancer C64.9 Laterality: unspecified laterality Hypertension I10 Hyperlipidemia E78.5 Insulin-requiring or dependent type II diabetes mellitus E11.9; Z79.4 Chronic kidney disease with active medical management without dialysis, stage 3 (moderate) N18.30 Metastatic renal cell carcinoma to lung C78.00; C64.9
[2024-07-07 13:52] VITALS: BP 136/95
[2024-07-07 13:59] VITALS: PULSE 94
[2024-07-11 19:37] LABS: Source BAL LLL
== END 2024-07-07 15:14 | disposition home or self-care (01) | DRG 193 ==
LOC: ED 08:54 → EDINP 10:43 → 4W 13:49